=== PATIENT | female | born 1945 | race Caucasian/White ===

== ENCOUNTER → 2017-07-09 10:30 | Outpatient (CLI) | payer OTHER, SELFPAY ==
[2017-07-09 12:01] LABS: Collection Time Urine 24 Hours; Protein (Total) Urine Random 26 mg/dL (0-12); Total Protein 24 Hour Urine 429 mg/day (42-225); Total Volume Urine 1650 mL
[2017-07-09 12:47] LABS: Estimated Glomerular Filt Rate > 60.0 mL/min (>60)
== END ==
PROVIDERS: PCP Physician Assistant; Visit Provider Physician Assistant
DX: I10 Essential (primary) hypertension (principal); R73.01 Impaired fasting glucose; R80.9 Proteinuria, unspecified; E79.0 Hyperuricemia without signs of inflammatory arthritis and tophaceous disease
CPT/HCPCS: 82565; 84156

== ENCOUNTER → 2017-07-22 09:54 | Outpatient (CLI) | payer OTHER, SELFPAY ==
[2017-07-22 11:07] LABS: Hematocrit 41.4 % (36-46); Mean Corpuscular HGB Conc 33.7 % (30-36); Mean Corpuscular Volume 95.1 fL (80-100); Platelet Count 241 X10^3/uL (150-400); Red Blood Cell Count 4.36 X10^6/uL (4.0-5.2); Red Cell Distribution Width 14.1 % (11.6-14.8); White Blood Cell Count 6.4 X10^3/uL (4.5-11.0)
[2017-07-22 11:51] LABS: Blood Urea Nitrogen 16 mg/dL (7-17); Calcium 9.5 mg/dL (8.4-10.2); Carbon Dioxide 29 mmol/L (22-32); Chloride 101 mmol/L (98-107); Estimated Glomerular Filt Rate > 60.0 mL/min (>60); Glucose 118 mg/dL (80-110); HEMOLYSIS < 15 (0-50); Potassium 4.4 mmol/L (3.4-5.1); Sodium 141 mmol/L (137-145)
[2017-07-22 12:22] LABS: Protein (Total) Urine Random 85 mg/dL (0-12); Protein Creatinine Ratio Urine 0.42 GRAM/24H
== END ==
PROVIDERS: Family Provider Physician Assistant; PCP Physician Assistant; Visit Provider Student in an Organized Health Care Education/Training Program
DX: N05.9 Unspecified nephritic syndrome with unspecified morphologic changes (principal); D70.9 Neutropenia, unspecified; D36.10 Benign neoplasm of peripheral nerves and autonomic nervous system, unspecified; R80.9 Proteinuria, unspecified
CPT/HCPCS: 36415; 80048; 82570; 84156; 85027

== ENCOUNTER → 2017-07-29 13:41 | Outpatient (CLI) | payer OTHER, SELFPAY ==
[2017-07-29 13:58] LABS: Bacteria Urine None Seen
[2017-07-29 14:30] LABS: Appearance Urine UA CLEAR; Bilirubin Urine UA NEGATIVE (NEGATIVE); Color Urine UA YELLOW; Glucose Urine UA NEGATIVE (Normal); Ketones Urine UA NEGATIVE (NEGATIVE); Leukocyte Esterase Urine UA NEGATIVE (NEGATIVE); Nitrite Urine UA Negative (Negative); Occult Blood Urine UA TRACE-LYSED (Negative); Protein Urine UA 1+ (Negative); Specific Gravity Urine UA <=1.005 (1.000-1.035); Urobilinogen Urine UA 0.2 E.U./dL (0.2)
[2017-07-29 14:35] LABS: RBC Urine 0-1/HPF (0-5/HPF)
[2017-07-29 14:36] LABS: Culture Indicated Urine Cult Not Indicated; WBC Urine 0-1/HPF (0-5/HPF)
[2017-07-29 17:01] LABS: Hepatitis B Surface Antigen NEGATIVE s/c (NEGATIVE)
[2017-07-29 17:15] LABS: Hep C Virus Ab w/Reflex Quant NEGATIVE s/c (NEGATIVE)
[2017-07-31 14:12] LABS: DNA (DS) Antibody < 1 IU/mL (< 5)
[2017-07-31 14:24] LABS: Hepatitis B Core Antibody Nonreactive (Nonreactive)
[2017-07-31 14:55] LABS: Free Kappa Light Chain 21.8 mg/L (3.3-19.4); Free Kappa/ Lambda Ratio 1.34 (0.26-1.65); Free Lambda 16.3 mg/L (5.7-26.3)
[2017-07-31 15:21] LABS: Hepatitis B Surf Ab Qualitativ Nonreactive (Nonreactive)
[2017-07-31 16:37] LABS: Complement C3 136 mg/dL (83-193)
[2017-07-31 21:10] LABS: ANCA IGG <1:20 FIU (< 1:20)
[2017-08-01 14:05] LABS: Albumin 76 %; Protein/ Creatinine Ratio 1779 mg/g creat (21-161); Total Urine Protein 45 mg/dL (5-24); Urine Creatinine, Random 25 mg/dL (20-320)
[2017-08-02 20:21] LABS: Albumin 3.7 g/dL (3.8-4.8); Alpha 1 Globulin 0.3 g/dL (0.2-0.3); Alpha 2 Globulin 0.8 g/dL (0.5-0.9); Beta 1 Globulin 0.5 g/dL (0.4-0.6); Gamma Globulin 1.2 g/dL (0.8-1.7); Protein, Total 6.8 g/dL (6.1-8.1)
[2017-08-02 22:21] LABS: ANA Screen NEGATIVE (Negative); DNA Antibody Crithidia IFA POSITIVE (Negative); Rheumatoid Factor <14 IU/mL; Sjogren Antiboday SS-A <1.0 NEG AI (<1.0 NEGATIVE); Sjogren Antiboday SS-B <1.0 NEG AI (<1.0 NEGATIVE); Sm Antibody <1.0 NEG AI (<1.0 NEGATIVE); Sm/RNP Antibody <1.0 NEG AI (<1.0 NEGATIVE)
== END ==
PROVIDERS: Family Provider Physician Assistant; PCP Physician Assistant; Visit Provider Student in an Organized Health Care Education/Training Program
DX: N05.9 Unspecified nephritic syndrome with unspecified morphologic changes (principal); D70.9 Neutropenia, unspecified; D63.1 Anemia in chronic kidney disease; R80.9 Proteinuria, unspecified
CPT/HCPCS: 36415; 81001; 82784; 83520; 83883; 84155; 84156; 84165; 84166; 86038; 86160; 86225; 86255; 86334; 86335; 86430; 86704; 86706; 86803; 87340

== ENCOUNTER → 2017-08-04 14:27 | Outpatient (CLI) | payer OTHER, SELFPAY ==
--- NOTE | 2017-08-04 | DI.US.S_ITS ---
PROCEDURE: US RENAL COMPLETE INDICATIONS: Chronic kidney disease stage II TECHNIQUE: Real-time scanning was performed of the kidneys and bladder, with image documentation. COMPARISON: None. FINDINGS: Kidneys: Kidneys are normal in size. Right kidney measures 12.0 cm long; left kidney measures 19.9 cm long. Right renal cortical thickness is 1.5 cm; left renal cortical thickness is 1.9 cm. Renal cortical echotexture is normal. No hydronephrosis. No suspicious solid mass lesions. There is a 7 mm calcification in the superior pole of the right kidney. There is a 14 x 16 x 17 mm cortical cyst in the inferomedial cortex of the right kidney. Bladder: Pre-void bladder volume is 202 mL. Post-void residual is 15 mL. Pre-void images demonstrate no intraluminal masses or stones. On pre-void images, both ureteral jets are noted with color Doppler interrogation. (Of note, ureteral jets may not be detectable in up to 25% of cases due to insufficient differences in specific gravity between ureteral and bladder urine). Miscellaneous: No free pelvic fluid. IMPRESSION: 1. Nonobstructing calcification and simple cyst right kidney. Normal left kidney. 2. Small postvoid bladder residual. Dictated by: Andi Bella M.D. on 08/04/2017 at 15:07 Approved by: Andi Bella M.D. on 08/04/2017 at 15:09
== END ==
PROVIDERS: Family Provider Physician Assistant; PCP Physician Assistant; Visit Provider Student in an Organized Health Care Education/Training Program
DX: N18.2 Chronic kidney disease, stage 2 (mild) (principal); N28.1 Cyst of kidney, acquired
CPT/HCPCS: 76770

== ENCOUNTER → 2017-09-03 13:00 | Outpatient (CLI) | payer OTHER, SELFPAY ==
[2017-09-03 14:10] LABS: Creatinine Urine Random 118.3 mg/dL; Protein (Total) Urine Random 51 mg/dL (0-12); Protein Creatinine Ratio Urine 0.43 GRAM/24H
[2017-09-03 16:05] LABS: HEMOLYSIS < 15 (0-50); Iron 81 ug/dL (37-170)
[2017-09-03 16:06] LABS: Blood Urea Nitrogen 18 mg/dL (7-17); Calcium 9.6 mg/dL (8.4-10.2); Carbon Dioxide 30 mmol/L (22-32); Chloride 102 mmol/L (98-107); Estimated Glomerular Filt Rate 54.5 mL/min (>60); Glucose 99 mg/dL (80-110); HEMOLYSIS < 15 (0-50); Potassium 4.2 mmol/L (3.4-5.1); Sodium 143 mmol/L (137-145)
[2017-09-03 16:16] LABS: Percent Iron Saturation 24 % (15-50); Total Iron Binding Capacity 339 ug/dL (265-497); Transferrin 271 mg/dL (206-381)
[2017-09-03 16:40] LABS: Ferritin 24.8 ng/mL (11.1-264)
[2017-09-03 19:33] LABS: Hematocrit 40.1 % (36-46); Hemoglobin 13.5 g/dL (12.0-16.0)
[2017-09-05 14:17] LABS: Parathyroid Hormone Int 34 pg/mL (14-64)
== END ==
PROVIDERS: PCP Physician Assistant; Visit Provider Student in an Organized Health Care Education/Training Program
DX: N05.9 Unspecified nephritic syndrome with unspecified morphologic changes (principal); D50.0 Iron deficiency anemia secondary to blood loss (chronic); D64.9 Anemia, unspecified; N25.81 Secondary hyperparathyroidism of renal origin; R80.9 Proteinuria, unspecified
CPT/HCPCS: 36415; 80048; 82570; 82728; 83540; 83550; 83970; 84156; 85014; 85018

== ENCOUNTER → 2017-11-27 12:23 | Outpatient (CLI) | payer OTHER, SELFPAY ==
[2017-11-27 12:34] LABS: Bacteria Urine None Seen; RBC Urine None Seen (0-5/HPF)
[2017-11-27 13:09] LABS: Add Manual Diff / Slide Review NO; Basophils Percent Auto 0.6 % (0-2); Eosinophils Percent Auto 3.5 % (2-4); Hematocrit 39.6 % (36-46); Hemoglobin 13.2 g/dL (12.0-16.0); Lymphocytes Percent Auto 23.2 % (25-40); Mean Corpuscular HGB Conc 33.3 % (30-36); Mean Corpuscular Hemoglobin 31.7 PG (26-34); Mean Corpuscular Volume 95.3 fL (80-100); Monocytes Percent Auto 10.2 % (3-14); Neutrophils Absolute Auto 3900 /uL (3000-5900); Neutrophils Percent Auto 62.5 % (50-75); Platelet Count 253 X10^3/uL (150-400); Red Blood Cell Count 4.15 X10^6/uL (4.0-5.2); Red Cell Distribution Width 13.5 % (11.6-14.8); White Blood Cell Count 6.2 X10^3/uL (4.5-11.0)
[2017-11-27 13:17] LABS: Hemoglobin A1C% w Est Avg Glu 5.9 % (4.0-6.0)
[2017-11-27 13:19] LABS: Blood Urea Nitrogen 20 mg/dL (7-17); Calcium 9.3 mg/dL (8.4-10.2); Carbon Dioxide 29 mmol/L (22-32); Chloride 103 mmol/L (98-107); Estimated Glomerular Filt Rate > 60.0 mL/min (>60); Glucose 98 mg/dL (80-110); HEMOLYSIS < 15 (0-50); Potassium 4.1 mmol/L (3.4-5.1); Sodium 145 mmol/L (137-145)
[2017-11-27 13:28] LABS: Appearance Urine UA CLEAR; Bilirubin Urine UA NEGATIVE (NEGATIVE); Color Urine UA YELLOW; Glucose Urine UA NEGATIVE (Normal); Ketones Urine UA TRACE (NEGATIVE); Leukocyte Esterase Urine UA NEGATIVE (NEGATIVE); Nitrite Urine UA Negative (Negative); Occult Blood Urine UA NEGATIVE (Negative); Protein Urine UA NEGATIVE (Negative); Urobilinogen Urine UA 0.2 E.U./dL (0.2)
[2017-11-27 13:42] LABS: Squamous Epithelial Cell Urine 0-1 /HPF; WBC Urine 0-1/HPF (0-5/HPF)
[2017-11-27 13:42] LABS: Transferrin 293 mg/dL (206-381)
[2017-11-27 13:43] LABS: Culture Indicated Urine Cult Not Indicated
== END ==
PROVIDERS: Family Provider Physician Assistant; PCP Physician Assistant; Visit Provider Orthopaedic Surgery
DX: M25.562 Pain in left knee (principal); Z01.812 Encounter for preprocedural laboratory examination; D50.0 Iron deficiency anemia secondary to blood loss (chronic); R73.9 Hyperglycemia, unspecified; N39.0 Urinary tract infection, site not specified; I10 Essential (primary) hypertension; Z01.818 Encounter for other preprocedural examination
CPT/HCPCS: 36415; 80048; 81001; 83036; 84466; 85025; 93005

== ENCOUNTER 2017-12-26 08:09 | Inpatient (IN) | payer OTHER, SELFPAY ==
[2017-12-19 13:37] VITALS: BMI 34.3
[2017-12-26] VITALS (17 sets, daily range): BP systolic 110–163; BP diastolic 56–79; PULSE 60–77; RESP 13–18; TEMP 35.6–37.6; O2SAT 92–100; BMI 34.3
--- NOTE | 2017-12-26 | DI.RAD.S_ITS ---
PROCEDURE: XR KNEE LT 1TO2V INDICATIONS: post operative total left knee TECHNIQUE: 2 view(s) of the knee acquired. COMPARISON: [facility], , KNEE 1-2 VIEWS LEFT, 11/01/2008, 8:19. FINDINGS: Bones: Patient is status post left knee joint arthroplasty. Hardware components are in expected positions. Visualized bony structures are intact. Soft tissues: Overlying postoperative changes are noted. IMPRESSION: Normal alignment after left total knee arthroplasty, a small amount of postoperative gas overlies the adjacent soft tissues. Dictated by: Cristopher Mustafa M.D. on 12/26/2017 at 15:47 Approved by: Cristopher Mustafa M.D. on 12/26/2017 at 15:48
[2017-12-26] MEDS: LACTATED RINGERS 1,000 ML 42 ML IV (09:00)
[2017-12-26] MEDS: ACETAMINOPHEN 325 MG TABLET 975 MG PO (09:12)
[2017-12-26] MEDS: PREGABALIN 75 MG CAPSULE PO (09:12)
--- NOTE | 2017-12-26 09:48 | PM.PREOP ---
Pre-operative Note Interval Note Pre-op Check: Yes History & Physical Reviewed by Physician and Yes Exam Performed Changes: No
--- NOTE | 2017-12-26 10:01 | PM.OP.1 ---
Operative Date/Time/Diagnoses Date of procedure: 12/26/17 Time of procedure: 12:20 Pre-op diagnosis: Left knee osteoarthritis Post-op diagnosis: same Procedure & Clinicians Procedure: Left total knee replacement Same procedure as scheduled: Yes Indications: The patient has had progressively worsening left knee pain with radiographic changes consistent with arthritis. Non-operative management has failed and the patient has requested total knee replacement. The risks, benefits and alternatives to surgery were discussed with the patient prior to proceeding. Risks discussed included, but were not limited to, failure to relieve pain, stiffness, infection, nerve damage, deep venous thrombosis, pulmonary embolism, stroke, coma, heart attack, permanent paralysis and , as well as the potential need for eventual revision of the prosthetic. Surgeon: Obinna Ch Milieu Counselor: Carlie Leonard Click Yes if Unassisted: No Anesthesia Type: General, Spinal and Local Operative Notes Findings: Severe tricompartmental osteoarthritis with very large osteophytes and significant medial tibial plateau erosion. Closure Type: primary Specimen(s): none sent Implants & Drains: Implants used in this procedure were manufactured by the [employer] and [employer] and included the BCS II Journey total knee replacement with a size 3 left cobalt chromium femur, size 2 left non porous tibial base plate with a 10 mm cross-linked polyethylene insert and a size 29 oval Salma II patellar component. Applied: graft(s) Estimated Blood Loss (mL): 25 Blood products transfused: none Tourniquet time (min): 59 Procedure in detail: The patient was seen in the pre-operative area, where the left knee was identified as the operative site and this was marked with my initials. The patient received pre-operative antibiotics, and was taken to the operating room and placed on the operative table in the supine position. After satisfactory anesthesia, a real time operator out? was performed. The left leg was encircled with a tourniquet about the proximal thigh, and the leg was prepared from the toes to the tourniquet with ChloroPrep in the usual fashion and draped through sterile drapes. The leg was elevated and exsanguinated with Eschmark bandage and the tourniquet inflated to 250 mmHg pressure. The knee was approached through an approximately 18 cm incision centered over the patella and carried into the knee through a medial parapatellar arthrotomy. The anterior osteophytes and soft tissues were removed. The rotational landmarks of Verbank's line and the transepicondylar axis were marked on the femur with electrocautery, and intramedullary guide holes for the femur and tibia were created. The distal femoral cut was made in 6 degrees of valgus using the intramedullary guide at the primary cut setting. The proximal tibial cut was then made using the intramedullary guide, taking 1 mm of bone off the more involved side. The extension gap was checked and the rotation of the femoral component confirmed with the gap balancing blocks. The anterior, posterior and chamfer cuts were then made. The posterior osteophytes and soft tissues were then removed. The posterior capsule was injected with part of a mixture of 50 ml 0.25% Marcaine mixed with 20 ml Exparel and 4 mg of morphine for post-operative pain control. The remainder of this mixture was injected into the capsule and subcutaneous tissues during cement curing. The tibia was prepared with the rotation set by an extra medullary guide. Trial tibial and femoral components were then placed and the intercondylar notch cut through the femoral trial. Range of motion was 0-120 degrees, with good stability throughout the range. Further flexion was limited by the patient's body habitus. The patella was then cut to accommodate the patellar prosthetic. There was no need for a lateral release. The trials were then removed, and the femoral hole plugged with a bone plug. The bone was prepared with pulsatile lavage, and dried with a sponge. Cement was applied and the final prosthetics placed. Excess cement was removed during and after cement curing. After confirming there was no extruded cement posteriorly, the final tibial insert was placed. The knee was copiously irrigated and the tourniquet deflated. Hemostasis was obtained. The capsule was closed with interrupted # 2 polyester sutures. The subcutaneous layer was closed with 3-0 Vicryl, and the skin with a running 3-0 V-Lock suture and SteriStrips. An Aquacel Ag dressing was applied and the patient was taken to recovery having tolerated the procedure well. Complications: none Condition: stable Disposition: PACU Plan for aftercare: The patient will be maintained on a standard total knee replacement protocol with weight bearing as tolerated. The patient will receive aspirin and sequential compression devices for DVT prophylaxis. The patient will be discharged home when safe for the home environment.
[2017-12-26] MEDS: CEFAZOLIN 2 GM/100 ML FROZ.PIGGY IV ×2 (10:38→18:17)
--- NOTE | 2017-12-26 11:16 | SUR.OPER ---
Supine on padded OR bed. Pillow under head, arms secured on padded armboards <90 degree abduction. Safety belt across torso. Non-operative leg secured with tape over blanket over lower leg. Operative leg secured in DeMayo/Max positioner. Foam padded brace at thigh of operative leg.
[2017-12-26] MEDS: BUPIVACAINE LIPOSOME 266 MG/20 ML VIAL INJ (11:23)
[2017-12-26] MEDS: BUPIVACAINE 0.25% W/ EPI VIAL 50 ML INJ (11:23)
[2017-12-26] MEDS: MORPHINE 4 MG/ML INJ IM (11:24)
[2017-12-26] MEDS: TRANEXAMIC ACID 1,000 MG VIAL 2000 MG INJ (11:25)
--- NOTE | 2017-12-26 13:19 | SUR.PHASEI ---
Report called to Will Gutiérrez on acute care. Pt in stable condition, vss. Pt being transferred to acute care floor at this time.
--- NOTE | 2017-12-26 13:31 | SUR.PHASEI ---
PT TRANSFERED TO ACUTE CARE FLOOR. PT TALKING TO RN DURING TRANSPORT. BEDSIDE REPORT GIVEN TO THAO LONGO AND TRANSFERED CARE OF PT TO HER AT THAT TIME.
[2017-12-26] MEDS: LACTATED RINGERS 1,000 ML 125 ML IV ×2 (13:47→22:20)
--- NOTE | 2017-12-26 13:58 | PC.NURSE ---
post-op patient awake, conversant, denies pain. denies nausea. scd's on. given ice chips. ivf infusing per orders. vss. sat 97% on 1L/nc. spouse at bedside. jaun wrap with aquacel cdi. no drain. cms intact. full sensation, able to wiggle toes. extremities warm.
[2017-12-26] MEDS: HYDROCODONE/ACET 5/325 TABLET 2 TAB PO ×2 (14:27→15:19)
[2017-12-26] MEDS: ONDANSETRON 4 MG/2 ML INJ IV ×2 (15:19→22:31)
--- NOTE | 2017-12-26 16:16 | PT.IPTN ---
Current Diagnoses Bilateral primary osteoarthritis of knee (12/26/17) Surgery Performed Operation Date: 12/26/17 10:15 Actual Procedures p Total Knee Arthroplasty(Left) - Obinna Ch MD Physical Therapy Treatment Note M3 PT-IP Subjective Start: 12/26/17 16:15 Freq: NEEDED Status: Active Protocol: Document 12/26/17 16:16 [facility] (Rec: 12/26/17 16:18 [facility] [id number]) Subjective Physical Therapy Visit Type Type Patient Unavailable Notes pt with RT at this time, not available for physical therapy assessment. Will attempt tomorrow in a.m.
[2017-12-26] MEDS: HYDROMORPHONE 1 MG INJ 0.5 MG IV (18:17)
[2017-12-26] MEDS: RAMIPRIL 5 MG CAPSULE 10 MG PO (20:39)
[2017-12-26] MEDS: DOCUSATE 100 MG CAPSULE PO (20:39)
[2017-12-26] MEDS: SIMVASTATIN 40 MG TABLET PO (20:39)
[2017-12-26] MEDS: METOPROLOL IR 50 MG TABLET PO (20:39)
[2017-12-26] MEDS: ASPIRIN EC 81 MG TABLET PO (20:39)
[2017-12-26] MEDS: BECLOMETHASONE 80 MCG INH 10.6 GM 1 PUFF INH (21:24)
[2017-12-27] VITALS (8 sets, daily range): BP systolic 115–136; BP diastolic 57–69; PULSE 56–75; RESP 15–17; TEMP 36.4–37.2; O2SAT 94–98
[2017-12-27] MEDS: HYDROCODONE/ACET 5/325 TABLET 2 TAB PO ×4 (01:53→17:39)
[2017-12-27] MEDS: CEFAZOLIN 2 GM/100 ML FROZ.PIGGY IV (01:55)
[2017-12-27] MEDS: BECLOMETHASONE 80 MCG INH 10.6 GM 1 PUFF INH ×2 (05:17→17:37)
[2017-12-27] MEDS: DOCUSATE 100 MG CAPSULE PO ×2 (08:15→20:35)
[2017-12-27] MEDS: ALLOPURINOL 100 MG TABLET PO (08:15)
[2017-12-27 08:16] LABS: Hematocrit 34.4 % (36-46); Hemoglobin 11.7 g/dL (12.0-16.0)
[2017-12-27] MEDS: ASPIRIN EC 81 MG TABLET PO ×2 (08:16→20:35)
[2017-12-27] MEDS: METOPROLOL IR 50 MG TABLET PO ×2 (08:16→20:35)
[2017-12-27] MEDS: RAMIPRIL 5 MG CAPSULE 10 MG PO ×2 (08:16→20:35)
--- NOTE | 2017-12-27 09:04 | P.PN_ITS ---
Subjective Date Patient Seen: 12/27/17 Time Patient Seen: 09:01 Interval history: Patient had nausea and a couple episodes of vomiting yesterday afternoon. Nausea has resolved. Pain moderate. Has not yet worked with physical therapy. Has been up to use the bedside commode. Otherwise without complaints. Exam Vital Signs (past 8 hours): - 12/27/17 05:17 12/27/17 06:40 12/27/17 08:25 Temperature 98.0 F 98.4 F Pulse Rate 71 61 67 Respiratory Rate 16 16 15 Blood Pressure 136/60 119/63 Pulse Oximetry 95 96 94 Oxygen Delivery Method Room Air Oxygen Flow Rate 2 Narrative Exam Narrative: 71-year-old female resting comfortably in bed in no apparent distress. Left knee dressing is clean, dry and intact. Motor functions intact distal left lower extremity. Sensation grossly intact to light touch. Objective Labs Result Diagrams: 12/27/17 07:44 Labs: Laboratory Results - last 24 hr 12/27/17 07:44 Hgb 11.7 L Hct 34.4 L Assessment & Plan Post-op Postoperative Procedures Operation Date: 12/26/17 10:15 Actual Procedures Side Surgeon p Total Knee Arthroplasty Left Obinna Ch MD Postop day 1 status post left total knee replacement. Mobilize with physical therapy today. Likely discharged home tomorrow. Patient is taking [place] 5/325 mg and will continue this at home. She is reminded to adjust her daily Tylenol dose at home. Quality VTE Deep Vein Thrombosis/Pulmonary Embolism Present on Admission: No
--- NOTE | 2017-12-27 10:00 | PT.IIE ---
Current Diagnoses Bilateral primary osteoarthritis of knee (12/26/17) Surgery Performed Operation Date: 12/26/17 10:15 Actual Procedures p Total Knee Arthroplasty(Left) - Obinna Ch MD Surgical History (Last Updated 12/19/17 @ 13:48 by Alison Bland, RN) History of lobectomy of lung (Acute ~12/2016) Hx of tubal ligation (Resolved) Medical History (Last Updated 12/19/17 @ 13:47 by Alison Bland RN) Adenocarcinoma of left lung (Acute ~11/2016) Asthma (Chronic) DJD (degenerative joint disease) of knee (Chronic) Gout (Chronic) Hyperlipemia (Chronic) Hypertension (Chronic) Osteoarthritis (Chronic) Physical Therapy Inpatient Evaluation/Re-Eval M1 PT/OT-IP Prior Functional Status Start: 12/26/17 16:15 Freq: NEEDED Status: Active Protocol: Document 12/27/17 10:00 [facility] (Rec: 12/27/17 10:11 [facility] [id number]) Medical Review Prior Functional Status Medical History Reviewed Yes Mobility and Gait indep. community ambulator without device. Activities of Daily Living and IADL's indep. I/ADLs including driving Social History Household Members spouse Living Arrangements Apartment/Condo Number of Floors (Floors) One Floor Number of Stairs To Enter/Railing? no steps to enter/exit Home Environment High Toilet Walk in Shower Tub/Shower Home Equipment Front Wheel Walker Raised Toilet Seat Without Armrests Shower Seat with Backrest M2 PT-IP Current Condition Start: 12/26/17 16:15 Freq: NEEDED Status: Active Protocol: Document 12/27/17 10:00 [facility] (Rec: 12/27/17 10:11 [facility] [id number]) Physical Therapy Current Condition Current Condition Evaluation Date 12/27/17 Treatment Diagnosis L TKA 12/26/2017, impaired gait and mobility Onset Date 12/26/17 Weight Bearing Status Weight Bearing Status Weight Bear as Tolerated M3 PT-IP Subjective Start: 12/26/17 16:15 Freq: NEEDED Status: Active Protocol: Document 12/27/17 10:00 [facility] (Rec: 12/27/17 10:11 [facility] [id number]) Subjective Physical Therapy Visit Type Type Initial Evaluation Visit Start Time 09:30 Visit Stop Time 10:00 Total Visit Minutes 30 Number of DATA PROCESSING SPECIALIST Visits 0 Physical Therapy Visit Comments Patient Comments pt states that she is ready to get up, she has been to the [facility]. Patient Goals be able to go home tomorrow Therapy Pain Assessment Pain When Pain Assessed At Rest Pain Present Pain Present Pain Reported Location L knee Intensity 2 Scale Used Numeric (1 - 10) M4 PT-IP Mobility and Gait Start: 12/26/17 16:15 Freq: NEEDED Status: Active Protocol: Document 12/27/17 10:00 [facility] (Rec: 12/27/17 10:11 [facility] [id number]) PT-Bed Mobility Assessment Supine to Sit Supine to Sit Contact Guard Assistance Scooting Scooting to Edge of Bed Independent PT-Transfer Assessment Sit to and From Stand Sit to and from Stand Standby Assistance Equipment Transfer Assistive Device Gait Belt Front Wheeled Walker Transfers Transfer Destination Chair Transfer Technique Stand Step Pivot Transfer Ability Level of Assist Standby Assistance Gait Assessment Gait Gait Assistance Required: Standby Assistance Distance (Feet) 30 Assistive Devices Assistive Device Gait Belt Front Wheeled Walker Gait Deviations General Gait Pattern Antalgic Decreased Stride Length Decreased Feet Clearance Factors Limiting Gait Function Factors Limiting Gait Function Decreased Activity Tolerance Decreased Strength Limited Range of Motion Pain Comments Gait Comments step-to pattern PT-Balance Assessment Sitting Balance and Reactions Static Sitting Balance Ability Good Dynamic Sitting Balance Ability Good Standing Balance and Reactions Static Standing Balance Ability Good Dynamic Standing Balance Ability Fair Device Used FWW M5 PT-IP Objective Assessments Start: 12/26/17 16:15 Freq: NEEDED Status: Active Protocol: Document 12/27/17 10:00 [facility] (Rec: 12/27/17 10:11 [facility] [id number]) Orientation Orientation/Cognition Level of Alertness Alert Orientation Name Age Birthday Month Date Year Day of Week Place Situation Gross Range of Motion Lower Extremity ROM Assessment Left Impaired Impairments L knee AROM- 8-89 degrees Strength Lower Extremity Strength Hip L hip flexion 3/5 Knee L knee flexion and extension 3 +/5 Sensation Assessment Sensation Gross Sensation WNL Light Touch Intact M6 PT-IP Treatment Start: 12/26/17 16:15 Freq: NEEDED Status: Active Protocol: Document 12/27/17 10:00 [facility] (Rec: 12/27/17 10:11 [facility] [id number]) Physical Therapy Treatment Exercises Exercises Seated Knee Flexion/Extension Education Education Provided Post-Op Packet Safety M7 PT-IP Assessment and Plan Start: 12/26/17 16:15 Freq: NEEDED Status: Active Protocol: Document 12/27/17 10:00 [facility] (Rec: 12/27/17 10:11 [facility] [id number]) PT Summary Assessment and Plan Potential Rehabilitation Potential Excellent Status of Condition at Evaluation Stable Summary Impairments Pain ROM Strength Balance Transfers Gait Activity Tolerance Assessment Summary POD #1 L TKA. Pt able to lift her LLE without manual assistance. She tolerated ambulation in room well, with proper sequencing and a step- to gait pattern. Pt has support/assistance at home from , expect pt to be able to d/c home when medically stable and cleared by ortho. Goals Bed Mobility Goal Standby Assistance Transfer Goal Standby Assistance Gait Goal Standby Assistance Gait Distance 150 Days to Meet Goals 2 Frequency of Treatment Frequency Of Treatment Twice a Day Treatment Plan Physical Therapy Treatment Plan Bed Mobility Training Transfer Training Gait Training Therapeutic Exercise Balance Retraining Discharge Planning Hot or Cold Pack Neuromuscular Re-ed Recommendations To Nursing Amount of Assist Needed 1 Person Assist Discharge Recommendations PT Discharge Recommendations Home with Assistance Outpatient PT
--- NOTE | 2017-12-27 11:15 | CM.DANOTE ---
Patient is a 71 year old female who was admitted on 12/26/17 for Left Total Knee. Pt has [facility] for insurance and her PCP is Dr. Cook. EMR was reviewed. Per MD, pt tolerated procedure well but having some nausea and not stable for d/c home yet today. Per PT, pt participated and spouse bedside and present for CG training and likely home pending further PT. SW met bedside with pt and spouse and explained role and pt confirmed that she lives in [place] in a condo with her spouse and is Independent with ADL's at baseline. Pt states that her spouse can provide assist and transport at d/c and local son who lives in [place] can assist as well if needed. Pt denies any hx of HH or SNF and DPOA is her spouse. Pt and spouse do not anticipate any SW needs at d/c and preference is home with spouse and adult son support. Plan: SW to follow for further PT towards likely d/c home with spouse and adult son support when medically stable. YEN Ramirez Discharge Planning/Care Management CM Discharge Assessment Start: 12/27/17 11:11 Freq: Status: Active Protocol: Document 12/27/17 11:11 [facility] (Rec: 12/27/17 11:15 [facility] [id number]) Discharge Planning Assessment Assigned Fitter Arm[employer] YEN Mercer DPOA/Assigned Designee Name spouse Rai Contact Information [phone] Advance Directives? Yes Advance Directives on File No History Provided By Patient Family Member Medical Record Has Patient been admitted in last 30 No days? Prior Living Arrangements Apartment/Condo Household Members spouse Type of transporation used prior to Drives own vehicle admit Independent with ADL's Yes Is patient alert and oriented? Yes Caregiver for Another No DME Already Rented / Owned Bath Bench FWW / Walker Comment Likely home with spouse and local son support pending further PT Barriers to Discharge No Discharge Plan Home Community Services Physical Therapy Transportation Arrangement Spouse can provide transport home at d/c. Referrals Initiated None needed Whiteboard Updated in Patient Room with Yes name and ext. # of [employer]itter Armament Review Status In Process Please Provide Date Initial DC 12/27/17 Assessment Was Performed Next Review Type Continued Stay Review Pre-Anesthesia Assessment Start: 12/19/17 13:37 Freq: Status: Active Protocol: Document 12/19/17 13:37 [facility] (Rec: 12/19/17 14:32 [facility] [id number]) Pre-Anesthesia Assessment Patient Information Reviewed Via Phone Assessment Assessment Completed With Patient Primary Care Provider Monica Cook Medical Clearance Received Yes Seen Specialist in Last 12 Months Yes Specialist Seen Aligning Inspector Orthopedist Gun Perforator Loader Other Comment Thoracic surgeon Primary Language Romanian Civil Attorney Required No Height 149.86 cm Weight 77.111 kg Body Mass Index (BMI) 34.3 Hearing Ability Normal Visual Assist Glasses Dentition Type Teeth, Natural Present Teeth, Missing Barriers to Learning None Hx Anesthesia Reactions No Hx Family Anesthesia Reaction No Hx Malignant Hyperthermia No Hx Blood Transfusions No Anesthesia Review Requested Yes Measuring Clerk No alcohol intake current alcohol intake frequency holidays/special occasions only Smoking Status Never smoker Substance Use Type does not use Pain Present Pain Reported Musculoskeletal Symptoms Abnormal Gait Difficulty Walking Joint Pain History of Falling (Recent or History of Yes ) Patient is completely paralyzed or No completely immobile Mental Status Oriented to own ability Is patient on oxygen? No Does patient have KIRKPATRICK/SOB No: Only SOB w/asthma flare- ups Hx Sleep Apnea No Suspected Sleep Apnea No Currently Taking a Beta Samantha No Can You Climb a Flight of Stairs Without No SOB Hx Chest Pain No Hx SOB No Hx Syncope or Dizziness No Anti-Coagulant Therapy No Has a Milled Rice Broker No Cardiac Testing No Hx Pacemaker/ICD No Pacemaker Rep Required? No Cardiac Clearance Received Not Applicable Diet Type At Home Regular dysphagia Yes: Occasional choking, I don't take my time Bladder Pattern Incontinent, Stress Nocturia Urinary Catheter Present No Hx Urinary Self Catheterization No Comment CKD Stage II Diabetes No: Pre-Diabetes HgbA1C 5.9 Date 11/27/17 Patient No Lactating No Hx Drug Resistant Organism No Presence of External or Internal Medical No Devices Have you traveled outside the [facility] in the last 30 days? Marital Status Lives With spouse Prior Living Arrangements Apartment/Condo Number of Floors (Floors) One Floor Number of Stairs To Enter/Railing? none Support System Child/Children Spouse Does the Patient Have Assistance After Yes Surgery Patient Discharge Plan Description Return Home Comment Pt has not been advised on length of stay per surgeon's office Feels Safe in Current Environment Yes Been Physically Hurt or Threatened By a No Person in Current Environment Do you have thoughts of harming yourself None or others? Are you currently considering suicide? No Do you have a plan to hurt yourself or No Plan others? Do You Have Any Spiritual Beliefs That No May Affect Your HC Choices? Do You Have Any Cultural Practices That No May Affect Your HC Choices? Spiritual Referral None Comment Gnosticist - Pt will reach out to make arrangements on her own Who Can We Speak to About Patient's Care Family, friends Identifying Code for Release of Patient Declines to issue Information Health Care Proxy/Next of Kin Jamel () Health Care Proxy Emergency Contact Name Jamel () Emergency Contact Advance Directives? Yes Advance Directives on File No Requested Patient Bring Advanced Yes Directives DOS Power of Health Technical Writer No PAC Instructions Do not shave/clip surgical site Durable medical equipment Medications to take/avoid Nasal antibiotic No ETOH/petroleum product on skin DOS NPO Post-op transportation Pre-surgical wash Sturdy shoes/comfortable clothes Do not bring valuables and remove jewelry
--- NOTE | 2017-12-27 14:40 | PT.IPTN ---
Current Diagnoses Bilateral primary osteoarthritis of knee (12/26/17) Surgery Performed Operation Date: 12/26/17 10:15 Actual Procedures p Total Knee Arthroplasty(Left) - Obinna Ch MD Physical Therapy Treatment Note M2 PT-IP Current Condition Start: 12/26/17 16:15 Freq: NEEDED Status: Active Protocol: Document 12/27/17 10:00 [facility] (Rec: 12/27/17 10:11 [facility] [id number]) Physical Therapy Current Condition Current Condition Evaluation Date 12/27/17 Treatment Diagnosis L TKA 12/26/2017, impaired gait and mobility Onset Date 12/26/17 Weight Bearing Status Weight Bearing Status Weight Bear as Tolerated M3 PT-IP Subjective Start: 12/26/17 16:15 Freq: NEEDED Status: Active Protocol: Document 12/27/17 14:40 [facility] (Rec: 12/27/17 16:13 [facility] [id number]) Subjective Physical Therapy Visit Type Type Treatment Note Visit Start Time 14:00 Visit Stop Time 14:40 Total Visit Minutes 40 Number of RECRUITING SCHEDULER Visits 1 Physical Therapy Visit Comments Patient Comments Pt states that she would like to use the bathroom. Therapy Pain Assessment Pain When Pain Assessed At Rest Pain Present Pain Present Pain Reported Location L knee Intensity 2 Scale Used Numeric (1 - 10) M4 PT-IP Mobility and Gait Start: 12/26/17 16:15 Freq: NEEDED Status: Active Protocol: Document 12/27/17 14:40 [facility] (Rec: 12/27/17 16:13 [facility] [id number]) PT-Bed Mobility Assessment Supine to Sit Supine to Sit Contact Guard Assistance Scooting Scooting to Edge of Bed Independent PT-Transfer Assessment Sit to and From Stand Sit to and from Stand Standby Assistance Equipment Transfer Assistive Device Gait Belt Front Wheeled Walker Transfers Transfer Destination Chair Toilet Transfer Ability Level of Assist Standby Assistance Gait Assessment Gait Gait Assistance Required: Standby Assistance Distance (Feet) 80 Assistive Devices Assistive Device Gait Belt Front Wheeled Walker Gait Deviations General Gait Pattern Antalgic Decreased Stride Length Decreased Feet Clearance Factors Limiting Gait Function Factors Limiting Gait Function Decreased Activity Tolerance Decreased Strength Limited Range of Motion Pain M5 PT-IP Objective Assessments Start: 12/26/17 16:15 Freq: NEEDED Status: Active Protocol: Document 12/27/17 10:00 [facility] (Rec: 12/27/17 10:11 [facility] [id number]) Orientation Orientation/Cognition Level of Alertness Alert Orientation Name Age Birthday Month Date Year Day of Week Place Situation Gross Range of Motion Lower Extremity ROM Assessment Left Impaired Impairments L knee AROM- 8-89 degrees Strength Lower Extremity Strength Hip L hip flexion 3/5 Knee L knee flexion and extension 3 +/5 Sensation Assessment Sensation Gross Sensation WNL Light Touch Intact M6 PT-IP Treatment Start: 12/26/17 16:15 Freq: NEEDED Status: Active Protocol: Document 12/27/17 14:40 [facility] (Rec: 12/27/17 16:13 [facility] [id number]) Physical Therapy Treatment Exercises Exercises Ankle Pumps Quad Sets Straight Leg Raises Seated Knee Flexion/Extension M7 PT-IP Assessment and Plan Start: 12/26/17 16:15 Freq: NEEDED Status: Active Protocol: Document 12/27/17 14:40 [facility] (Rec: 12/27/17 16:13 GGD [id number]) PT Summary Assessment and Plan Summary Assessment Summary Pt improving with mobility and gait tolerance. Pt was able to progress gait with cues for gait pattern. She was able to progress to step through gait pattern. She safe to D/C home when medically stable. Frequency of Treatment Frequency Of Treatment Twice a Day Treatment Plan Physical Therapy Treatment Plan Bed Mobility Training Transfer Training Gait Training Therapeutic Exercise Balance Retraining Discharge Planning Hot or Cold Pack Neuromuscular Re-ed Recommendations To Nursing Amount of Assist Needed 1 Person Assist Discharge Recommendations PT Discharge Recommendations Home with Assistance Outpatient PT
[2017-12-27] MEDS: SIMVASTATIN 40 MG TABLET PO (20:35)
[2017-12-28] MEDS: hydrOXYzine pamoate 25 MG CAPSULE PO (03:17)
[2017-12-28 03:23] VITALS: O2SAT 100
[2017-12-28 06:46] VITALS: RESP 16
[2017-12-28 07:14] VITALS: BP 145/65; PULSE 71; RESP 16; TEMP 37.3; O2SAT 98
[2017-12-28] MEDS: HYDROMORPHONE 2 MG TABLET PO (07:37)
[2017-12-28 07:41] VITALS: PULSE 75; RESP 14; O2SAT 97
[2017-12-28] MEDS: BECLOMETHASONE 80 MCG INH 10.6 GM 1 PUFF INH (07:41)
[2017-12-28] MEDS: ALLOPURINOL 100 MG TABLET PO (08:01)
[2017-12-28] MEDS: DOCUSATE 100 MG CAPSULE PO (08:01)
[2017-12-28] MEDS: METOPROLOL IR 50 MG TABLET PO (08:01)
[2017-12-28] MEDS: ASPIRIN EC 81 MG TABLET PO (08:02)
[2017-12-28] MEDS: RAMIPRIL 5 MG CAPSULE 10 MG PO (08:02)
[2017-12-28 09:00] VITALS: BP 132/58; PULSE 71; RESP 16; TEMP 36.8; O2SAT 94
--- NOTE | 2017-12-28 10:35 | PM.PNPO.1 ---
Subjective Date Patient Seen: 12/28/17 Time Patient Seen: 10:35 Interval history: Patient is status post a left total knee arthroplasty. Patient doing very well today. Much better pain control. Patient has progressed very well with physical therapy and is ready to go home. Exam Vital Signs (past 8 hours): - 12/28/17 03:23 12/28/17 06:46 12/28/17 07:14 Temperature 99.1 F Pulse Rate 71 Respiratory Rate 16 16 Blood Pressure 145/65 H Pulse Oximetry 100 98 12/28/17 07:41 12/28/17 09:00 Temperature 98.3 F Pulse Rate 75 71 Respiratory Rate 14 16 Blood Pressure 132/58 L Pulse Oximetry 97 94 Oxygen Delivery Method Room Air Oxygen Flow Rate 0 Narrative Exam Narrative: Patient's incision is clean and dry. Positive dorsiflexion and plantar flexion. Nontender to the posterior aspect bilateral calves. Palpable pedal pulses. 5/5 dorsiflexion and plantar flexion of the toes and ankle. Objective Labs Result Diagrams: 12/27/17 07:44 Assessment & Plan Post-op Postoperative Procedures Operation Date: 12/26/17 10:15 Actual Procedures Side Surgeon p Total Knee Arthroplasty Left Obinna Ch MD Postoperative day: 2 Postoperative status: doing well Postoperative plan: routine post-op care and discharge Postoperative plan narrative: Patient will be discharged home today. Time Spent With Patient less than 15 minutes Quality VTE Deep Vein Thrombosis/Pulmonary Embolism Present on Admission: No
--- NOTE | 2017-12-28 11:13 | PT.IPTN ---
Current Diagnoses Bilateral primary osteoarthritis of knee (12/26/17) Surgery Performed Operation Date: 12/26/17 10:15 Actual Procedures p Total Knee Arthroplasty(Left) - Obinna Ch MD Physical Therapy Treatment Note M2 PT-IP Current Condition Start: 12/26/17 16:15 Freq: NEEDED Status: Active Protocol: Document 12/27/17 10:00 [facility] (Rec: 12/27/17 10:11 [facility] [id number]) Physical Therapy Current Condition Current Condition Evaluation Date 12/27/17 Treatment Diagnosis L TKA 12/26/2017, impaired gait and mobility Onset Date 12/26/17 Weight Bearing Status Weight Bearing Status Weight Bear as Tolerated M3 PT-IP Subjective Start: 12/26/17 16:15 Freq: NEEDED Status: Active Protocol: Document 12/28/17 09:26 LJ (Rec: 12/28/17 11:13 LJ [id number]) Subjective Physical Therapy Visit Type Type Treatment Note Visit Start Time 09:26 Visit Stop Time 09:48 Total Visit Minutes 24 Notes Pt requesting walk then shower . Therapy Pain Assessment Pain When Pain Assessed During Mobility Pain Present Pain Present Pain Reported M4 PT-IP Mobility and Gait Start: 12/26/17 16:15 Freq: NEEDED Status: Active Protocol: Document 12/28/17 09:26 LJ (Rec: 12/28/17 11:13 LJ [id number]) PT-Transfer Assessment Sit to and From Stand Sit to and from Stand Standby Assistance Equipment Transfer Assistive Device Gait Belt Front Wheeled Walker Transfers Transfer Destination Chair Transfer Ability Level of Assist Standby Assistance Comments Mobility Comments Pt able to sit<>stand to/from chair SBA. Appears stable on static and dynamic standing. Gait Assessment Gait Gait Assistance Required: Standby Assistance Distance (Feet) 210 Assistive Devices Assistive Device Gait Belt Front Wheeled Walker Gait Deviations General Gait Pattern Antalgic Decreased Stride Length Decreased Feet Clearance Factors Limiting Gait Function Factors Limiting Gait Function Decreased Activity Tolerance Decreased Strength Limited Range of Motion Pain Comments Gait Comments normalizing to step through pattern with cues M5 PT-IP Objective Assessments Start: 12/26/17 16:15 Freq: NEEDED Status: Active Protocol: Document 12/27/17 10:00 [facility] (Rec: 12/27/17 10:11 [facility] [id number]) Orientation Orientation/Cognition Level of Alertness Alert Orientation Name Age Birthday Month Date Year Day of Week Place Situation Gross Range of Motion Lower Extremity ROM Assessment Left Impaired Impairments L knee AROM- 8-89 degrees Strength Lower Extremity Strength Hip L hip flexion 3/5 Knee L knee flexion and extension 3 +/5 Sensation Assessment Sensation Gross Sensation WNL Light Touch Intact M6 PT-IP Treatment Start: 12/26/17 16:15 Freq: NEEDED Status: Active Protocol: Document 12/28/17 09:26 (Rec: 12/28/17 11:13 [id number]) Physical Therapy Treatment Exercises Exercises Ankle Pumps Quad Sets Straight Leg Raises Seated Knee Flexion/Extension M7 PT-IP Assessment and Plan Start: 12/26/17 16:15 Freq: NEEDED Status: Active Protocol: Document 12/28/17 09:26 (Rec: 12/28/17 11:13 [id number]) PT Summary Assessment and Plan Summary Assessment Summary Pt demonstrates better step thru pattern and upright posture. Will DC home this afternoon. Given education on leg extension exercises. Left pt in chair with ice. Frequency of Treatment Frequency Of Treatment Twice a Day Treatment Plan Physical Therapy Treatment Plan Bed Mobility Training Transfer Training Gait Training Therapeutic Exercise Balance Retraining Discharge Planning Hot or Cold Pack Neuromuscular Re-ed Recommendations To Nursing Amount of Assist Needed 1 Person Assist Discharge Recommendations PT Discharge Recommendations Home with Assistance Outpatient PT
--- NOTE | 2017-12-28 11:54 | CM.DPC ---
DCP/continued: Reviewed chart. Patient with order to d/c home today. Attempted to meet with patient to confirm plan. RN reports that patient left after orders for discharge had been written with no identified d/c planning needs. P: Home today. YEN Montgomery
== END 2017-12-28 11:31 | disposition home or self-care (01) | DRG 470 ==
PROVIDERS: Admitting Provider Orthopaedic Surgery; PCP Physician Assistant; Visit Provider Orthopaedic Surgery
PROC: 0SRD0JZ Replacement of Left Knee Joint with Synthetic Substitute, Open Approach (ICD-10-PCS; CPT 27447; principal; 2017-12-26 10:15)
DX: M17.12 Unilateral primary osteoarthritis, left knee (principal); M32.9 Systemic lupus erythematosus, unspecified; I10 Essential (primary) hypertension; N28.9 Disorder of kidney and ureter, unspecified; E78.5 Hyperlipidemia, unspecified; E11.9 Type 2 diabetes mellitus without complications; J45.909 Unspecified asthma, uncomplicated; M25.762 Osteophyte, left knee; M85.862 Other specified disorders of bone density and structure, left lower leg; R11.2 Nausea with vomiting, unspecified
CPT/HCPCS: 36415; 73560; 85014; 85018; 94640; 94760; 97110; 97116; 97161; 97530; C1776; C9290; J0690; J1100; J1170; J2250; J2270; J2405; J2704; J3010

== ENCOUNTER → 2018-03-05 12:34 | Outpatient (CLI) | payer OTHER, SELFPAY ==
[2017-12-26 13:35] VITALS: BMI 34.3
[2018-03-05 13:26] LABS: Hematocrit 40.3 % (36-46); Hemoglobin 13.5 g/dL (12.0-16.0)
[2018-03-05 13:58] LABS: HEMOLYSIS < 15 (0-50); Iron 98 ug/dL (37-170)
[2018-03-05 14:01] LABS: BUN Creatinine Ratio 24.4 (6-22); Blood Urea Nitrogen 22 mg/dL (7-17); Calcium 9.6 mg/dL (8.4-10.2); Carbon Dioxide 27 mmol/L (22-32); Chloride 103 mmol/L (98-107); Estimated Glomerular Filt Rate > 60.0 mL/min (>60); Glucose 84 mg/dL (80-110); HEMOLYSIS < 15 (0-50); Potassium 4.3 mmol/L (3.4-5.1); Sodium 140 mmol/L (137-145)
[2018-03-05 14:09] LABS: Percent Iron Saturation 27 % (15-50); Total Iron Binding Capacity 358 ug/dL (265-497); Transferrin 304 mg/dL (206-381)
[2018-03-05 14:33] LABS: Ferritin 26.9 ng/mL (11.1-264)
[2018-03-05 15:33] LABS: Creatinine Urine Random 138.5 mg/dL; Protein (Total) Urine Random 16 mg/dL (0-12); Protein Creatinine Ratio Urine 0.11 GRAM/24H
[2018-03-07 14:13] LABS: Parathyroid Hormone Int 36 pg/mL (14-64)
== END ==
PROVIDERS: Family Provider Physician Assistant; PCP Physician Assistant; Visit Provider Student in an Organized Health Care Education/Training Program
DX: R80.9 Proteinuria, unspecified (principal); N05.9 Unspecified nephritic syndrome with unspecified morphologic changes; D50.0 Iron deficiency anemia secondary to blood loss (chronic); D64.9 Anemia, unspecified; N25.81 Secondary hyperparathyroidism of renal origin
CPT/HCPCS: 36415; 80048; 82570; 82728; 83540; 83550; 83970; 84156; 85014; 85018

== ENCOUNTER 2018-03-13 13:00 | Outpatient (RCR) | payer OTHER, SELFPAY ==
--- NOTE | 2017-12-22 11:30 | PT.OPPOC ---
Current Diagnoses Unilateral primary osteoarthritis, left knee (12/22/17) Provider Visit Care Team Role Provider Type Monica Cook PA-C Family Provider Advanced Manager Call Center Primary Care Provider Specialty: Medical Address: [address] [place] [address], [id number] Email: [email or web address] Obinna Ch MD Attending Provider Physician Specialty: Orthopedic Surgery Address: [address] [place] [address], [id number] Email: [email or web address] Plan Of Care PT-OP-T Assessment and Plan Start: 12/23/17 09:12 Freq: Status: Active Protocol: Document 12/22/17 11:30 [facility] (Rec: 12/23/17 11:30 [facility] [id number]) Physical Therapy Assessment Rehab Potential Rehabilitation Potential Good Evaluation Complexity Number of Personal Factors/Comorbidities 1-2 Number of Body Systems Impaired 4 or More Clinical Presentation at Evaluation Evolving Impairments Impairments Activity Tolerance Balance Edema Functional Mobility Gait Pain ROM Soft Tissue Mobility Strength Goals HEP Impairment HEP Short Term Goal (STG) Pt will be indep with HEP & edu prior to sx STG Duration 4 weeks- educated this session Assessment Summary Assessment Pt presents before L TKA for edu on how to prepare as she will have surgery 12/26. Pt was fully educated and has post op PT scheduled for 1 week after sx. Physical Therapy Plan Frequency and Duration Frequency of Treatment 1x/Week Duration of Treatment 1 month Plan of Care Start Date 12/23/17 Plan of Care End Date 01/23/18 Therapeutic Interventions Therapeutic Interventions Aquatic Therapy Balance Training Gait Training Home Exercise Program Joint Mobilizations Manual Therapy Neuromuscular Re-education Patient/Caregiver Education Self-Care/Home Management Soft Tissue Mobilization Taping Therapeutic Activities Therapeutic Exercises Modalities Cold Pack/Ice Massage Electric Stimulation Hot Packs Ultrasound Next Visit Focus/Plan Next Note Type Re-Evaluation Next Visit Plan Re-assess after TKA; review HEP & work on bike & progression of ROM Plan of Care Dates Plan of Care Start Date 12/23/17 Plan of Care End Date 01/23/18 Please Sign and Return: I have reviewed this Plan of Care and certify that the skilled therapy services above are required to meet the patient?s needs. Physician Signature Date Printed Name and Credentials Clinical Instructor Signature Printed Name and Credentials
--- NOTE | 2017-12-22 11:30 | PT.OIE ---
Current Diagnoses Unilateral primary osteoarthritis, left knee (12/22/17) Past Medical History (Last Updated 12/19/17 @ 13:47 by Alison Bland RN) Adenocarcinoma of left lung (Acute ~11/2016) Asthma (Chronic) DJD (degenerative joint disease) of knee (Chronic) Gout (Chronic) Hyperlipemia (Chronic) Hypertension (Chronic) Osteoarthritis (Chronic) Past Surgical History (Last Updated 12/19/17 @ 13:48 by Alison Bland RN) History of lobectomy of lung (Acute ~12/2016) Hx of tubal ligation (Resolved) Provider Visit Care Team Role Provider Type Monica Cook PA-C Family Provider Advanced Airport Operations Officer Primary Care Provider Specialty: Medical Address: [address] [place] [address], [id number] Email: [email or web address] Obinna Ch MD Attending Provider Physician Specialty: Orthopedic Surgery Address: [address] [place] [address], [id number] Email: [email or web address] Physical Therapy Initial Evaluation PT-OP-A Visit Information Start: 12/23/17 09:12 Freq: Status: Active Protocol: Document 12/22/17 11:30 [facility] (Rec: 12/23/17 09:32 [facility] [id number]) Out-Patient Physical Therapy Visit Information Visit Information Visit Type Initial Evaluation Visit Note 1 total visit /15 Visit Start Time 11:25 Visit Stop Time 12:20 Total Visit Minutes 55 Visit Number 03/05 PT-OP-B Current Condition Start: 12/23/17 09:12 Freq: Status: Active Protocol: Document 12/22/17 11:30 [facility] (Rec: 12/23/17 09:32 [facility] [id number]) Current Condition History of Current Condition Current Complaints L >R knee pain with planned L TKA History of Current Condition Pt presents with L knee pain with planned L TKA on 12/26 and reports she plans on getting her R side after she recovers. Pt reports she has pain in standing and household mobility that dec her ability to do activity. 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 Pt has to do stairs with step to pattern and down hill walking>uphill is painful. Treatment Goals Patient/Caregiver Goals walk about 30 min outside, be able to go xmas shopping, ability to do activity without pain or worrying if the activity will cause a lot of pain. Personal Factors Other Personal Factors That May Effect Pt lives in a [facility] with no Therapy/Recovery steps to enter. She has a raised toilet with 1/2 wall for UE support, walk in shower with chair and rails. She has a FWW, 4WW and cane. PT-OP-C Subjective Start: 12/23/17 09:12 Freq: Status: Active Protocol: Document 12/22/17 11:30 [facility] (Rec: 12/23/17 09:32 [facility] [id number]) Patient Questionnaires Lower Extremity Functional Scale LEFS Score 33 LEFS Impairment 40 to 59% Impaired (Score 32- 47) OP-PT Pain Assessment Location L knee Pain Location Details L knee Intensity 8 Scale Used Numeric (1 - 10) Frequency Daily Other Pain Aggravating Factors walking, standing, household work PT-OP-G Mobility & Gait Start: 12/23/17 09:12 Freq: Status: Active Protocol: Document 12/22/17 11:30 [facility] (Rec: 12/23/17 09:32 [facility] [id number]) OP Gait Assessment Comments Gait Comments Pt amb with dec stance time on LLE with dec post depression & hip ext and lat lean to L with stance of LLE PT-OP-K Range of Motion Start: 12/23/17 09:12 Freq: Status: Active Protocol: Document 12/22/17 11:30 [facility] (Rec: 12/23/17 09:32 [facility] [id number]) Knee Goniometric Range of Motion Knee Measured in Degrees Left Patient Position Supine Flexion Active (degrees) 93 Extension Active (degrees) 10 PT-OP-M Strength Start: 12/23/17 09:12 Freq: Status: Active Protocol: Document 12/22/17 11:30 [facility] (Rec: 12/23/17 09:32 [facility] [id number]) Knee Strength Knee Manual Muscle Testing Left Extension (L3) 4 Good PT-OP-Q Treatments Start: 12/23/17 09:12 Freq: Status: Active Protocol: Document 12/22/17 11:30 [facility] (Rec: 12/23/17 09:41 [facility] [id number]) Therapeutic Exercises Supine Exercises passive ext Side left Reps/Minutes x30sec SAQ Side left Reps/Minutes 5 x 5 sec APs Supine Exercise Name APs Side bilateral Reps/Minutes 10 heel slides Supine Exercise Name heel slides Side left Reps/Minutes 5 x 5 sec quad set Supine Exercise Name quad set Side left Reps/Minutes 10 x 5 Sec SLR Supine Exercise Name SLR Side left Reps/Minutes 10 Sitting Exercises knee flex Sitting Exercise Name w/scoot fwd to inc flex Side left Reps/Minutes 10 sec hold Therapeutic Activity Therapeutic Activity stairs Comments edu step to pattern with stairs with 1 rail & cane walker/cane Comments edu on walker and cane use with step to pattern for walker Supine<>sit Comments edu how to complete with dec LE strength sit <>stand Comments edu of how to complete after sx packet edu Name edu on total knee arthoplasty packet info Comments Discussion of safety and prep for edu; edu on car transfers PT-OP-T Assessment and Plan Start: 12/23/17 09:12 Freq: Status: Active Protocol: Document 12/22/17 11:30 [facility] (Rec: 12/23/17 11:30 [facility] [id number]) Physical Therapy Assessment Rehab Potential Rehabilitation Potential Good Evaluation Complexity Number of Personal Factors/Comorbidities 1-2 Number of Body Systems Impaired 4 or More Clinical Presentation at Evaluation Evolving Impairments Impairments Activity Tolerance Balance Edema Functional Mobility Gait Pain ROM Soft Tissue Mobility Strength Goals HEP Impairment HEP Short Term Goal (STG) Pt will be indep with HEP & edu prior to sx STG Duration 4 weeks- educated this session Assessment Summary Assessment Pt presents before L TKA for edu on how to prepare as she will have surgery 12/26. Pt was fully educated and has post op PT scheduled for 1 week after sx. Physical Therapy Plan Frequency and Duration Frequency of Treatment 1x/Week Duration of Treatment 1 month Plan of Care Start Date 12/23/17 Plan of Care End Date 01/23/18 Therapeutic Interventions Therapeutic Interventions Aquatic Therapy Balance Training Gait Training Home Exercise Program Joint Mobilizations Manual Therapy Neuromuscular Re-education Patient/Caregiver Education Self-Care/Home Management Soft Tissue Mobilization Taping Therapeutic Activities Therapeutic Exercises Modalities Cold Pack/Ice Massage Electric Stimulation Hot Packs Ultrasound Next Visit Focus/Plan Next Note Type Re-Evaluation Next Visit Plan Re-assess after TKA; review HEP & work on bike & progression of ROM
--- NOTE | 2018-01-02 16:15 | PT.OTN ---
Current Diagnoses Unilateral primary osteoarthritis, left knee (01/02/18) Physical Therapy Treatment Note PT-OP-A Visit Information Start: 12/23/17 09:12 Freq: Status: Active Protocol: Document 01/02/18 13:00 [facility] (Rec: 01/02/18 13:22 [facility] [id number]) Out-Patient Physical Therapy Visit Information Visit Information Visit Type Treatment Note Visit Note 2 total visit /15 Visit Start Time 13:05 Visit Stop Time 13:55 Total Visit Minutes 50 Visit Number 04/05 PT-OP-B Current Condition Start: 12/23/17 09:12 Freq: Status: Active Protocol: Document 12/22/17 11:30 [facility] (Rec: 12/23/17 09:32 [facility] [id number]) Current Condition History of Current Condition Current Complaints L >R knee pain with planned L TKA History of Current Condition Pt presents with L knee pain with planned L TKA on 12/26 and reports she plans on getting her R side after she recovers. Pt reports she has pain in standing and household mobility that dec her ability to do activity. She she does the NUstep and treadmill for her maintenance program at [facility] but cannot walk out side d/t high level pain. Pt has to do stairs with step to pattern and down hill walking>uphill is painful. Treatment Goals Patient/Caregiver Goals walk about 30 min outside, be able to go xmas shopping, ability to do activity without pain or worrying if the activity will cause a lot of pain. Personal Factors Other Personal Factors That May Effect Pt lives in a [facility] with no Therapy/Recovery steps to enter. She has a raised toilet with 1/2 wall for UE support, walk in shower with chair and rails. She has a FWW, 4WW and cane. PT-OP-C Subjective Start: 12/23/17 09:12 Freq: Status: Active Protocol: Document 01/02/18 13:00 [facility] (Rec: 01/02/18 13:22 [facility] [id number]) OP-PT Subjective Patient Comments Patient Comments Pt reports surgery went well. Reports she has been doing her exercises. Notes knee has still been giving her pain, but she has been dec hydrocodone use d/t dreams. She uses tylenol in between but knows the hydrocodone has tylenol also so she is careful not to take too much. OP-PT Pain Assessment Location L knee Pain Location Details L knee Intensity 10 Scale Used Numeric (1 - 10) Description- Other 2-3/10 at rest; activity 7-10 Frequency Daily PT-OP-G Mobility & Gait Start: 12/23/17 09:12 Freq: Status: Active Protocol: Document 12/22/17 11:30 [facility] (Rec: 12/23/17 09:32 [facility] [id number]) OP Gait Assessment Comments Gait Comments Pt amb with dec stance time on LLE with dec post depression & hip ext and lat lean to L with stance of LLE PT-OP-K Range of Motion Start: 12/23/17 09:12 Freq: Status: Active Protocol: Document 01/02/18 13:00 [facility] (Rec: 01/02/18 13:15 [facility] [id number]) Knee Goniometric Range of Motion Knee Measured in Degrees Left Patient Position Supine Flexion Active (degrees) 63 Extension Active (degrees) 11 PT-OP-M Strength Start: 12/23/17 09:12 Freq: Status: Active Protocol: Document 01/02/18 13:00 [facility] (Rec: 01/02/18 13:14 [facility] [id number]) Hip Strength Hip Manual Muscle Testing Left Flexion (L2) 4 Good Extension (S1) 4 Good Abduction 4- Good- Adduction 3- Fair- External Rotation 3+ Fair+ Internal Rotation 4 Good Comments pain ER Knee Strength Knee Manual Muscle Testing Left Flexion (S2) 4+ Good+ Extension (L3) 4- Good- Comments pain ext PT-OP-Q Treatments Start: 12/23/17 09:12 Freq: Status: Active Protocol: Document 01/02/18 13:00 ML (Rec: 01/02/18 13:45 ML [id number]) Cardio Equipment Recumbent Elliptical (TUTORize) Duration (Minutes) 10 Resistance 1 Seat Position 4&5 Therapeutic Exercises Supine Exercises tennis ball Supine Exercise Name soft tissue mobility Side left Equipment Used tennis ball Comments SI region L glute/piriformis stretch Supine Exercise Name stretch Side left Comments cues for direction to pull knee to get both stretches SAQ Side left Reps/Minutes 5 x 5 sec APs Supine Exercise Name APs Side bilateral Reps/Minutes 6 heel slides Supine Exercise Name heel slides Side left Reps/Minutes 5 x 5 sec; review quad set Supine Exercise Name quad set Side left Reps/Minutes 6 x 5 Sec; review SLR Supine Exercise Name SLR Side left Reps/Minutes 6; review PT-OP-R Modalities Start: 12/23/17 09:12 Freq: Status: Active Protocol: Document 01/02/18 13:00 [facility] (Rec: 01/02/18 13:22 [facility] [id number]) Hot Pack/Cold Pack Treatment Cold Pack Location L knee Patient Position Supine Treatment Duration (minutes) 10 PT-OP-T Assessment and Plan Start: 12/23/17 09:12 Freq: Status: Active Protocol: Document 01/02/18 13:00 ML (Rec: 01/02/18 13:45 ML [id number]) Physical Therapy Assessment Goals endurance Impairment dec endurance Fpc Goal (LTG) Pt will be able to be on her feet to prepare a big meal ( multiple hours of preparation) . LTG Duration 03/04/18 activity tolerance Impairment activity tolerance Short Term Goal (STG) Pt will be able to get from the car to the entrance of the grocery store with no more than 2-3/10 pain. STG Duration 02/01/18 Tanker Serviceman Goal (LTG) Pt will be able to go for a 20 minute walk with no more than 2-3/10 pain. LTG Duration 03/04/18 HEP Impairment HEP Short Term Goal (STG) Pt will be indep with HEP & edu prior to sx STG Duration 4 weeks- educated this session Assessment Summary Assessment Pt reported to PT after surgery ambulating appropriately with her FWW that was fit for her height. Pt reports doing her exercises thoroughly and with accurate set up and mechanics. Pt expressed further goals for therapy and was given a few exercises to take home in order to address her posterior pain on L hip/SI. Physical Therapy Plan Frequency and Duration Frequency of Treatment 1x/Week Duration of Treatment 1 month Plan of Care Start Date 12/23/17 Plan of Care End Date 01/23/18 Next Visit Focus/Plan Next Note Type Treatment Note
--- NOTE | 2018-01-05 16:08 | PT.OTN ---
Current Diagnoses Unilateral primary osteoarthritis, left knee (01/05/18) Physical Therapy Treatment Note PT-OP-A Visit Information Start: 12/23/17 09:12 Freq: Status: Active Protocol: Document 01/05/18 13:54 ML (Rec: 01/05/18 14:33 ML [id number]) Out-Patient Physical Therapy Visit Information Visit Information Visit Type Treatment Note Visit Note 3 total visit /15 Visit Start Time 13:50 Visit Stop Time 14:40 Total Visit Minutes 50 Visit Number 05/03 PT-OP-B Current Condition Start: 12/23/17 09:12 Freq: Status: Active Protocol: Document 12/22/17 11:30 [facility] (Rec: 12/23/17 09:32 [facility] [id number]) Current Condition History of Current Condition Current Complaints L >R knee pain with planned L TKA History of Current Condition Pt presents with L knee pain with planned L TKA on 12/26 and reports she plans on getting her R side after she recovers. Pt reports she has pain in standing and household mobility that dec her ability to do activity. She she does the NUstep and treadmill for her maintenance program at [facility] but cannot walk out side d/t high level pain. Pt has to do stairs with step to pattern and down hill walking>uphill is painful. Treatment Goals Patient/Caregiver Goals walk about 30 min outside, be able to go xmas shopping, ability to do activity without pain or worrying if the activity will cause a lot of pain. Personal Factors Other Personal Factors That May Effect Pt lives in a [facility] with no Therapy/Recovery steps to enter. She has a raised toilet with 1/2 wall for UE support, walk in shower with chair and rails. She has a FWW, 4WW and cane. PT-OP-C Subjective Start: 12/23/17 09:12 Freq: Status: Active Protocol: Document 01/05/18 13:54 ML (Rec: 01/05/18 14:33 ML [id number]) OP-PT Subjective Patient Comments Patient Comments Pt reports that her pain continues and she does not like to take the pain medications because they give her horrible dreams. PT-OP-G Mobility & Gait Start: 12/23/17 09:12 Freq: Status: Active Protocol: Document 12/22/17 11:30 [facility] (Rec: 12/23/17 09:32 [facility] [id number]) OP Gait Assessment Comments Gait Comments Pt amb with dec stance time on LLE with dec post depression & hip ext and lat lean to L with stance of LLE PT-OP-K Range of Motion Start: 12/23/17 09:12 Freq: Status: Active Protocol: Document 01/02/18 13:00 [facility] (Rec: 01/02/18 13:15 [facility] [id number]) Knee Goniometric Range of Motion Knee Measured in Degrees Left Patient Position Supine Flexion Active (degrees) 63 Extension Active (degrees) 11 PT-OP-M Strength Start: 12/23/17 09:12 Freq: Status: Active Protocol: Document 01/02/18 13:00 [facility] (Rec: 01/02/18 13:14 [facility] [id number]) Hip Strength Hip Manual Muscle Testing Left Flexion (L2) 4 Good Extension (S1) 4 Good Abduction 4- Good- Adduction 3- Fair- External Rotation 3+ Fair+ Internal Rotation 4 Good Comments pain ER Knee Strength Knee Manual Muscle Testing Left Flexion (S2) 4+ Good+ Extension (L3) 4- Good- Comments pain ext PT-OP-Q Treatments Start: 12/23/17 09:12 Freq: Status: Active Protocol: Document 01/05/18 13:54 ML (Rec: 01/05/18 14:33 ML [id number]) Cardio Equipment Recumbent Elliptical (Quora) Duration (Minutes) 6 Resistance 3 Seat Position 6 Therapeutic Exercises Supine Exercises malathi stretch Supine Exercise Name malathi test stretch Comments HEP Sidelying Exercises abduction Sidelying Exercise Name hip abd Comments bilat, no resistance clamshells Comments bilat; no resistance Sitting Exercises active knee flex Sitting Exercise Name bilat Resistance lvl 1 Manual Therapy Treatment Soft Tissue Mobilization IT band L Body Location L Mobilization Type Myofascial Release Strumming quad L Body Location VMO and rectus femoris Mobilization Type Myofascial Release Rolling Sustained Pressure Comments w/active DF/PF hamstring L Body Location L Mobilization Type Myofascial Release Rolling Sustained Pressure PT-OP-R Modalities Start: 12/23/17 09:12 Freq: Status: Active Protocol: Document 01/05/18 13:54 ML (Rec: 01/05/18 14:33 ML [id number]) Hot Pack/Cold Pack Treatment Cold Pack Location L knee Patient Position Supine Treatment Duration (minutes) 10 Comments front and back PT-OP-T Assessment and Plan Start: 12/23/17 09:12 Freq: Status: Active Protocol: Document 01/05/18 13:54 ML (Rec: 01/05/18 14:33 ML [id number]) Physical Therapy Assessment Goals endurance Impairment dec endurance Die Maker Bench Stamping Goal (LTG) Pt will be able to be on her feet to prepare a big meal ( multiple hours of preparation) . LTG Duration 03/04/18 activity tolerance Impairment activity tolerance Short Term Goal (STG) Pt will be able to get from the car to the entrance of the grocery store with no more than 2-3/10 pain. STG Duration 02/01/18 Usp Goal (LTG) Pt will be able to go for a 20 minute walk with no more than 2-3/10 pain. LTG Duration 03/04/18 HEP Impairment HEP Short Term Goal (STG) Pt will be indep with HEP & edu prior to sx STG Duration 4 weeks- educated this session Assessment Summary Assessment Pt cont to report with pain. Pt also reports that exercises are going well at home, but the stretching ones definitely require effort. Pt was able to demonstrate good glute strength today, more on her uninvolved side than her involved. Pt was unable to do the bike today, but will progress with more ROM. Physical Therapy Plan Frequency and Duration Frequency of Treatment 1x/Week Duration of Treatment 1 month Plan of Care Start Date 12/23/17 Plan of Care End Date 01/23/18 Next Visit Focus/Plan Next Note Type Treatment Note Next Visit Plan 4WW, biodex stepper, bike, progress exercises (seated LAQ w/wt, calf raises, hamstring curls, review HEP, etc), soft tissue, ROM
--- NOTE | 2018-01-09 16:07 | PT.OTN ---
Current Diagnoses Unilateral primary osteoarthritis, left knee (01/09/18) Physical Therapy Treatment Note PT-OP-A Visit Information Start: 12/23/17 09:12 Freq: Status: Active Protocol: Document 01/09/18 13:08 ML (Rec: 01/09/18 13:46 ML [id number]) Out-Patient Physical Therapy Visit Information Visit Information Visit Type Treatment Note Visit Note 4 total visit /15 Visit Start Time 13:02 Visit Stop Time 13:52 Total Visit Minutes 50 Visit Number 06/03 PT-OP-B Current Condition Start: 12/23/17 09:12 Freq: Status: Active Protocol: Document 12/22/17 11:30 [facility] (Rec: 12/23/17 09:32 [facility] [id number]) Current Condition History of Current Condition Current Complaints L >R knee pain with planned L TKA History of Current Condition Pt presents with L knee pain with planned L TKA on 12/26 and reports she plans on getting her R side after she recovers. Pt reports she has pain in standing and household mobility that dec her ability to do activity. She she does the NUstep and treadmill for her maintenance program at [facility] but cannot walk out side d/t high level pain. Pt has to do stairs with step to pattern and down hill walking>uphill is painful. Treatment Goals Patient/Caregiver Goals walk about 30 min outside, be able to go xmas shopping, ability to do activity without pain or worrying if the activity will cause a lot of pain. Personal Factors Other Personal Factors That May Effect Pt lives in a [facility] with no Therapy/Recovery steps to enter. She has a raised toilet with 1/2 wall for UE support, walk in shower with chair and rails. She has a FWW, 4WW and cane. PT-OP-C Subjective Start: 12/23/17 09:12 Freq: Status: Active Protocol: Document 01/09/18 13:08 ML (Rec: 01/09/18 13:46 ML [id number]) OP-PT Subjective Patient Comments Patient Comments Pt reports that she doesn't use her walker much at home because she doesn't note a huge need for it with small distances. But that her pain is not really letting up. She also indicates that she ices for 15min, 4x a day. PT-OP-G Mobility & Gait Start: 12/23/17 09:12 Freq: Status: Active Protocol: Document 12/22/17 11:30 [facility] (Rec: 12/23/17 09:32 [facility] [id number]) OP Gait Assessment Comments Gait Comments Pt amb with dec stance time on LLE with dec post depression & hip ext and lat lean to L with stance of LLE PT-OP-K Range of Motion Start: 12/23/17 09:12 Freq: Status: Active Protocol: Document 01/02/18 13:00 [facility] (Rec: 01/02/18 13:15 [facility] [id number]) Knee Goniometric Range of Motion Knee Measured in Degrees Left Patient Position Supine Flexion Active (degrees) 63 Extension Active (degrees) 11 PT-OP-M Strength Start: 12/23/17 09:12 Freq: Status: Active Protocol: Document 01/02/18 13:00 [facility] (Rec: 01/02/18 13:14 [facility] [id number]) Hip Strength Hip Manual Muscle Testing Left Flexion (L2) 4 Good Extension (S1) 4 Good Abduction 4- Good- Adduction 3- Fair- External Rotation 3+ Fair+ Internal Rotation 4 Good Comments pain ER Knee Strength Knee Manual Muscle Testing Left Flexion (S2) 4+ Good+ Extension (L3) 4- Good- Comments pain ext PT-OP-Q Treatments Start: 12/23/17 09:12 Freq: Status: Active Protocol: Document 01/09/18 13:08 ML (Rec: 01/09/18 13:46 ML [id number]) Cardio Equipment Recumbent Elliptical (Imagekind) Duration (Minutes) 8 Resistance 3 Seat Position 5 Therapeutic Exercises Supine Exercises bridge Supine Exercise Name bridge Side bilateral Comments HEP malathi stretch Supine Exercise Name malathi test stretch Comments HEP heel slides Supine Exercise Name heel slides Side left Reps/Minutes 5 x 5 sec; review; added belt Sitting Exercises active knee flex Sitting Exercise Name bilat Resistance lvl 1 and 2 Comments HEP lvl 2 Gait Training Gait Activity SPC gait training Description SPC gait training Device Used SPC Comments cues for trying to have knee flexion through gait Manual Therapy Treatment Soft Tissue Mobilization quad L Body Location VMO, VLO, and rectus femoris Mobilization Type Myofascial Release Rolling Sustained Pressure PT-OP-R Modalities Start: 10/30/18 09:12 Freq: Status: Active Protocol: Document 01/09/18 13:08 ML (Rec: 01/09/18 14:35 ML [id number]) Hot Pack/Cold Pack Treatment Cold Pack Location L knee Patient Position Supine Treatment Duration (minutes) 10 Comments front and back PT-OP-T Assessment and Plan Start: 12/23/17 09:12 Freq: Status: Active Protocol: Document 01/09/18 13:08 ML (Rec: 01/09/18 13:46 ML [id number]) Physical Therapy Assessment Goals endurance Impairment dec endurance Carport Erector Goal (LTG) Pt will be able to be on her feet to prepare a big meal ( multiple hours of preparation) . LTG Duration 03/04/18 activity tolerance Impairment activity tolerance Short Term Goal (STG) Pt will be able to get from the car to the entrance of the grocery store with no more than 2-3/10 pain. STG Duration 02/01/18 Carport Erector Goal (LTG) Pt will be able to go for a 20 minute walk with no more than 2-3/10 pain. LTG Duration 03/04/18 HEP Impairment HEP Short Term Goal (STG) Pt will be indep with HEP & edu prior to sx STG Duration 4 weeks- educated this session Assessment Summary Assessment Pt is still frustrated with the inc pain, but shows improvement in her gait through WBing through the involved LE well and ability to use a SPC without much correction. Pt instructed that she can use SPC, but to have walker available for getting up at night or times feeling tired. Pt continues to have muscular tightness through her quad which was addressed manually. Pt mentioned that she has difficulty with heel slides and was instructed to use the belt to assist. Pt was given knee flexion exercise to improve those heel slides as well. Pt's other new exercises from last treatment were reviewed and corrected as needed. Physical Therapy Plan Frequency and Duration Frequency of Treatment 1x/Week Duration of Treatment 1 month Plan of Care Start Date 12/23/17 Plan of Care End Date 01/23/18 Next Visit Focus/Plan Next Note Type Treatment Note Next Visit Plan biodex stepper, bike, progress exercises (seated LAQ w/wt, calf raises, review HEP of t test, knee flex), soft tissue, ROM
--- NOTE | 2018-01-12 15:39 | PT.OTN ---
Current Diagnoses Unilateral primary osteoarthritis, left knee (01/12/18) Physical Therapy Treatment Note PT-OP-A Visit Information Start: 12/23/17 09:12 Freq: Status: Active Protocol: Document 01/12/18 14:43 ML (Rec: 01/12/18 14:53 ML [email or web address]) Out-Patient Physical Therapy Visit Information Visit Information Visit Type Treatment Note Visit Note 5 total visit /15 Visit Start Time 13:45 Visit Stop Time 14:30 Total Visit Minutes 45 Visit Number / PT-OP-B Current Condition Start: 12/23/17 09:12 Freq: Status: Active Protocol: Document 12/22/17 11:30 [facility] (Rec: 12/23/17 09:32 [facility] [id number]) Current Condition History of Current Condition Current Complaints L >R knee pain with planned L TKA History of Current Condition Pt presents with L knee pain with planned L TKA on 12/26 and reports she plans on getting her R side after she recovers. Pt reports she has pain in standing and household mobility that dec her ability to do activity. She she does the NUstep and treadmill for her maintenance program at [facility] but cannot walk out side d/t high level pain. Pt has to do stairs with step to pattern and down hill walking>uphill is painful. Treatment Goals Patient/Caregiver Goals walk about 30 min outside, be able to go xmas shopping, ability to do activity without pain or worrying if the activity will cause a lot of pain. Personal Factors Other Personal Factors That May Effect Pt lives in a [facility] with no Therapy/Recovery steps to enter. She has a raised toilet with 1/2 wall for UE support, walk in shower with chair and rails. She has a FWW, 4WW and cane. PT-OP-C Subjective Start: 12/23/17 09:12 Freq: Status: Active Protocol: Document 01/12/18 14:43 ML (Rec: 01/12/18 14:53 ML [id number]) OP-PT Subjective Patient Comments Patient Comments Pt reports that he appointments Friday went well and that they indicated things looked good and she's right on track. PT-OP-G Mobility & Gait Start: 12/23/17 09:12 Freq: Status: Active Protocol: Document 12/22/17 11:30 [facility] (Rec: 12/23/17 09:32 [facility] [id number]) OP Gait Assessment Comments Gait Comments Pt amb with dec stance time on LLE with dec post depression & hip ext and lat lean to L with stance of LLE PT-OP-K Range of Motion Start: 12/23/17 09:12 Freq: Status: Active Protocol: Document 01/02/18 13:00 [facility] (Rec: 01/02/18 13:15 [facility] [id number]) Knee Goniometric Range of Motion Knee Measured in Degrees Left Patient Position Supine Flexion Active (degrees) 63 Extension Active (degrees) 11 PT-OP-M Strength Start: 12/23/17 09:12 Freq: Status: Active Protocol: Document 01/02/18 13:00 [facility] (Rec: 01/02/18 13:14 [facility] [id number]) Hip Strength Hip Manual Muscle Testing Left Flexion (L2) 4 Good Extension (S1) 4 Good Abduction 4- Good- Adduction 3- Fair- External Rotation 3+ Fair+ Internal Rotation 4 Good Comments pain ER Knee Strength Knee Manual Muscle Testing Left Flexion (S2) 4+ Good+ Extension (L3) 4- Good- Comments pain ext PT-OP-Q Treatments Start: 12/23/17 09:12 Freq: Status: Active Protocol: Document 01/12/18 14:43 ML (Rec: 01/12/18 14:53 ML [id number]) Cardio Equipment Recumbent Elliptical (Biodex) Duration (Minutes) 8 Resistance 3 Seat Position 5 Recumbent Bicycle Duration (Minutes) 1 Resistance 1 Seat Position 1 Other for ROM Therapeutic Exercises Supine Exercises malathi stretch Supine Exercise Name malathi test stretch Reps/Minutes reviewed for 1/2 hold time bilat Comments ; discussed getting up and changing legs (always keep one knee flexed/roll) Standing Exercises calf raises Standing Exercise Name calf raises Side bilateral Resistance none Equipment Used bar Reps/Minutes 10x (HEP 10x2) mini squats Standing Exercise Name mini squats Side bilateral Resistance none Equipment Used bar w/chair behind Reps/Minutes 15 Comments HEP (10x2) side step Standing Exercise Name side step Side bilateral Resistance yellow band Equipment Used bar Reps/Minutes 20' x2 each leg Manual Therapy Treatment Soft Tissue Mobilization quad L Body Location VLO Mobilization Type Myofascial Release Rolling Sustained Pressure Comments w/active isometric knee ext from a shortened position hamstring L Body Location L Mobilization Type Myofascial Release Rolling Sustained Pressure Comments w/active isometric knee flex from a shortened position Manual Techniques passive knee ext Body Location femur Body Position Supine Reps/Duration 2x Comments press toward table; 45 sec, rest in flex, 30 sec PT-OP-R Modalities Start: 12/23/17 09:12 Freq: Status: Active Protocol: Document 01/09/18 13:08 ML (Rec: 01/09/18 14:35 ML [id number]) Hot Pack/Cold Pack Treatment Cold Pack Location L knee Patient Position Supine Treatment Duration (minutes) 10 Comments front and back PT-OP-T Assessment and Plan Start: 12/23/17 09:12 Freq: Status: Active Protocol: Document 01/12/18 14:43 ML (Rec: 01/12/18 14:53 ML [id number]) Physical Therapy Assessment Goals endurance Impairment dec endurance Pulverizer Feeder Goal (LTG) Pt will be able to be on her feet to prepare a big meal ( multiple hours of preparation) . LTG Duration 03/04/18 activity tolerance Impairment activity tolerance Short Term Goal (STG) Pt will be able to get from the car to the entrance of the grocery store with no more than 2-3/10 pain. STG Duration 02/01/18 Care Home Goal (LTG) Pt will be able to go for a 20 minute walk with no more than 2-3/10 pain. LTG Duration 03/04/18 HEP Impairment HEP Short Term Goal (STG) Pt will be indep with HEP & edu prior to sx STG Duration 4 weeks- educated this session Assessment Summary Assessment Pt mentioned that she went to the store for an hour with her 4WW and it went well, but was pretty tired after. Pt mentioned not really using an AD at home, and was instructed to use her cane or 4WW. Pt's ROM improved significantly today through manual mobs, assisted with CR. Pt was also able to achieve a full revolution on the recumbent bike, but after a minute was pretty sore, so exercise was terminated. Pt was able to achieve appropriate mechanics for all activities and her HEP was progressed. Physical Therapy Plan Frequency and Duration Frequency of Treatment 1x/Week Duration of Treatment 1 month Plan of Care Start Date 12/23/17 Plan of Care End Date 01/23/18 Next Visit Focus/Plan Next Note Type Treatment Note Next Visit Plan biodex stepper, bike, progress exercises (seated LAQ w/wt, review HEP of calf raises and mini squat), soft tissue, ROM
--- NOTE | 2018-01-14 14:21 | PT.OTN ---
Current Diagnoses Unilateral primary osteoarthritis, left knee (01/14/18) Physical Therapy Treatment Note PT-OP-A Visit Information Start: 12/23/17 09:12 Freq: Status: Active Protocol: Document 01/14/18 13:05 ML (Rec: 01/14/18 13:21 ML [id number]) Out-Patient Physical Therapy Visit Information Visit Information Visit Type Treatment Note Visit Note 6 total visit /15 Visit Start Time 13:02 Visit Stop Time 13:41 Total Visit Minutes 39 Visit Number 08/03 PT-OP-B Current Condition Start: 12/23/17 09:12 Freq: Status: Active Protocol: Document 12/22/17 11:30 [facility] (Rec: 12/23/17 09:32 [facility] [id number]) Current Condition History of Current Condition Current Complaints L >R knee pain with planned L TKA History of Current Condition Pt presents with L knee pain with planned L TKA on 12/26 and reports she plans on getting her R side after she recovers. Pt reports she has pain in standing and household mobility that dec her ability to do activity. She she does the NUstep and treadmill for her maintenance program at [facility] but cannot walk out side d/t high level pain. Pt has to do stairs with step to pattern and down hill walking>uphill is painful. Treatment Goals Patient/Caregiver Goals walk about 30 min outside, be able to go xmas shopping, ability to do activity without pain or worrying if the activity will cause a lot of pain. Personal Factors Other Personal Factors That May Effect Pt lives in a [facility] with no Therapy/Recovery steps to enter. She has a raised toilet with 1/2 wall for UE support, walk in shower with chair and rails. She has a FWW, 4WW and cane. PT-OP-C Subjective Start: 12/23/17 09:12 Freq: Status: Active Protocol: Document 01/14/18 13:05 ML (Rec: 01/14/18 13:21 ML [id number]) OP-PT Subjective Patient Comments Patient Comments Pt notes she has now been using her cane at home when she isn't using her walker as instructed. PT-OP-G Mobility & Gait Start: 12/23/17 09:12 Freq: Status: Active Protocol: Document 12/22/17 11:30 [facility] (Rec: 12/23/17 09:32 [facility] [id number]) OP Gait Assessment Comments Gait Comments Pt amb with dec stance time on LLE with dec post depression & hip ext and lat lean to L with stance of LLE PT-OP-K Range of Motion Start: 12/23/17 09:12 Freq: Status: Active Protocol: Document 01/02/18 13:00 [facility] (Rec: 01/02/18 13:15 [facility] [id number]) Knee Goniometric Range of Motion Knee Measured in Degrees Left Patient Position Supine Flexion Active (degrees) 63 Extension Active (degrees) 11 PT-OP-M Strength Start: 12/23/17 09:12 Freq: Status: Active Protocol: Document 01/02/18 13:00 [facility] (Rec: 01/02/18 13:14 [facility] [id number]) Hip Strength Hip Manual Muscle Testing Left Flexion (L2) 4 Good Extension (S1) 4 Good Abduction 4- Good- Adduction 3- Fair- External Rotation 3+ Fair+ Internal Rotation 4 Good Comments pain ER Knee Strength Knee Manual Muscle Testing Left Flexion (S2) 4+ Good+ Extension (L3) 4- Good- Comments pain ext PT-OP-Q Treatments Start: 12/23/17 09:12 Freq: Status: Active Protocol: Document 01/14/18 13:05 ML (Rec: 01/14/18 13:21 ML [id number]) Cardio Equipment Recumbent Elliptical (Biodex) Duration (Minutes) 8 Resistance 3 Seat Position 5 Recumbent Bicycle Duration (Minutes) 2 Resistance 1 Seat Position 1 Other for ROM Gym Equipment Shuttle Recovery bilat squat Resistance 75 Reps/Time 2x15 unilat squat Details L & R Resistance 50 R; 25 L Reps/Time R2x12; L1x15 Therapeutic Exercises Standing Exercises calf raises Standing Exercise Name calf raises Side bilateral Resistance none Equipment Used bar Reps/Minutes just reviewed 5-8x mini squats Standing Exercise Name mini squats Side bilateral Resistance none Equipment Used bar w/chair behind Reps/Minutes just reviewed 5-8x Manual Therapy Treatment Soft Tissue Mobilization quad L Body Location VMO Mobilization Type Myofascial Release Rolling Sustained Pressure Comments w/active isometric knee ext from a shortened position Joint Mobilizations patella Joint patella Direction inf, sup, and med Comments L PT-OP-R Modalities Start: 12/23/17 09:12 Freq: Status: Active Protocol: Document 01/09/18 13:08 ML (Rec: 01/09/18 14:35 ML [id number]) Hot Pack/Cold Pack Treatment Cold Pack Location L knee Patient Position Supine Treatment Duration (minutes) 10 Comments front and back PT-OP-T Assessment and Plan Start: 12/23/17 09:12 Freq: Status: Active Protocol: Document 01/14/18 13:05 ML (Rec: 01/14/18 13:21 ML [id number]) Physical Therapy Assessment Goals endurance Impairment dec endurance Usp Goal (LTG) Pt will be able to be on her feet to prepare a big meal ( multiple hours of preparation) . LTG Duration 03/04/18 activity tolerance Impairment activity tolerance Short Term Goal (STG) Pt will be able to get from the car to the entrance of the grocery store with no more than 2-3/10 pain. STG Duration 02/01/18 Pc Maintenance Technician Goal (LTG) Pt will be able to go for a 20 minute walk with no more than 2-3/10 pain. LTG Duration 03/04/18 HEP Impairment HEP Short Term Goal (STG) Pt will be indep with HEP & edu prior to sx STG Duration 4 weeks- educated this session Assessment Summary Assessment Pt reported that update HEP was going well, and was reviewed today demonstrating correct form. Pt was cued to use less UE support as able. Pt was able to also work on strengthening for functional activities through the shuttle recovery and improved her tolerance and ROM on the bike today. Pt's patella gliding restrictions were minimal, but her VMO still showed significant tightness which were both addressed manually. Physical Therapy Plan Frequency and Duration Frequency of Treatment 1x/Week Duration of Treatment 1 month Plan of Care Start Date 12/23/17 Plan of Care End Date 01/23/18 Next Visit Focus/Plan Next Note Type Treatment Note Next Visit Plan biodex stepper, bike, progress exercises, shuttle recovery, soft tissue, ROM
--- NOTE | 2018-01-19 15:56 | PT.OTN ---
Current Diagnoses Unilateral primary osteoarthritis, left knee (01/19/18) Physical Therapy Treatment Note PT-OP-A Visit Information Start: 12/23/17 09:12 Freq: Status: Active Protocol: Document 01/19/18 13:50 ML (Rec: 01/19/18 13:56 ML [id number]) Out-Patient Physical Therapy Visit Information Visit Information Visit Type Progress Note Visit Start Time 13:46 Visit Stop Time 14:36 Total Visit Minutes 50 Visit Number 7/10 Number of CONSERVATOR [employer]IFACTS Visits 0 PT-OP-B Current Condition Start: 12/23/17 09:12 Freq: Status: Active Protocol: Document 12/22/17 11:30 [facility] (Rec: 12/23/17 09:32 LR [id number]) Current Condition History of Current Condition Current Complaints L >R knee pain with planned L TKA History of Current Condition Pt presents with L knee pain with planned L TKA on 12/26 and reports she plans on getting her R side after she recovers. Pt reports she has pain in standing and household mobility that dec her ability to do activity. She she does the NUstep and treadmill for her maintenance program at [facility] but cannot walk out side d/t high level pain. Pt has to do stairs with step to pattern and down hill walking>uphill is painful. Treatment Goals Patient/Caregiver Goals walk about 30 min outside, be able to go xmas shopping, ability to do activity without pain or worrying if the activity will cause a lot of pain. Personal Factors Other Personal Factors That May Effect Pt lives in a [facility] with no Therapy/Recovery steps to enter. She has a raised toilet with 1/2 wall for UE support, walk in shower with chair and rails. She has a FWW, 4WW and cane. PT-OP-C Subjective Start: 12/23/17 09:12 Freq: Status: Active Protocol: Document 01/19/18 13:50 ML (Rec: 01/19/18 13:56 ML [id number]) OP-PT Subjective Patient Comments Patient Comments Pt notes that using her hurricane instead of her walker has been going well. PT-OP-G Mobility & Gait Start: 12/23/17 09:12 Freq: Status: Active Protocol: Document 12/22/17 11:30 LR (Rec: 12/23/17 09:32 [facility] [id number]) OP Gait Assessment Comments Gait Comments Pt amb with dec stance time on LLE with dec post depression & hip ext and lat lean to L with stance of LLE PT-OP-K Range of Motion Start: 12/23/17 09:12 Freq: Status: Active Protocol: Document 01/19/18 13:50 ML (Rec: 01/19/18 14:12 ML [id number]) Knee Goniometric Range of Motion Knee Measured in Degrees Left Patient Position Supine Flexion Active (degrees) 102 Extension Active (degrees) 6 PT-OP-M Strength Start: 12/23/17 09:12 Freq: Status: Active Protocol: Document 01/19/18 13:50 ML (Rec: 01/19/18 14:12 ML [id number]) Hip Strength Hip Manual Muscle Testing Left Flexion (L2) 4 Good Extension (S1) 4 Good Abduction 4+ Good+ Adduction 4 Good External Rotation 3+ Fair+ Internal Rotation 4+ Good+ Comments pain ER; adduction limited in range to test amount of give Knee Strength Knee Manual Muscle Testing Left Flexion (S2) 4+ Good+ Extension (L3) 4+ Good+ PT-OP-Q Treatments Start: 12/23/17 09:12 Freq: Status: Active Protocol: Document 01/19/18 13:50 ML (Rec: 01/19/18 13:56 ML [id number]) Cardio Equipment Recumbent Elliptical (BiodPlayJam) Duration (Minutes) 8 Resistance 3 Seat Position 5 Recumbent Bicycle Duration (Minutes) 2 Resistance 1 Seat Position 1 Other for ROM Gym Equipment Shuttle Recovery bilat squat Resistance 75 Reps/Time 1x15 unilat squat Details L & R Resistance 50 R; 25 L Reps/Time R1x15; L1x15 Manual Therapy Treatment Soft Tissue Mobilization adductors Body Location R adductors Mobilization Type Myofascial Release Sustained Pressure Intensity/Depth Moderate Body Position Hooklying Comments w/DF&PF active; modified with pillow under L PT-OP-R Modalities Start: 12/23/17 09:12 Freq: Status: Active Protocol: Document 01/19/18 13:50 ML (Rec: 01/19/18 14:12 ML [id number]) Hot Pack/Cold Pack Treatment Cold Pack Location L knee Patient Position Supine Treatment Duration (minutes) 10 Comments front and back PT-OP-T Assessment and Plan Start: 12/23/17 09:12 Freq: Status: Active Protocol: Document 01/19/18 13:50 ML (Rec: 01/19/18 13:56 ML [id number]) Physical Therapy Assessment Goals endurance Impairment dec endurance Longterm Goal (LTG) Pt will be able to be on her feet to prepare a big meal ( multiple hours of preparation) . LTG Duration 03/04/18 - progressing (1 hour) activity tolerance Impairment activity tolerance Short Term Goal (STG) Pt will be able to get from the car to the entrance of the grocery store with no more than 2-3/10 pain. STG Duration 02/01/18 - progressing (5/10 from a 09/02) Unit Manager [employer] Goal (LTG) Pt will be able to go for a 20 minute walk with no more than 2-3/10 pain. LTG Duration 03/04/18 HEP Impairment HEP Short Term Goal (STG) Pt will be indep with HEP & edu prior to sx STG Duration 4 weeks- achieved Assessment Summary Assessment Pt reported to PT still in pain and inquired about calling her doctor for pain medication refill. Regardless, the pt's pain has dec through activity and at rest as she reports dec pain through being on her feet or ambulation. Pt has also inc her ROM for both flex and ext, and overall has inc strength. Pt continues to be challenged for her ROM through the bike and the leg press. Pt's soft tissue restrictions of her adductors were addressed manually. Physical Therapy Plan Frequency and Duration Frequency of Treatment 1-2x/Week Duration of Treatment 1 month Plan of Care Start Date 01/19/18 Plan of Care End Date 02/18/18 Therapeutic Interventions Therapeutic Interventions Aquatic Therapy Balance Training Coordination Training Gait Training Home Exercise Program Joint Mobilizations Manual Therapy Neuromuscular Re-education Patient/Caregiver Education Self-Care/Home Management Soft Tissue Mobilization Taping Therapeutic Activities Therapeutic Exercises Modalities Cold Pack/Ice Massage Electric Stimulation Hot Packs Iontophoresis Ultrasound Next Visit Focus/Plan Next Note Type Treatment Note Next Visit Plan biodex stepper, bike, progress exercises, shuttle recovery, soft tissue, ROM
--- NOTE | 2018-01-19 18:05 | PT.OPPOC ---
Current Diagnoses Unilateral primary osteoarthritis, left knee (02/06/18) Provider Visit Care Team Role Provider Type Monica Cook PA-C Family Provider Advanced Plate Mill Hand Primary Care Provider Specialty: Medical Address: [address] [place] [address], [id number] Email: [email or web address] Obinna Ch MD Attending Provider Physician Specialty: Orthopedic Surgery Address: [address] [place] [address], [id number] Email: [email or web address] Plan Of Care PT-OP-T Assessment and Plan Start: 12/23/17 09:12 Freq: Status: Active Protocol: Document 02/03/18 13:03 [facility] (Rec: 02/03/18 13:45 [facility] [id number]) Physical Therapy Assessment Goals endurance Impairment dec endurance Shelter Goal (LTG) Pt will be able to be on her feet to prepare a big meal ( multiple hours of preparation) . LTG Duration 03/04/18 - progressing (1 hour) activity tolerance Impairment activity tolerance Short Term Goal (STG) Pt will be able to get from the car to the entrance of the grocery store with no more than 2-3/10 pain. STG Duration 02/01/18 - progressing (5/10 from a 7/10) Shelter Goal (LTG) Pt will be able to go for a 20 minute walk with no more than 2-3/10 pain. LTG Duration 03/04/18 HEP Impairment HEP Short Term Goal (STG) Pt will be indep with HEP & edu prior to sx STG Duration 4 weeks- achieved Assessment Summary Assessment pain and inquired about calling her doctor for pain medication refill. Regardless, the pt's pain has dec through activity and at rest as she reports dec pain through being on her feet or ambulation. Pt has also inc her ROM for both flex and ext, and overall has inc strength. Pt continues to be challenged for her ROM through the bike and the leg press. Pt's soft tissue restrictions of her adductors were addressed manually. Physical Therapy Plan Physical Therapy Plan Frequency and Duration Frequency of Treatment 1-2x/Week Duration of Treatment 1 month Plan of Care Start Date 01/19/18 Plan of Care End Date 02/18/18 Next Visit Focus/Plan Next Note Type Treatment Note Next Visit Plan Advance ROM, focus on glute strength & quad strength Plan of Care Dates Plan of Care Start Date 01/19/18 Plan of Care End Date 02/18/18 Please Sign and Return: I have reviewed this Plan of Care and certify that the skilled therapy services above are required to meet the patient?s needs. Physician Signature Date Printed Name and Credentials Clinical Instructor Signature Printed Name and Credentials
--- NOTE | 2018-01-23 16:00 | PT.OTN ---
Current Diagnoses Unilateral primary osteoarthritis, left knee (01/23/18) Physical Therapy Treatment Note PT-OP-A Visit Information Start: 12/23/17 09:12 Freq: Status: Active Protocol: Document 01/23/18 13:10 ML (Rec: 01/23/18 13:45 ML [id number]) Out-Patient Physical Therapy Visit Information Visit Information Visit Type Treatment Note Visit Start Time 13:05 Visit Stop Time 13:55 Total Visit Minutes 50 Visit Number 10/03 PT-OP-B Current Condition Start: 12/23/17 09:12 Freq: Status: Active Protocol: Document 12/22/17 11:30 LR (Rec: 12/23/17 09:32 [facility] [id number]) Current Condition History of Current Condition Current Complaints L >R knee pain with planned L TKA History of Current Condition Pt presents with L knee pain with planned L TKA on 12/26 and reports she plans on getting her R side after she recovers. Pt reports she has pain in standing and household mobility that dec her ability to do activity. She she does the NUstep and treadmill for her maintenance program at [facility] the [facility] but cannot walk out side d/t high level pain. Pt has to do stairs with step to pattern and down hill walking>uphill is painful. Treatment Goals Patient/Caregiver Goals walk about 30 min outside, be able to go xmas shopping, ability to do activity without pain or worrying if the activity will cause a lot of pain. Personal Factors Other Personal Factors That May Effect Pt lives in a [facility] with no Therapy/Recovery steps to enter. She has a raised toilet with 1/2 wall for UE support, walk in shower with chair and rails. She has a FWW, 4WW and cane. PT-OP-C Subjective Start: 12/23/17 09:12 Freq: Status: Active Protocol: Document 01/23/18 13:10 ML (Rec: 01/23/18 13:45 ML [id number]) OP-PT Subjective Patient Comments Patient Comments Pt notes she went up a lot of shortyer steps with her cane and the rail and it went just fine. She also notes she is taking less pain medication. PT-OP-G Mobility & Gait Start: 12/23/17 09:12 Freq: Status: Active Protocol: Document 12/22/17 11:30 [facility] (Rec: 12/23/17 09:32 [facility] [id number]) OP Gait Assessment Comments Gait Comments Pt amb with dec stance time on LLE with dec post depression & hip ext and lat lean to L with stance of LLE PT-OP-K Range of Motion Start: 12/23/17 09:12 Freq: Status: Active Protocol: Document 01/19/18 13:50 ML (Rec: 01/19/18 14:12 ML [id number]) Knee Goniometric Range of Motion Knee Measured in Degrees Left Patient Position Supine Flexion Active (degrees) 102 Extension Active (degrees) 6 PT-OP-M Strength Start: 12/23/17 09:12 Freq: Status: Active Protocol: Document 01/19/18 13:50 ML (Rec: 01/19/18 14:12 ML [id number]) Hip Strength Hip Manual Muscle Testing Left Flexion (L2) 4 Good Extension (S1) 4 Good Abduction 4+ Good+ Adduction 4 Good External Rotation 3+ Fair+ Internal Rotation 4+ Good+ Comments pain ER; adduction limited in range to test amount of give Knee Strength Knee Manual Muscle Testing Left Flexion (S2) 4+ Good+ Extension (L3) 4+ Good+ PT-OP-Q Treatments Start: 12/23/17 09:12 Freq: Status: Active Protocol: Document 01/23/18 13:10 ML (Rec: 01/23/18 13:45 ML [id number]) Cardio Equipment Recumbent Elliptical (Biodex) Duration (Minutes) 8 Resistance 3-4 Seat Position 5 Recumbent Bicycle Duration (Minutes) 3 Resistance 1 Seat Position 1 Other for ROM Gym Equipment Shuttle Recovery bilat squat Resistance 87 Reps/Time 1x15 unilat squat Details L & R Resistance 67 R; 25 L Reps/Time R1x15; L1x25 Shuttle Balance red clips Details wt shifting Comments side to side Manual Therapy Treatment Soft Tissue Mobilization hamstring L Body Location L Mobilization Type Myofascial Release Sustained Pressure Comments from a passive SLR position with active CR of knee flex; and in hooklying positiong with active DF/PF Manual Techniques passive knee ext Type PA assistance Body Location femur Body Position Supine Comments active DF/PF PT-OP-R Modalities Start: 12/23/17 09:12 Freq: Status: Active Protocol: Document 01/23/18 13:10 ML (Rec: 01/23/18 13:45 ML [id number]) Hot Pack/Cold Pack Treatment Cold Pack Location L knee Patient Position Supine Treatment Duration (minutes) 10 Comments front and back PT-OP-T Assessment and Plan Start: 12/23/17 09:12 Freq: Status: Active Protocol: Document 01/23/18 13:10 ML (Rec: 01/23/18 13:45 ML [id number]) Physical Therapy Assessment Goals endurance Impairment dec endurance Crop Duster Helper Goal (LTG) Pt will be able to be on her feet to prepare a big meal ( multiple hours of preparation) . LTG Duration 03/04/18 - progressing (1 hour) activity tolerance Impairment activity tolerance Short Term Goal (STG) Pt will be able to get from the car to the entrance of the grocery store with no more than 2-3/10 pain. STG Duration 02/01/18 - progressing (5/10 from a 710) Half-Way Goal (LTG) Pt will be able to go for a 20 minute walk with no more than 2-3/10 pain. LTG Duration 03/04/18 HEP Impairment HEP Short Term Goal (STG) Pt will be indep with HEP & edu prior to sx STG Duration 4 weeks- achieved Assessment Summary Assessment Pt's gait still lacks full wt shift and push off on L. Pt's wt shfiting was addressed on the shuttle balance today working on side to side wt shift. Pt's ROM limitations were also addressed today through work on the bike, and manual treatment. Pt was able to improve her mobility and muscle tightness after manual treatment. Pt was able to improve the wt on the leg press as well. Physical Therapy Plan Frequency and Duration Frequency of Treatment 1-2x/Week Duration of Treatment 1 month Plan of Care Start Date 01/19/18 Plan of Care End Date 02/18/18 Next Visit Focus/Plan Next Note Type Treatment Note Next Visit Plan biodex stepper, bike, progress exercises, shuttle balance, shuttle recovery, soft tissue , ROM
--- NOTE | 2018-01-26 13:46 | PT.OTN ---
Current Diagnoses Unilateral primary osteoarthritis, left knee (01/26/18) Physical Therapy Treatment Note PT-OP-A Visit Information Start: 12/23/17 09:12 Freq: Status: Active Protocol: Document 01/26/18 13:00 [facility] (Rec: 01/26/18 13:46 [facility] [id number]) Out-Patient Physical Therapy Visit Information Visit Information Visit Type Treatment Note Visit Start Time 13:00 Visit Stop Time 13:52 Total Visit Minutes 52 Visit Number 05/03 PT-OP-B Current Condition Start: 12/23/17 09:12 Freq: Status: Active Protocol: Document 12/22/17 11:30 [facility] (Rec: 12/23/17 09:32 [facility] [id number]) Current Condition History of Current Condition Current Complaints L >R knee pain with planned L TKA History of Current Condition Pt presents with L knee pain with planned L TKA on 12/26 and reports she plans on getting her R side after she recovers. Pt reports she has pain in standing and household mobility that dec her ability to do activity. She she does the NUstep and treadmill for her maintenance program at pending sale to [facility] but cannot walk out side d/t high level pain. Pt has to do stairs with step to pattern and down hill walking>uphill is painful. Treatment Goals Patient/Caregiver Goals walk about 30 min outside, be able to go xmas shopping, ability to do activity without pain or worrying if the activity will cause a lot of pain. Personal Factors Other Personal Factors That May Effect Pt lives in a [facility] with no Therapy/Recovery steps to enter. She has a raised toilet with 1/2 wall for UE support, walk in shower with chair and rails. She has a FWW, 4WW and cane. PT-OP-C Subjective Start: 12/23/17 09:12 Freq: Status: Active Protocol: Document 01/26/18 13:00 [facility] (Rec: 01/26/18 13:46 [facility] [id number]) OP-PT Subjective Patient Comments Patient Comments Report she tweaked her knee yesterday when getting up off the couch and was painful on lat knee that is a littler better today, but sore med today and in HS. Some soreness noted after leg press in R knee. Reports she had done some vacuuming yesterday. No longer taking narcotics. Tylenol only. PT-OP-G Mobility & Gait Start: 12/23/17 09:12 Freq: Status: Active Protocol: Document 12/22/17 11:30 [facility] (Rec: 12/23/17 09:32 [facility] [id number]) OP Gait Assessment Comments Gait Comments Pt amb with dec stance time on LLE with dec post depression & hip ext and lat lean to L with stance of LLE PT-OP-K Range of Motion Start: 12/23/17 09:12 Freq: Status: Active Protocol: Document 01/19/18 13:50 ML (Rec: 01/19/18 14:12 ML [id number]) Knee Goniometric Range of Motion Knee Measured in Degrees Left Patient Position Supine Flexion Active (degrees) 102 Extension Active (degrees) 6 PT-OP-M Strength Start: 12/23/17 09:12 Freq: Status: Active Protocol: Document 01/19/18 13:50 ML (Rec: 01/19/18 14:12 ML [id number]) Hip Strength Hip Manual Muscle Testing Left Flexion (L2) 4 Good Extension (S1) 4 Good Abduction 4+ Good+ Adduction 4 Good External Rotation 3+ Fair+ Internal Rotation 4+ Good+ Comments pain ER; adduction limited in range to test amount of give Knee Strength Knee Manual Muscle Testing Left Flexion (S2) 4+ Good+ Extension (L3) 4+ Good+ PT-OP-Q Treatments Start: 12/23/17 09:12 Freq: Status: Active Protocol: Document 01/26/18 13:00 [facility] (Rec: 01/26/18 13:46 [facility] [id number]) Cardio Equipment Recumbent Elliptical (Biodex) Duration (Minutes) 4 Resistance 4 Seat Position 4 Recumbent Bicycle Duration (Minutes) 4 Resistance 2 Seat Position 1 Other for ROM Gym Equipment Shuttle Balance red clips Details side Comments wt shift side to side; WBOS then NBOS Therapeutic Exercises Standing Exercises hip ext Standing Exercise Name ext Side bilateral Reps/Minutes 2x10 hip abd Standing Exercise Name abd Side bilateral Reps/Minutes 2x10 mini squats Standing Exercise Name mini squats Side bilateral Resistance L1 around knees Equipment Used bar w/chair behind Reps/Minutes 12 Gait Training Gait Activity No AD Description focus on no lat lean & inc push off Device Used none Comments in mirror Manual Therapy Treatment Soft Tissue Mobilization hamstring L Body Location L Mobilization Type Myofascial Release Sustained Pressure Comments from a passive SLR position with active CR of knee flex; and in hooklying positiong with active DF/PF Manual Techniques passive knee ext Type PA assistance Body Location femur Body Position Supine Comments active DF/PF PT-OP-R Modalities Start: 12/23/17 09:12 Freq: Status: Active Protocol: Document 01/26/18 13:00 [facility] (Rec: 01/26/18 13:46 [facility] [id number]) Hot Pack/Cold Pack Treatment Cold Pack Location L knee Patient Position Supine Treatment Duration (minutes) 10 Comments front and back PT-OP-T Assessment and Plan Start: 12/23/17 09:12 Freq: Status: Active Protocol: Document 01/26/18 13:00 [facility] (Rec: 01/26/18 13:46 [facility] [id number]) Physical Therapy Assessment Goals endurance Impairment dec endurance Ammunition Assembly I Laborer Goal (LTG) Pt will be able to be on her feet to prepare a big meal ( multiple hours of preparation) . LTG Duration 03/04/18 - progressing (1 hour) activity tolerance Impairment activity tolerance Short Term Goal (STG) Pt will be able to get from the car to the entrance of the grocery store with no more than 2-3/10 pain. STG Duration 02/01/18 - progressing (5/10 from a 7/10) Ammunition Assembly I Laborer Goal (LTG) Pt will be able to go for a 20 minute walk with no more than 2-3/10 pain. LTG Duration 03/04/18 HEP Impairment HEP Short Term Goal (STG) Pt will be indep with HEP & edu prior to sx STG Duration 4 weeks- achieved Assessment Summary Assessment Pt was able to improve gait with use of mirror and cueing for inc push off and dec lat lean to L. Difficulty with hip abd in standing to maintain neutral position. Cueing required. Physical Therapy Plan Frequency and Duration Frequency of Treatment 1-2x/Week Duration of Treatment 1 month Plan of Care Start Date 01/19/18 Plan of Care End Date 02/18/18 Next Visit Focus/Plan Next Note Type Treatment Note Next Visit Plan Cont to work on ROM & advance gait & balance; review HEP and progress as needed
--- NOTE | 2018-01-28 13:50 | PT.OTN ---
Current Diagnoses Unilateral primary osteoarthritis, left knee (01/28/18) Physical Therapy Treatment Note PT-OP-A Visit Information Start: 12/23/17 09:12 Freq: Status: Active Protocol: Document 01/28/18 13:03 [facility] (Rec: 01/28/18 13:50 [facility] [id number]) Out-Patient Physical Therapy Visit Information Visit Information Visit Type Treatment Note Visit Start Time 13:04 Visit Stop Time 13:55 Total Visit Minutes 51 Visit Number 06/03 PT-OP-B Current Condition Start: 12/23/17 09:12 Freq: Status: Active Protocol: Document 12/22/17 11:30 [facility] (Rec: 12/23/17 09:32 [facility] [id number]) Current Condition History of Current Condition Current Complaints L >R knee pain with planned L TKA History of Current Condition Pt presents with L knee pain with planned L TKA on 12/26 and reports she plans on getting her R side after she recovers. Pt reports she has pain in standing and household mobility that dec her ability to do activity. She she does the NUstep and treadmill for her maintenance program at [facility] but cannot walk out side d/t high level pain. Pt has to do stairs with step to pattern and down hill walking>uphill is painful. Treatment Goals Patient/Caregiver Goals walk about 30 min outside, be able to go xmas shopping, ability to do activity without pain or worrying if the activity will cause a lot of pain. Personal Factors Other Personal Factors That May Effect Pt lives in a [facility] with no Therapy/Recovery steps to enter. She has a raised toilet with 1/2 wall for UE support, walk in shower with chair and rails. She has a FWW, 4WW and cane. PT-OP-C Subjective Start: 12/23/17 09:12 Freq: Status: Active Protocol: Document 01/28/18 13:03 [facility] (Rec: 01/28/18 13:50 [facility] [id number]) OP-PT Subjective Patient Comments Patient Comments Pt reports she was a little sore after last session. Cont compliance with HEP. PT-OP-G Mobility & Gait Start: 12/23/17 09:12 Freq: Status: Active Protocol: Document 12/22/17 11:30 [facility] (Rec: 12/23/17 09:32 [facility] [id number]) OP Gait Assessment Comments Gait Comments Pt amb with dec stance time on LLE with dec post depression & hip ext and lat lean to L with stance of LLE PT-OP-K Range of Motion Start: 12/23/17 09:12 Freq: Status: Active Protocol: Document 01/19/18 13:50 ML (Rec: 01/19/18 14:12 ML [id number]) Knee Goniometric Range of Motion Knee Measured in Degrees Left Patient Position Supine Flexion Active (degrees) 102 Extension Active (degrees) 6 PT-OP-M Strength Start: 12/23/17 09:12 Freq: Status: Active Protocol: Document 01/19/18 13:50 ML (Rec: 01/19/18 14:12 ML [id number]) Hip Strength Hip Manual Muscle Testing Left Flexion (L2) 4 Good Extension (S1) 4 Good Abduction 4+ Good+ Adduction 4 Good External Rotation 3+ Fair+ Internal Rotation 4+ Good+ Comments pain ER; adduction limited in range to test amount of give Knee Strength Knee Manual Muscle Testing Left Flexion (S2) 4+ Good+ Extension (L3) 4+ Good+ PT-OP-Q Treatments Start: 12/23/17 09:12 Freq: Status: Active Protocol: Document 01/28/18 13:03 [facility] (Rec: 01/28/18 13:50 [facility] [id number]) Cardio Equipment Recumbent Elliptical (Biodex) Duration (Minutes) 3 Resistance 5 Seat Position 4 Recumbent Bicycle Duration (Minutes) 5 Resistance 2 Seat Position 1 Other for ROM Gym Equipment Shuttle Balance red clips Details red Comments wt shift side to side; WBOS then NBOS; WBOS fwd Therapeutic Exercises Supine Exercises bridge Supine Exercise Name arms in air Reps/Minutes 8 heel slides Supine Exercise Name active heel slide with gait belt pull at end Reps/Minutes 4 SLR Supine Exercise Name focus on no ext lag Reps/Minutes 8 Sitting Exercises active knee flex Sitting Exercise Name with passive scoot at end range Standing Exercises calf stretch Standing Exercise Name michael Reps/Minutes 30 sec hip ext Standing Exercise Name ext Side bilateral Reps/Minutes 2x10 hip abd Standing Exercise Name abd Side bilateral Reps/Minutes 2x10 mini squats Standing Exercise Name mini squats Side bilateral Equipment Used bar w/chair behind Reps/Minutes 12 Comments focus on deeper squat Manual Therapy Treatment Joint Mobilizations tibfem Direction AP femur & tibia patella Joint PF Direction sup/inf/med PT-OP-R Modalities Start: 12/23/17 09:12 Freq: Status: Active Protocol: Document 01/28/18 13:03 [facility] (Rec: 01/28/18 13:50 [facility] [id number]) Hot Pack/Cold Pack Treatment Cold Pack Location L knee Patient Position Supine Treatment Duration (minutes) 10 Comments front and back PT-OP-T Assessment and Plan Start: 12/23/17 09:12 Freq: Status: Active Protocol: Document 01/28/18 13:03 [facility] (Rec: 01/28/18 13:50 [facility] [id number]) Physical Therapy Assessment Goals endurance Impairment dec endurance Fdc Goal (LTG) Pt will be able to be on her feet to prepare a big meal ( multiple hours of preparation) . LTG Duration 03/04/18 - progressing (1 hour) activity tolerance Impairment activity tolerance Short Term Goal (STG) Pt will be able to get from the car to the entrance of the grocery store with no more than 2-3/10 pain. STG Duration 02/01/18 - progressing (5/10 from a 7/10) Fdc Goal (LTG) Pt will be able to go for a 20 minute walk with no more than 2-3/10 pain. LTG Duration 03/04/18 HEP Impairment HEP Short Term Goal (STG) Pt will be indep with HEP & edu prior to sx STG Duration 4 weeks- achieved Assessment Summary Assessment Pt cont to have difficulty with balance activity on balance board, but did improve with form with standing exercises. She cont to have wekaness in quad and requires cueing with SLR to avoid ext lag. Improved to full ext after manual rx. Physical Therapy Plan Frequency and Duration Frequency of Treatment 1-2x/Week Duration of Treatment 1 month Plan of Care Start Date 01/19/18 Plan of Care End Date 02/18/18 Next Visit Focus/Plan Next Note Type Treatment Note Next Visit Plan Advance ROM, focus on glute strength & quad strength
--- NOTE | 2018-02-03 13:46 | PT.OTN ---
Current Diagnoses Unilateral primary osteoarthritis, left knee (02/03/18) Physical Therapy Treatment Note PT-OP-A Visit Information Start: 12/23/17 09:12 Freq: Status: Active Protocol: Document 02/03/18 13:03 [facility] (Rec: 02/03/18 13:45 [facility] [id number]) Out-Patient Physical Therapy Visit Information Visit Information Visit Type Treatment Note Visit Start Time 13:00 Visit Stop Time 13:55 Total Visit Minutes 55 Visit Number 07/03 PT-OP-B Current Condition Start: 12/23/17 09:12 Freq: Status: Active Protocol: Document 12/22/17 11:30 [facility] (Rec: 12/23/17 09:32 [facility] [id number]) Current Condition History of Current Condition Current Complaints L >R knee pain with planned L TKA History of Current Condition Pt presents with L knee pain with planned L TKA on 12/26 and reports she plans on getting her R side after she recovers. Pt reports she has pain in standing and household mobility that dec her ability to do activity. She she does the NUstep and treadmill [facility] but cannot walk out side d/t high level pain. Pt has to do stairs with step to pattern and down hill walking>uphill is painful. Treatment Goals Patient/Caregiver Goals walk about 30 min outside, be able to go xmas shopping, ability to do activity without pain or worrying if the activity will cause a lot of pain. Personal Factors Other Personal Factors That May Effect Pt lives in a [facility] with no Therapy/Recovery steps to enter. She has a raised toilet with 1/2 wall for UE support, walk in shower with chair and rails. She has a FWW, 4WW and cane. PT-OP-C Subjective Start: 12/23/17 09:12 Freq: Status: Active Protocol: Document 02/03/18 13:03 [facility] (Rec: 02/03/18 13:45 [facility] [id number]) OP-PT Subjective Patient Comments Patient Comments Pt reports less tylenol today. Reports a couple days ago, she thinks she pushed herself too much with the flex exercise and was sore for about 1.5 days but is better today. She is doing more around the house. PT-OP-G Mobility & Gait Start: 12/23/17 09:12 Freq: Status: Active Protocol: Document 12/22/17 11:30 [facility] (Rec: 12/23/17 09:32 [facility] [id number]) OP Gait Assessment Comments Gait Comments Pt amb with dec stance time on LLE with dec post depression & hip ext and lat lean to L with stance of LLE PT-OP-K Range of Motion Start: 12/23/17 09:12 Freq: Status: Active Protocol: Document 01/19/18 13:50 ML (Rec: 01/19/18 14:12 ML [id number]) Knee Goniometric Range of Motion Knee Measured in Degrees Left Patient Position Supine Flexion Active (degrees) 102 Extension Active (degrees) 6 PT-OP-M Strength Start: 12/23/17 09:12 Freq: Status: Active Protocol: Document 01/19/18 13:50 ML (Rec: 01/19/18 14:12 ML [id number]) Hip Strength Hip Manual Muscle Testing Left Flexion (L2) 4 Good Extension (S1) 4 Good Abduction 4+ Good+ Adduction 4 Good External Rotation 3+ Fair+ Internal Rotation 4+ Good+ Comments pain ER; adduction limited in range to test amount of give Knee Strength Knee Manual Muscle Testing Left Flexion (S2) 4+ Good+ Extension (L3) 4+ Good+ PT-OP-Q Treatments Start: 12/23/17 09:12 Freq: Status: Active Protocol: Document 02/03/18 13:03 [facility] (Rec: 02/03/18 13:45 [facility] [id number]) Cardio Equipment Recumbent Bicycle Duration (Minutes) 6 Resistance 2 Seat Position 1 Other for ROM Therapeutic Exercises Standing Exercises SLS Standing Exercise Name SLS in mirror Side left Equipment Used counter as needed lunge Standing Exercise Name lunge at rail Side bilateral Reps/Minutes 10 mini squats Standing Exercise Name mini squats Side bilateral Equipment Used bar w/chair behind Reps/Minutes 15 Comments focus on deeper squat side step Standing Exercise Name sidestep Resistance yellow Equipment Used rail prn Reps/Minutes 2x20 Manual Therapy Treatment Soft Tissue Mobilization scar tissue Body Location ant knee L Mobilization Type Rolling Intensity/Depth Moderate Body Position Supine PT-OP-R Modalities Start: 12/23/17 09:12 Freq: Status: Active Protocol: Document 02/03/18 13:03 [facility] (Rec: 02/03/18 13:45 [facility] [id number]) Hot Pack/Cold Pack Treatment Cold Pack Location L knee Patient Position Supine Treatment Duration (minutes) 10 Comments front and back PT-OP-T Assessment and Plan Start: 12/23/17 09:12 Freq: Status: Active Protocol: Document 02/03/18 13:03 [facility] (Rec: 02/03/18 13:45 [facility] [id number]) Physical Therapy Assessment Goals endurance Impairment dec endurance Hand Slitter Goal (LTG) Pt will be able to be on her feet to prepare a big meal ( multiple hours of preparation) . LTG Duration 03/04/18 - progressing (1 hour) activity tolerance Impairment activity tolerance Short Term Goal (STG) Pt will be able to get from the car to the entrance of the grocery store with no more than 2-3/10 pain. STG Duration 02/01/18 - progressing (5/10 from a 7/10) [facility] Goal (LTG) Pt will be able to go for a 20 minute walk with no more than 2-3/10 pain. LTG Duration 03/04/18 HEP Impairment HEP Short Term Goal (STG) Pt will be indep with HEP & edu prior to sx STG Duration 4 weeks- achieved Assessment Summary Assessment Pt had improved ROM to 2-117 before manual treatment and full ext after manual rx. Pt educated to work on scar tissue herself during scar tissue work. Physical Therapy Plan Frequency and Duration Frequency of Treatment 1-2x/Week Duration of Treatment 1 month Plan of Care Start Date 01/19/18 Plan of Care End Date 02/18/18 Next Visit Focus/Plan Next Note Type Treatment Note Next Visit Plan Advance ROM, focus on glute strength & quad strength
--- NOTE | 2018-02-06 13:44 | PT.OTN ---
Current Diagnoses Unilateral primary osteoarthritis, left knee (02/06/18) Physical Therapy Treatment Note PT-OP-A Visit Information Start: 12/23/17 09:12 Freq: Status: Active Protocol: Document 02/06/18 13:04 [facility] (Rec: 02/06/18 13:44 [facility] [id number]) Out-Patient Physical Therapy Visit Information Visit Information Visit Type Treatment Note Visit Start Time 13:00 Visit Stop Time 13:55 Total Visit Minutes 55 Visit Number 08/03 PT-OP-B Current Condition Start: 12/23/17 09:12 Freq: Status: Active Protocol: Document 12/22/17 11:30 [facility] (Rec: 12/23/17 09:32 [facility] [id number]) Current Condition History of Current Condition Current Complaints L >R knee pain with planned L TKA History of Current Condition Pt presents with L knee pain with planned L TKA on 12/26 and reports she plans on getting her R side after she recovers. Pt reports she has pain in standing and household mobility that dec her ability to do activity. She she does the NUstep and treadmill for her maintenance program at [facility] but cannot walk out side d/t high level pain. Pt has to do stairs with step to pattern and down hill walking>uphill is painful. Treatment Goals Patient/Caregiver Goals walk about 30 min outside, be able to go xmas shopping, ability to do activity without pain or worrying if the activity will cause a lot of pain. Personal Factors Other Personal Factors That May Effect Pt lives [facility] a [facility] with no Therapy/Recovery steps to enter. She has a raised toilet with 1/2 wall for UE support, walk in shower with chair and rails. She has a FWW, 4WW and cane. PT-OP-C Subjective Start: 12/23/17 09:12 Freq: Status: Active Protocol: Document 02/06/18 13:04 [facility] (Rec: 02/06/18 13:44 [facility] [id number]) OP-PT Subjective Patient Comments Patient Comments pt reports she had her oncology follow up today and was told still no cancer returning. PT-OP-G Mobility & Gait Start: 12/23/17 09:12 Freq: Status: Active Protocol: Document 12/22/17 11:30 [facility] (Rec: 12/23/17 09:32 [facility] [id number]) OP Gait Assessment Comments Gait Comments Pt amb with dec stance time on LLE with dec post depression & hip ext and lat lean to L with stance of LLE PT-OP-K Range of Motion Start: 12/23/17 09:12 Freq: Status: Active Protocol: Document 01/19/18 13:50 ML (Rec: 01/19/18 14:12 ML [id number]) Knee Goniometric Range of Motion Knee Measured in Degrees Left Patient Position Supine Flexion Active (degrees) 102 Extension Active (degrees) 6 PT-OP-M Strength Start: 12/23/17 09:12 Freq: Status: Active Protocol: Document 01/19/18 13:50 ML (Rec: 01/19/18 14:12 ML [id number]) Hip Strength Hip Manual Muscle Testing Left Flexion (L2) 4 Good Extension (S1) 4 Good Abduction 4+ Good+ Adduction 4 Good External Rotation 3+ Fair+ Internal Rotation 4+ Good+ Comments pain ER; adduction limited in range to test amount of give Knee Strength Knee Manual Muscle Testing Left Flexion (S2) 4+ Good+ Extension (L3) 4+ Good+ PT-OP-Q Treatments Start: 12/23/17 09:12 Freq: Status: Active Protocol: Document 02/06/18 13:04 [facility] (Rec: 02/06/18 13:44 [facility] [id number]) Cardio Equipment Recumbent Bicycle Duration (Minutes) 6 Resistance 3 Seat Position 1 Other for ROM Therapeutic Exercises Standing Exercises sit to stand Standing Exercise Name from 16 in surfaces Comments stoppe dd/t pain SLS Standing Exercise Name SLS in mirror Side left Equipment Used counter as needed lunge Standing Exercise Name lunge at rail Side bilateral Reps/Minutes 20 mini squats Standing Exercise Name mini squats Side bilateral Equipment Used bar w/chair behind Reps/Minutes 15 Comments focus on deeper squat Manual Therapy Treatment Soft Tissue Mobilization scar tissue Body Location ant knee L Mobilization Type Myofascial Release Rolling Intensity/Depth Moderate Body Position Supine Comments plunger, dycem & rolling PT-OP-R Modalities Start: 12/23/17 09:12 Freq: Status: Active Protocol: Document 02/06/18 13:04 [facility] (Rec: 02/06/18 13:44 [facility] [id number]) Hot Pack/Cold Pack Treatment Cold Pack Location L knee Patient Position Supine Treatment Duration (minutes) 10 Comments front and back PT-OP-T Assessment and Plan Start: 12/23/17 09:12 Freq: Status: Active Protocol: Document 02/06/18 13:04 [facility] (Rec: 02/06/18 13:44 [facility] [id number]) Physical Therapy Assessment Goals endurance Impairment dec endurance Digital Artist Goal (LTG) Pt will be able to be on her feet to prepare a big meal ( multiple hours of preparation) . LTG Duration 03/04/18 - progressing (1 hour) activity tolerance Impairment activity tolerance Short Term Goal (STG) Pt will be able to get from the car to the entrance of the grocery store with no more than 2-3/10 pain. STG Duration 02/01/18 - progressing (5/10 from a 7/10) [facility] Goal (LTG) Pt will be able to go for a 20 minute walk with no more than 2-3/10 pain. LTG Duration 03/04/18 HEP Impairment HEP Short Term Goal (STG) Pt will be indep with HEP & edu prior to sx STG Duration 4 weeks- achieved Assessment Summary Assessment ROM before manual today 3-114 like dec ROM d/t swelling d/t inc time on feet today. Improving scar tissue mobility . Physical Therapy Plan Frequency and Duration Frequency of Treatment 1-2x/Week Duration of Treatment 1 month Plan of Care Start Date 01/19/18 Plan of Care End Date 02/18/18 Next Visit Focus/Plan Next Note Type Treatment Note Next Visit Plan Cont to work on glute & quad strength
--- NOTE | 2018-02-10 13:43 | PT.OTN ---
Current Diagnoses Unilateral primary osteoarthritis, left knee (02/10/18) Physical Therapy Treatment Note PT-OP-A Visit Information Start: 12/23/17 09:12 Freq: Status: Active Protocol: Document 02/10/18 13:00 [facility] (Rec: 02/10/18 13:43 [facility] [id number]) Out-Patient Physical Therapy Visit Information Visit Information Visit Type Treatment Note Visit Start Time 13:00 Visit Stop Time 13:55 Total Visit Minutes 55 Visit Number 09/02 PT-OP-B Current Condition Start: 12/23/17 09:12 Freq: Status: Active Protocol: Document 12/22/17 11:30 [facility] (Rec: 12/23/17 09:32 [facility] [id number]) Current Condition History of Current Condition Current Complaints L >R knee pain with planned L TKA History of Current Condition Pt presents with L knee pain with planned L TKA on 12/26 and reports she plans on getting her R side after she recovers. Pt reports she has pain in standing and household mobility that dec her ability to do activity. She she does the NUstep and treadmill for her maintenance program at [facility] but cannot walk out side d/t high level pain. Pt has to do stairs with step to pattern and down hill walking>uphill is painful. Treatment Goals Patient/Caregiver Goals walk about 30 min outside, be able to go xmas shopping, ability to do activity without pain or worrying if the activity will cause a lot of pain. Personal Factors Other Personal Factors That May Effect Pt lives in a [facility] with no Therapy/Recovery steps to enter. She has a raised toilet with 1/2 wall for UE support, walk in shower with chair and rails. She has a FWW, 4WW and cane. PT-OP-C Subjective Start: 12/23/17 09:12 Freq: Status: Active Protocol: Document 02/10/18 13:00 [facility] (Rec: 02/10/18 13:43 [facility] [id number]) OP-PT Subjective Patient Comments Patient Comments Reports she took her 4WW shopping and went for 1 hour and did not have to sit down. Pt reports knee felt okay after that. PT-OP-G Mobility & Gait Start: 12/23/17 09:12 Freq: Status: Active Protocol: Document 12/22/17 11:30 [facility] (Rec: 12/23/17 09:32 [facility] [id number]) OP Gait Assessment Comments Gait Comments Pt amb with dec stance time on LLE with dec post depression & hip ext and lat lean to L with stance of LLE PT-OP-K Range of Motion Start: 12/23/17 09:12 Freq: Status: Active Protocol: Document 01/19/18 13:50 ML (Rec: 01/19/18 14:12 ML [id number]) Knee Goniometric Range of Motion Knee Measured in Degrees Left Patient Position Supine Flexion Active (degrees) 102 Extension Active (degrees) 6 PT-OP-M Strength Start: 12/23/17 09:12 Freq: Status: Active Protocol: Document 01/19/18 13:50 ML (Rec: 01/19/18 14:12 ML [id number]) Hip Strength Hip Manual Muscle Testing Left Flexion (L2) 4 Good Extension (S1) 4 Good Abduction 4+ Good+ Adduction 4 Good External Rotation 3+ Fair+ Internal Rotation 4+ Good+ Comments pain ER; adduction limited in range to test amount of give Knee Strength Knee Manual Muscle Testing Left Flexion (S2) 4+ Good+ Extension (L3) 4+ Good+ PT-OP-Q Treatments Start: 12/23/17 09:12 Freq: Status: Active Protocol: Document 02/10/18 13:00 [facility] (Rec: 02/10/18 13:43 [facility] [id number]) Cardio Equipment Recumbent Bicycle Duration (Minutes) 6 Resistance 3 Seat Position 1 Other for ROM Therapeutic Exercises Standing Exercises lunge Standing Exercise Name lunge at rail Side bilateral Reps/Minutes 10 calf raises Standing Exercise Name double leg up and single eccentric side step Standing Exercise Name sidestep Resistance yellow Equipment Used rail prn Reps/Minutes 2x20 Gait Training Gait Activity step ups Description 6 in step Comments 2x10 with cueing for weight shift stairs Description 6 in steps reciprocally Comments 1-2 rails 3 reps No AD Description focus on no lat lean & inc push off Device Used none Comments in mirror; focus on push off Manual Therapy Treatment Soft Tissue Mobilization scar tissue Body Location ant knee L Mobilization Type Myofascial Release Rolling Intensity/Depth Moderate Body Position Supine Comments plunger, dycem & rolling Joint Mobilizations tibfem Direction PA FM PT-OP-R Modalities Start: 12/23/17 09:12 Freq: Status: Active Protocol: Document 02/10/18 13:00 [facility] (Rec: 02/10/18 13:43 [facility] [id number]) Hot Pack/Cold Pack Treatment Cold Pack Location L knee Patient Position Supine Treatment Duration (minutes) 10 Comments front and back PT-OP-T Assessment and Plan Start: 12/23/17 09:12 Freq: Status: Active Protocol: Document 02/10/18 13:00 [facility] (Rec: 02/10/18 13:43 [facility] [id number]) Physical Therapy Assessment Goals endurance Impairment dec endurance Mcfp Goal (LTG) Pt will be able to be on her feet to prepare a big meal ( multiple hours of preparation) . LTG Duration 03/04/18 - progressing (1 hour) activity tolerance Impairment activity tolerance Short Term Goal (STG) Pt will be able to get from the car to the entrance of the grocery store with no more than 2-3/10 pain. STG Duration achieved [employer] Driving Horses Goal (LTG) Pt will be able to go for a 20 minute walk with no more than 2-3/10 pain. LTG Duration 03/04/18 HEP Impairment HEP Short Term Goal (STG) Pt will be indep with HEP & edu prior to sx STG Duration 4 weeks- achieved Assessment Summary Assessment ROM before manual 0-110. After manual 0-119 after. Pt improved gait & stairs with cueing & use of mirror. Physical Therapy Plan Frequency and Duration Frequency of Treatment 1-2x/Week Duration of Treatment 1 month Plan of Care Start Date 01/19/18 Plan of Care End Date 02/18/18 Next Visit Focus/Plan Next Note Type Progress Note Next Visit Plan check ROM & strength to see pt cont issues.
--- NOTE | 2018-02-13 13:44 | PT.OTN ---
Current Diagnoses Unilateral primary osteoarthritis, left knee (02/13/18) Physical Therapy Treatment Note PT-OP-A Visit Information Start: 12/23/17 09:12 Freq: Status: Active Protocol: Document 02/13/18 13:04 [facility] (Rec: 02/13/18 13:42 [facility] [id number]) Out-Patient Physical Therapy Visit Information Visit Information Visit Type Treatment Note Visit Note 13 visits Visit Start Time 13:00 Visit Stop Time 13:55 Total Visit Minutes 55 Visit Number 03/05 PT-OP-B Current Condition Start: 12/23/17 09:12 Freq: Status: Active Protocol: Document 12/22/17 11:30 [facility] (Rec: 12/23/17 09:32 [facility] [id number]) Current Condition History of Current Condition Current Complaints L >R knee pain with planned L TKA History of Current Condition Pt presents with L knee pain with planned L TKA on 12/26 and reports she plans on getting her R side after she recovers. Pt reports she has pain in standing and household mobility that dec her ability to do activity. She she does the NUstep and treadmill for her maintenance program at [facility] but cannot walk out side d/t high level pain. Pt has to do stairs with step to pattern and down hill walking>uphill is painful. Treatment Goals Patient/Caregiver Goals walk about 30 min outside, be able to go xmas shopping, ability to do activity without pain or worrying if the activity will cause a lot of pain. Personal Factors Other Personal Factors That May Effect Pt lives in a [facility] with no Therapy/Recovery steps to enter. She has a raised toilet with 1/2 wall for UE support, walk in shower with chair and rails. She has a FWW, 4WW and cane. PT-OP-C Subjective Start: 12/23/17 09:12 Freq: Status: Active Protocol: Document 02/13/18 13:04 [facility] (Rec: 02/13/18 13:42 [facility] [id number]) OP-PT Subjective Patient Comments Patient Comments Pt reports she has been starting some meal prep and was able to stand and wrap packages for 1 hour standing PT-OP-G Mobility & Gait Start: 12/23/17 09:12 Freq: Status: Active Protocol: Document 12/22/17 11:30 [facility] (Rec: 12/23/17 09:32 [facility] [id number]) OP Gait Assessment Comments Gait Comments Pt amb with dec stance time on LLE with dec post depression & hip ext and lat lean to L with stance of LLE PT-OP-K Range of Motion Start: 12/23/17 09:12 Freq: Status: Active Protocol: Document 02/13/18 13:04 [facility] (Rec: 02/13/18 13:42 [facility] [id number]) Knee Goniometric Range of Motion Knee Measured in Degrees Left Flexion Active (degrees) 115 Flexion Passive (degrees) 0 Extension Active (degrees) 2 PT-OP-M Strength Start: 12/23/17 09:12 Freq: Status: Active Protocol: Document 02/13/18 13:04 [facility] (Rec: 02/13/18 13:42 [facility] [id number]) Hip Strength Hip Manual Muscle Testing Left Flexion (L2) 4 Good Extension (S1) 4 Good Abduction 4+ Good+ External Rotation 4 Good Internal Rotation 4+ Good+ Knee Strength Knee Manual Muscle Testing Left Flexion (S2) 4+ Good+ Extension (L3) 4+ Good+ PT-OP-Q Treatments Start: 12/23/17 09:12 Freq: Status: Active Protocol: Document 02/13/18 13:04 [facility] (Rec: 02/13/18 13:42 [facility] [id number]) Cardio Equipment Recumbent Bicycle Duration (Minutes) 7 Resistance 3 Seat Position 1 Other for ROM Therapeutic Exercises Standing Exercises lunge Standing Exercise Name lunge at rail Side bilateral Reps/Minutes 10 hip ext Standing Exercise Name ext Side bilateral Equipment Used L2 Reps/Minutes 2x10 Gait Training Gait Activity step ups Description 6 in step Comments 10 with cueing for weight shift 10 step ups onto bous iwth 1 rail each stairs Description 6 in steps reciprocally Comments 1-2 rails 3 reps No AD Description focus on no lat lean & inc push off Device Used none Comments in mirror; focus on push off Manual Therapy Treatment Soft Tissue Mobilization scar tissue Body Location ant knee L Mobilization Type Myofascial Release Rolling Intensity/Depth Moderate Body Position Supine Comments plunger, dycem & rolling PT-OP-R Modalities Start: 12/23/17 09:12 Freq: Status: Active Protocol: Document 02/13/18 13:04 [facility] (Rec: 02/13/18 13:43 [facility] [id number]) Hot Pack/Cold Pack Treatment Cold Pack Location L knee Patient Position Supine Treatment Duration (minutes) 10 Comments front and back PT-OP-T Assessment and Plan Start: 12/23/17 09:12 Freq: Status: Active Protocol: Document 02/13/18 13:04 [facility] (Rec: 02/13/18 13:42 [facility] [id number]) Physical Therapy Assessment Goals stairs Mattress Stuffer Goal (LTG) up/down stairs with 1 rail reciprocally without major pain inc LTG Duration 03/14/18 endurance Impairment dec endurance Mattress Stuffer Goal (LTG) Pt will be able to be on her feet to prepare a big meal ( multiple hours of preparation) . LTG Duration 03/04/18 - progressing (1 hour) activity tolerance Impairment activity tolerance Short Term Goal (STG) Pt will be able to get from the car to the entrance of the grocery store with no more than 2-3/10 pain. STG Duration achieved Mattress Stuffer Goal (LTG) Pt will be able to go for a 20 minute walk with no more than 2-3/10 pain. LTG Duration 03/04/18- achieved HEP Impairment HEP Short Term Goal (STG) Pt will be indep with HEP & edu prior to sx STG Duration 4 weeks- achieved Assessment Summary Assessment Pt improving w/ ROM and strength. She is having difficulty with control down 6 in steps and strength to get up 6 in step. SHe is inc with functional activity tolerance Physical Therapy Plan Frequency and Duration Frequency of Treatment 1-2x/Week Duration of Treatment 1 month Plan of Care Start Date 01/19/18 Plan of Care End Date 02/18/18 Therapeutic Interventions Therapeutic Interventions Aquatic Therapy Balance Training Gait Training Home Exercise Program Joint Mobilizations Manual Therapy Neuromuscular Re-education Self-Care/Home Management Soft Tissue Mobilization Taping Therapeutic Activities Therapeutic Exercises Modalities Cold Pack/Ice Massage Electric Stimulation Hot Packs Ultrasound Next Visit Focus/Plan Next Note Type Treatment Note Next Visit Plan Work on hip ext and knee ext
--- NOTE | 2018-02-13 13:44 | PT.OPPOC ---
Current Diagnoses Unilateral primary osteoarthritis, left knee (02/13/18) Provider Visit Care Team Role Provider Type Monica Cook PA-C Family Provider Advanced [employer] Combatant Crewman Primary Care Provider Specialty: Medical Address: [address] [place] [address], [id number] Email: [email or web address] Obinna Ch MD Attending Provider Physician Specialty: Orthopedic Surgery Address: [address] [place] [address], [id number] Email: [email or web address] Plan Of Care PT-OP-T Assessment and Plan Start: 12/23/17 09:12 Freq: Status: Active Protocol: Document 02/13/18 13:04 [facility] (Rec: 02/13/18 13:42 [facility] [id number]) Physical Therapy Assessment Goals stairs Usp Goal (LTG) up/down stairs with 1 rail reciprocally without major pain inc LTG Duration 03/14/18 endurance Impairment dec endurance Usp Goal (LTG) Pt will be able to be on her feet to prepare a big meal ( multiple hours of preparation) . LTG Duration 03/04/18 - progressing (1 hour) activity tolerance Impairment activity tolerance Short Term Goal (STG) Pt will be able to get from the car to the entrance of the grocery store with no more than 2-3/10 pain. STG Duration achieved Usp Goal (LTG) Pt will be able to go for a 20 minute walk with no more than 2-3/10 pain. LTG Duration 03/04/18- achieved HEP Impairment HEP Short Term Goal (STG) Pt will be indep with HEP & edu prior to sx STG Duration 4 weeks- achieved Assessment Summary Assessment Pt improving w/ ROM and strength. She is having difficulty with control down 6 in steps and strength to get up 6 in step. SHe is inc with functional activity tolerance Physical Therapy Plan Frequency and Duration Frequency of Treatment 1-2x/Week Duration of Treatment 1 month Plan of Care Start Date 02/13/18 Plan of Care End Date 03/16/18 Therapeutic Interventions Therapeutic Interventions Aquatic Therapy Balance Training Gait Training Home Exercise Program Joint Mobilizations Manual Therapy Neuromuscular Re-education Self-Care/Home Management Soft Tissue Mobilization Taping Therapeutic Activities Therapeutic Exercises Modalities Cold Pack/Ice Massage Electric Stimulation Hot Packs Ultrasound Next Visit Focus/Plan Next Note Type Treatment Note Next Visit Plan Work on hip ext and knee ext Plan of Care Dates Plan of Care Start Date 02/13/18 Plan of Care End Date 03/16/18 Please Sign and Return: I have reviewed this Plan of Care and certify that the skilled therapy services above are required to meet the patient?s needs. Physician Signature Date Printed Name and Credentials Clinical Instructor Signature Printed Name and Credentials
--- NOTE | 2018-02-18 13:45 | PT.OTN ---
Current Diagnoses Unilateral primary osteoarthritis, left knee (02/18/18) Physical Therapy Treatment Note PT-OP-A Visit Information Start: 12/23/17 09:12 Freq: Status: Active Protocol: Document 02/18/18 13:01 [facility] (Rec: 02/18/18 13:44 [facility] [id number]) Out-Patient Physical Therapy Visit Information Visit Information Visit Type Treatment Note Visit Note 14 visits Visit Start Time 13:00 Visit Stop Time 13:55 Total Visit Minutes 55 Visit Number 04/05 PT-OP-B Current Condition Start: 12/23/17 09:12 Freq: Status: Active Protocol: Document 12/22/17 11:30 [facility] (Rec: 12/23/17 09:32 [facility] [id number]) Current Condition History of Current Condition Current Complaints L >R knee pain with planned L TKA History of Current Condition Pt presents with L knee pain with planned L TKA on 12/26 and reports she plans on getting her R side after she recovers. Pt reports she has pain in standing and household mobility that dec her ability to do activity. She she does the NUstep and treadmill for her maintenance program at [facility] but cannot walk out side d/t high level pain. Pt has to do stairs with step to pattern and down hill walking>uphill is painful. Treatment Goals Patient/Caregiver Goals walk about 30 min outside, be able to go xmas shopping, ability to do activity without pain or worrying if the activity will cause a lot of pain. Personal Factors Other Personal Factors That May Effect Pt lives in a [facility] with no Therapy/Recovery steps to enter. She has a raised toilet with 1/2 wall for UE support, walk in shower with chair and rails. She has a FWW, 4WW and cane. PT-OP-C Subjective Start: 12/23/17 09:12 Freq: Status: Active Protocol: Document 02/18/18 13:01 [facility] (Rec: 02/18/18 13:44 [facility] [id number]) OP-PT Subjective Patient Comments Patient Comments Pt reports preparing the meal went well. PT-OP-G Mobility & Gait Start: 12/23/17 09:12 Freq: Status: Active Protocol: Document 12/22/17 11:30 [facility] (Rec: 12/23/17 09:32 [facility] [id number]) OP Gait Assessment Comments Gait Comments Pt amb with dec stance time on LLE with dec post depression & hip ext and lat lean to L with stance of LLE PT-OP-K Range of Motion Start: 12/23/17 09:12 Freq: Status: Active Protocol: Document 02/13/18 13:04 [facility] (Rec: 02/13/18 13:42 [facility] [id number]) Knee Goniometric Range of Motion Knee Measured in Degrees Left Flexion Active (degrees) 115 Flexion Passive (degrees) 0 Extension Active (degrees) 2 PT-OP-M Strength Start: 12/23/17 09:12 Freq: Status: Active Protocol: Document 02/13/18 13:04 [facility] (Rec: 02/13/18 13:42 [facility] [id number]) Hip Strength Hip Manual Muscle Testing Left Flexion (L2) 4 Good Extension (S1) 4 Good Abduction 4+ Good+ External Rotation 4 Good Internal Rotation 4+ Good+ Knee Strength Knee Manual Muscle Testing Left Flexion (S2) 4+ Good+ Extension (L3) 4+ Good+ PT-OP-Q Treatments Start: 12/23/17 09:12 Freq: Status: Active Protocol: Document 02/18/18 13:01 [facility] (Rec: 02/18/18 13:44 [facility] [id number]) Cardio Equipment Recumbent Bicycle Duration (Minutes) 6 Resistance 4 Seat Position 1 Other for ROM Gym Equipment Shuttle Recovery bilat squat Resistance 75# Shuttle Recovery Platform Unstable Reps/Time 30 unilat squat Details bilat Resistance 37# Shuttle Recovery Platform Unstable Reps/Time 30 Therapeutic Exercises Standing Exercises reciprocal steps Standing Exercise Name up/down 6 in steps with 1 rail up and 2 down Reps/Minutes 2 reps step up Standing Exercise Name up 6 in step Side left Reps/Minutes 15 Comments 1 rail sit to stand Standing Exercise Name from mat table 3 in above pt knees Reps/Minutes 10 Comments controlled decent lunge Standing Exercise Name lunge at rail Side bilateral Reps/Minutes 10 Comments inc foot position distance & full Manual Therapy Treatment Soft Tissue Mobilization scar tissue Body Location ant knee L Mobilization Type Myofascial Release Rolling Intensity/Depth Moderate Body Position Supine Comments plunger, dycem & rolling PT-OP-R Modalities Start: 10/30/18 09:12 Freq: Status: Active Protocol: Document 02/18/18 13:01 [facility] (Rec: 02/18/18 13:45 [facility] [id number]) Hot Pack/Cold Pack Treatment Cold Pack Location L knee Patient Position Supine Treatment Duration (minutes) 10 Comments front and back PT-OP-T Assessment and Plan Start: 12/23/17 09:12 Freq: Status: Active Protocol: Document 02/18/18 13:01 [facility] (Rec: 02/18/18 13:44 [facility] [id number]) Physical Therapy Assessment Goals stairs Drier Transfer Car Operator Goal (LTG) up/down stairs with 1 rail reciprocally without major pain inc LTG Duration 03/14/18 endurance Impairment dec endurance Assisted Goal (LTG) Pt will be able to be on her feet to prepare a big meal ( multiple hours of preparation) . LTG Duration achieved activity tolerance Impairment activity tolerance Short Term Goal (STG) Pt will be able to get from the car to the entrance of the grocery store with no more than 2-3/10 pain. STG Duration achieved Assisted Goal (LTG) Pt will be able to go for a 20 minute walk with no more than 2-3/10 pain. LTG Duration 03/04/18- achieved HEP Impairment HEP Short Term Goal (STG) Pt will be indep with HEP & edu prior to sx STG Duration 4 weeks- achieved Assessment Summary Assessment Pt required cueing with step ups for weight shift improvement to LLE before stepping up. Improving mechanics with other exercises with cueing for deeper motion . Physical Therapy Plan Next Visit Focus/Plan Next Note Type Treatment Note Next Visit Plan Cont to work on ability to go up/down stairs
--- NOTE | 2018-02-25 13:42 | PT.OTN ---
Current Diagnoses Unilateral primary osteoarthritis, left knee (02/25/18) Physical Therapy Treatment Note PT-OP-A Visit Information Start: 12/23/17 09:12 Freq: Status: Active Protocol: Document 02/25/18 12:57 [facility] (Rec: 02/25/18 13:41 [facility] [id number]) Out-Patient Physical Therapy Visit Information Visit Information Visit Type Treatment Note Visit Note 15 visits Visit Start Time 13:00 Visit Stop Time 13:50 Total Visit Minutes 50 Visit Number 05/03 PT-OP-B Current Condition Start: 12/23/17 09:12 Freq: Status: Active Protocol: Document 12/22/17 11:30 [facility] (Rec: 12/23/17 09:32 [facility] [id number]) Current Condition History of Current Condition Current Complaints L >R knee pain with planned L TKA History of Current Condition Pt presents with L knee pain with planned L TKA on 12/26 and reports she plans on getting her R side after she recovers. Pt reports she has pain in standing and household mobility that dec her ability to do activity. She she does the NUstep and treadmill for her maintenance program at [facility] but cannot walk out side d/t high level pain. Pt has to do stairs with step to pattern and down hill walking>uphill is painful. Treatment Goals Patient/Caregiver Goals walk about 30 min outside, be able to go xmas shopping, ability to do activity without pain or worrying if the activity will cause a lot of pain. Personal Factors Other Personal Factors That May Effect Pt lives in a [facility] with no Therapy/Recovery steps to enter. She has a raised toilet with 1/2 wall for UE support, walk in shower with chair and rails. She has a FWW, 4WW and cane. PT-OP-C Subjective Start: 12/23/17 09:12 Freq: Status: Active Protocol: Document 02/25/18 12:57 [facility] (Rec: 02/25/18 13:41 [facility] [id number]) OP-PT Subjective Patient Comments Patient Comments Pt reports she hasn't been able to go to [facility] maintenance program d/t schedule & holidays. PT-OP-G Mobility & Gait Start: 12/23/17 09:12 Freq: Status: Active Protocol: Document 12/22/17 11:30 [facility] (Rec: 12/23/17 09:32 [facility] [id number]) OP Gait Assessment Comments Gait Comments Pt amb with dec stance time on LLE with dec post depression & hip ext and lat lean to L with stance of LLE PT-OP-K Range of Motion Start: 12/23/17 09:12 Freq: Status: Active Protocol: Document 02/13/18 13:04 [facility] (Rec: 02/13/18 13:42 [facility] [id number]) Knee Goniometric Range of Motion Knee Measured in Degrees Left Flexion Active (degrees) 115 Flexion Passive (degrees) 0 Extension Active (degrees) 2 PT-OP-M Strength Start: 12/23/17 09:12 Freq: Status: Active Protocol: Document 02/13/18 13:04 [facility] (Rec: 02/13/18 13:42 [facility] [id number]) Hip Strength Hip Manual Muscle Testing Left Flexion (L2) 4 Good Extension (S1) 4 Good Abduction 4+ Good+ External Rotation 4 Good Internal Rotation 4+ Good+ Knee Strength Knee Manual Muscle Testing Left Flexion (S2) 4+ Good+ Extension (L3) 4+ Good+ PT-OP-Q Treatments Start: 12/23/17 09:12 Freq: Status: Active Protocol: Document 02/25/18 12:57 [facility] (Rec: 02/25/18 13:41 [facility] [id number]) Cardio Equipment Recumbent Bicycle Duration (Minutes) 6 Resistance 4 Seat Position 1 Other for ROM Gym Equipment Shuttle Recovery bilat squat Resistance 75# Shuttle Recovery Platform Unstable Reps/Time 30 unilat squat Details bilat Resistance 25# Shuttle Recovery Platform Stable Reps/Time 30 Therapeutic Exercises Standing Exercises sit to stand Standing Exercise Name from mat table at knee crease Reps/Minutes 12 Comments controlled decent lunge Standing Exercise Name lunge at rail Side bilateral Reps/Minutes 10 Comments inc foot position distance & full Gait Training Gait Activity step ups Description step downs from 4 in then 6 in step B Comments 3 reps each stairs Description 4 in steps with focus on down reciprocally Comments 5 reps with 1 rail Manual Therapy Treatment Soft Tissue Mobilization scar tissue Body Location ant knee L Mobilization Type Myofascial Release Rolling Intensity/Depth Moderate Body Position Supine Comments plunger, dycem & rolling PT-OP-R Modalities Start: 10/30/18 09:12 Freq: Status: Active Protocol: Document 02/25/18 12:57 [facility] (Rec: 02/25/18 13:41 [facility] [id number]) Hot Pack/Cold Pack Treatment Cold Pack Location L knee Patient Position Supine Treatment Duration (minutes) 10 Comments front and back PT-OP-T Assessment and Plan Start: 12/23/17 09:12 Freq: Status: Active Protocol: Document 02/25/18 12:57 [facility] (Rec: 02/25/18 13:41 [facility] [id number]) Physical Therapy Assessment Goals stairs Help Desk Administrator Goal (LTG) up/down stairs with 1 rail reciprocally without major pain inc LTG Duration 03/14/18 endurance Impairment dec endurance Longterm Goal (LTG) Pt will be able to be on her feet to prepare a big meal ( multiple hours of preparation) . LTG Duration achieved HEP Impairment HEP Short Term Goal (STG) Pt will be indep with HEP & edu prior to sx STG Duration 4 weeks- achieved Assessment Summary Assessment Pt able to do single step and step downs with 1 rail but had difficulty when transitioned to reciprocal down stairs with 1 rail. Pt required cueing for avoiding rotation & to allow wt shift fwd to other foot. Physical Therapy Plan Frequency and Duration Frequency of Treatment 1-2x/Week Duration of Treatment 1 month Plan of Care Start Date 02/13/18 Plan of Care End Date 03/16/18 Next Visit Focus/Plan Next Note Type Treatment Note Next Visit Plan focus on strength for down stairs.
--- NOTE | 2018-03-04 11:11 | PT.OTN ---
Current Diagnoses Unilateral primary osteoarthritis, left knee (03/04/18) Physical Therapy Treatment Note PT-OP-A Visit Information Start: 12/23/17 09:12 Freq: Status: Active Protocol: Document 03/04/18 10:34 [facility] (Rec: 03/04/18 11:11 [facility] [id number]) Out-Patient Physical Therapy Visit Information Visit Information Visit Type Treatment Note Visit Note 16 visits Visit Start Time 13:00 Visit Stop Time 13:50 Total Visit Minutes 50 Visit Number 06/03 PT-OP-B Current Condition Start: 12/23/17 09:12 Freq: Status: Active Protocol: Document 12/22/17 11:30 [facility] (Rec: 12/23/17 09:32 [facility] [id number]) Current Condition History of Current Condition Current Complaints L >R knee pain with planned L TKA History of Current Condition Pt presents with L knee pain with planned L TKA on 12/26 and reports she plans on getting her R side after she recovers. Pt reports she has pain in standing and household mobility that dec her ability to do activity. She she does the NUstep and treadmill for her maintenance program at [facility] but cannot walk out side d/t high level pain. Pt has to do stairs with step to pattern and down hill walking>uphill is painful. Treatment Goals Patient/Caregiver Goals walk about 30 min outside, be able to go xmas shopping, ability to do activity without pain or worrying if the activity will cause a lot of pain. Personal Factors Other Personal Factors That May Effect Pt lives in a [facility] with no Therapy/Recovery steps to enter. She has a raised toilet with 1/2 wall for UE support, walk in shower with chair and rails. She has a FWW, 4WW and cane. PT-OP-C Subjective Start: 12/23/17 09:12 Freq: Status: Active Protocol: Document 03/04/18 10:34 [facility] (Rec: 03/04/18 11:11 [facility] [id number]) OP-PT Subjective Patient Comments Patient Comments Reports she did her cardio maitenance program yesterday and did 10 min on Nustep and 7 min on bike and 8 min on treadmill. PT-OP-G Mobility & Gait Start: 12/23/17 09:12 Freq: Status: Active Protocol: Document 12/22/17 11:30 [facility] (Rec: 12/23/17 09:32 [facility] [id number]) OP Gait Assessment Comments Gait Comments Pt amb with dec stance time on LLE with dec post depression & hip ext and lat lean to L with stance of LLE PT-OP-K Range of Motion Start: 12/23/17 09:12 Freq: Status: Active Protocol: Document 02/13/18 13:04 [facility] (Rec: 02/13/18 13:42 [facility] [id number]) Knee Goniometric Range of Motion Knee Measured in Degrees Left Flexion Active (degrees) 115 Flexion Passive (degrees) 0 Extension Active (degrees) 2 PT-OP-M Strength Start: 12/23/17 09:12 Freq: Status: Active Protocol: Document 02/13/18 13:04 [facility] (Rec: 02/13/18 13:42 [facility] [id number]) Hip Strength Hip Manual Muscle Testing Left Flexion (L2) 4 Good Extension (S1) 4 Good Abduction 4+ Good+ External Rotation 4 Good Internal Rotation 4+ Good+ Knee Strength Knee Manual Muscle Testing Left Flexion (S2) 4+ Good+ Extension (L3) 4+ Good+ PT-OP-Q Treatments Start: 12/23/17 09:12 Freq: Status: Active Protocol: Document 03/04/18 10:34 [facility] (Rec: 03/04/18 11:11 [facility] [id number]) Cardio Equipment Recumbent Elliptical (Biodex) Duration (Minutes) 6 Resistance 6 Seat Position 1 Gym Equipment Shuttle Recovery bilat squat Resistance 75# Shuttle Recovery Platform Unstable Reps/Time 30 unilat squat Details bilat Resistance 37# Shuttle Recovery Platform Stable Reps/Time 30 Therapeutic Exercises Standing Exercises step ups Standing Exercise Name step up and down using LLE Reps/Minutes 15 reciprocal steps Standing Exercise Name up/down 6 in steps with 1 rail Reps/Minutes 4 reps mini squats Standing Exercise Name mini squats on bosu Equipment Used rails Reps/Minutes 30 Comments balance w/o rails 1st side step Standing Exercise Name sidestep w/ squat then squatting sidestep Resistance yellow Equipment Used rail prn Reps/Minutes 20ft ea Manual Therapy Treatment Soft Tissue Mobilization scar tissue Body Location ant knee L Mobilization Type Myofascial Release Rolling Intensity/Depth Moderate Body Position Supine Comments plunger, dycem & rolling Joint Mobilizations tibfem Direction PA FM PT-OP-R Modalities Start: 12/23/17 09:12 Freq: Status: Active Protocol: Document 03/04/18 10:34 [facility] (Rec: 03/04/18 11:11 [facility] [id number]) Hot Pack/Cold Pack Treatment Cold Pack Location L knee Patient Position Supine Treatment Duration (minutes) 10 Comments front and back PT-OP-T Assessment and Plan Start: 12/23/17 09:12 Freq: Status: Active Protocol: Document 03/04/18 10:34 [facility] (Rec: 03/04/18 11:11 [facility] [id number]) Physical Therapy Assessment Goals stairs Senior Care Goal (LTG) up/down stairs with 1 rail reciprocally without major pain inc LTG Duration 03/14/18 Assessment Summary Assessment Pt is improving with LLE strength and is now mostly limited with activities with RLE. She still has LLE weakness but is improving with ability to reciprocal stairs and squatting. Physical Therapy Plan Frequency and Duration Frequency of Treatment 1-2x/Week Duration of Treatment 1 month Plan of Care Start Date 02/13/18 Plan of Care End Date 03/16/18 Next Visit Focus/Plan Next Note Type Treatment Note Next Visit Plan Cont to advance glute & quad strength
--- NOTE | 2018-03-13 15:48 | PT.OTN ---
Current Diagnoses Unilateral primary osteoarthritis, left knee (03/13/18) Physical Therapy Treatment Note PT-OP-A Visit Information Start: 12/23/17 09:12 Freq: Status: Active Protocol: Document 03/13/18 13:10 [facility] (Rec: 03/13/18 15:48 [facility] [id number]) Out-Patient Physical Therapy Visit Information Visit Information Visit Type Treatment Note Visit Note 17 visits Visit Start Time 13:05 Visit Stop Time 13:50 Total Visit Minutes 45 Visit Number 07/03 PT-OP-B Current Condition Start: 12/23/17 09:12 Freq: Status: Active Protocol: Document 12/22/17 11:30 [facility] (Rec: 12/23/17 09:32 [facility] [id number]) Current Condition History of Current Condition Current Complaints L >R knee pain with planned L TKA History of Current Condition Pt presents with L knee pain with planned L TKA on 12/26 and reports she plans on getting her R side after she recovers. Pt reports she has pain in standing and household mobility that dec her ability to do activity. She she does the NUstep and treadmill for her maintenance program at [facility] but cannot walk out side d/t high level pain. Pt has to do stairs with step to pattern and down hill walking>uphill is painful. Treatment Goals Patient/Caregiver Goals walk about 30 min outside, be able to go xmas shopping, ability to do activity without pain or worrying if the activity will cause a lot of pain. Personal Factors Other Personal Factors That May Effect Pt lives in a [facility] with no Therapy/Recovery steps to enter. She has a raised toilet with 1/2 wall for UE support, walk in shower with chair and rails. She has a FWW, 4WW and cane. PT-OP-C Subjective Start: 12/23/17 09:12 Freq: Status: Active Protocol: Document 03/04/18 10:34 [facility] (Rec: 03/04/18 11:11 [facility] [id number]) OP-PT Subjective Patient Comments Patient Comments Reports she did her cardio maitenance program yesterday and did 10 min on Nustep and 7 min on bike and 8 min on treadmill. PT-OP-G Mobility & Gait Start: 12/23/17 09:12 Freq: Status: Active Protocol: Document 12/22/17 11:30 [facility] (Rec: 12/23/17 09:32 [facility] [id number]) OP Gait Assessment Comments Gait Comments Pt amb with dec stance time on LLE with dec post depression & hip ext and lat lean to L with stance of LLE PT-OP-K Range of Motion Start: 12/23/17 09:12 Freq: Status: Active Protocol: Document 03/13/18 13:10 [facility] (Rec: 03/13/18 15:48 [facility] [id number]) Knee Goniometric Range of Motion Knee Measured in Degrees Left Flexion Active (degrees) 117 Extension Active (degrees) 0 PT-OP-M Strength Start: 12/23/17 09:12 Freq: Status: Active Protocol: Document 03/13/18 13:10 [facility] (Rec: 03/13/18 15:48 [facility] [id number]) Hip Strength Hip Manual Muscle Testing Left Flexion (L2) 5 Normal Extension (S1) 4 Good Abduction 5 Normal External Rotation 4 Good Internal Rotation 5 Normal Knee Strength Knee Manual Muscle Testing Left Flexion (S2) 5 Normal Extension (L3) 4+ Good+ PT-OP-Q Treatments Start: 12/23/17 09:12 Freq: Status: Active Protocol: Document 03/13/18 13:10 [facility] (Rec: 03/13/18 15:48 [facility] [id number]) Cardio Equipment Recumbent Bicycle Duration (Minutes) 7 Resistance 4 Seat Position 1 Other for ROM Therapeutic Exercises Supine Exercises heel slides Supine Exercise Name KNee to chest to flex & wall slides Standing Exercises hip ext Standing Exercise Name ext Side bilateral Equipment Used L3 Reps/Minutes 2x10 mini squats Standing Exercise Name mini squats on bosu Equipment Used rails Reps/Minutes 30 Comments balance w/o rails 1st Therapeutic Activity Therapeutic Activity in/out of bathtub Name simulation & edu Manual Therapy Treatment Soft Tissue Mobilization scar tissue Body Location ant knee L Mobilization Type Myofascial Release Rolling Intensity/Depth Moderate Body Position Supine Comments plunger, dycem & rolling Joint Mobilizations tibfem Direction PA FM PT-OP-R Modalities Start: 12/23/17 09:12 Freq: Status: Active Protocol: Document 03/04/18 10:34 [facility] (Rec: 03/04/18 11:11 [facility] [id number]) Hot Pack/Cold Pack Treatment Cold Pack Location L knee Patient Position Supine Treatment Duration (minutes) 10 Comments front and back PT-OP-T Assessment and Plan Start: 12/23/17 09:12 Freq: Status: Active Protocol: Document 03/13/18 13:10 [facility] (Rec: 03/13/18 15:48 [facility] [id number]) Physical Therapy Assessment Goals stairs Shelter Goal (LTG) up/down stairs with 1 rail reciprocally without major pain inc LTG Duration achieved Assessment Summary Assessment Pt has made excellent progress with ROM and strength at this time. She is indep with HEP and is progressing with gait with treadmill with her cardio maintence program. She has met all goals and has no further concerns. Physical Therapy Plan Discharge Physical Therapy Discharge Reasons Goals Met
--- NOTE | 2018-03-13 15:48 | PT.OPDS ---
Current Diagnoses Unilateral primary osteoarthritis, left knee (03/13/18) Provider Visit Care Team Role Provider Type Monica Cook PA-C Family Provider Advanced [employer] Property [employer] Primary Care Provider Specialty: Medical Address: [address] [place] [address], [id number] Email: [email or web address] Obinna Ch MD Attending Provider Physician Specialty: Orthopedic Surgery Address: [address] [place] [address], [id number] Email: [email or web address] Visit Number Visit Number 07/03 Discharge Summary PT-OP-B Current Condition Start: 12/23/17 09:12 Freq: Status: Active Protocol: Document 12/22/17 11:30 [facility] (Rec: 12/23/17 09:32 [facility] [id number]) Current Condition History of Current Condition Current Complaints L >R knee pain with planned L TKA History of Current Condition Pt presents with L knee pain with planned L TKA on 12/26 and reports she plans on getting her R side after she recovers. Pt reports she has pain in standing and household mobility that dec her ability to do activity. She she does the NUstep and treadmill for her maintenance program at [facility] but cannot walk out side d/t high level pain. Pt has to do stairs with step to pattern and down hill walking>uphill is painful. Treatment Goals Patient/Caregiver Goals walk about 30 min outside, be able to go xmas shopping, ability to do activity without pain or worrying if the activity will cause a lot of pain. Personal Factors Other Personal Factors That May Effect Pt lives in a [facility] with no Therapy/Recovery steps to enter. She has a raised toilet with 1/2 wall for UE support, walk in shower with chair and rails. She has a FWW, 4WW and cane. PT-OP-C Subjective Start: 12/23/17 09:12 Freq: Status: Active Protocol: Document 03/04/18 10:34 [facility] (Rec: 03/04/18 11:11 [facility] [id number]) OP-PT Subjective Patient Comments Patient Comments Reports she did her cardio maitenance program yesterday and did 10 min on Nustep and 7 min on bike and 8 min on treadmill. PT-OP-G Mobility & Gait Start: 12/23/17 09:12 Freq: Status: Active Protocol: Document 12/22/17 11:30 [facility] (Rec: 12/23/17 09:32 [facility] [id number]) OP Gait Assessment Comments Gait Comments Pt amb with dec stance time on LLE with dec post depression & hip ext and lat lean to L with stance of LLE PT-OP-K Range of Motion Start: 12/23/17 09:12 Freq: Status: Active Protocol: Document 03/13/18 13:10 [facility] (Rec: 03/13/18 15:48 [facility] [id number]) Knee Goniometric Range of Motion Knee Measured in Degrees Left Flexion Active (degrees) 117 Extension Active (degrees) 0 PT-OP-M Strength Start: 12/23/17 09:12 Freq: Status: Active Protocol: Document 03/13/18 13:10 [facility] (Rec: 03/13/18 15:48 [facility] [id number]) Hip Strength Hip Manual Muscle Testing Left Flexion (L2) 5 Normal Extension (S1) 4 Good Abduction 5 Normal External Rotation 4 Good Internal Rotation 5 Normal Knee Strength Knee Manual Muscle Testing Left Flexion (S2) 5 Normal Extension (L3) 4+ Good+ PT-OP-T Assessment and Plan Start: 12/23/17 09:12 Freq: Status: Active Protocol: Document 03/13/18 13:10 [facility] (Rec: 03/13/18 15:48 [facility] [id number]) Physical Therapy Assessment Goals stairs Group Home Goal (LTG) up/down stairs with 1 rail reciprocally without major pain inc LTG Duration achieved Assessment Summary Assessment Pt has made excellent progress with ROM and strength at this time. She is indep with HEP and is progressing with gait with treadmill with her cardio maintence program. She has met all goals and has no further concerns. Physical Therapy Plan Discharge Physical Therapy Discharge Reasons Goals Met
== END 2018-03-20 11:04 ==
LOC: PHYS 13:00
PROVIDERS: Family Provider Physician Assistant; PCP Physician Assistant; Visit Provider Orthopaedic Surgery
DX: M17.12 Unilateral primary osteoarthritis, left knee (principal)
CPT/HCPCS: 97010; 97110; 97112; 97116; 97140; 97162; 97530

== ENCOUNTER 2018-05-09 22:10 | Emergency (ER) | payer OTHER, SELFPAY ==
[2017-12-26 13:35] VITALS: BMI 34.3
[2018-05-09 22:55] VITALS: BP 174/87; PULSE 74; RESP 18; TEMP 36.7; O2SAT 99; BMI 34.3
--- NOTE | 2018-05-09 23:05 | DI.RAD.S_ITS ---
PROCEDURE: XR CHEST 1V INDICATIONS: Chest discomfort after choking on food. TECHNIQUE: One view of the chest was acquired. COMPARISON: [facility], , CHEST 2 VIEW, 02/16/2017, 22:20. FINDINGS: Surgical changes and devices: None. Lungs and pleura: Lungs are clear. No pleural effusions or pneumothorax. Mediastinum: Moderate hiatal hernia. Mediastinal contours otherwise appear normal. Heart size is normal. Bones and chest wall: No suspicious bony lesions. Overlying soft tissues appear unremarkable. IMPRESSION: No acute process. Hiatal hernia. Concordant with preliminary interpretation. Dictated by: Garry Vickers M.D. on 05/10/2018 at 10:03 Approved by: Garry Vickers M.D. on 05/10/2018 at 10:04
[2018-05-10 01:04] VITALS: BP 173/85; PULSE 92; RESP 18; O2SAT 100
--- NOTE | 2018-05-10 01:16 | ED.CHESTPAIN ---
HPI - Chest Pain General Chief Complaint: Chest Pain Stated Complaint: choked on food at dinner, chest pains now Time Seen by Provider: 05/10/18 01:04 Source: patient Mode of arrival: ambulatory Limitations: no limitations History of Present Illness HPI narrative: The patient is a 72-year-old female who presents with chest discomfort. She said it started this evening when she was at a denominational function eating dinner. She was having corned beef. She felt it immediately get stuck in her throat. She went to the restroom she was able to vomit and get it up. After that she was able to continue to eat a little bit more and drink fluids. Once she got home she felt some spasming and chest discomfort. She thinks that maybe some of it is still there she is able to vomit a little bit more. As she is managing her own secretions she is tolerating fluids. However she gets centralized chest pressure. She does have a history of a hiatal hernia and lung cancer. MD complaint: chest pain Duration: intermittent Onset: during rest Pain location: substernal Quality: tightness Pain radiation: none Related Data Home Medications Medication Instructions Recorded Confirmed [VITAMIN D-3] 1,000 iu PO QDAY #0 09/09/12 12/26/17 beclomethasone dipropionate [Qvar] 1 puff INH BID #0 01/03/16 12/26/17 diphenhydramine HCl [Benadryl 25 mg PO HSP PRN #0 01/03/16 12/26/17 Allergy] [VITAMIN B COMPLEX] 1 cap PO QDAY #0 04/30/16 12/26/17 [FISH OIL] 1,200 mg PO QDAY #0 10/21/16 12/26/17 calcium carbonate [Tums Ultra] 1,000 mg PO QDAY #0 12/03/16 12/26/17 Alpha Lipoic Acid 600 mg PO .QDAY 09/29/17 12/26/17 Cinnamon 1,000 mg PO .QDAY 09/29/17 12/26/17 Clear Eyes See Rx Instructions .ROUTE .COMPLEX 09/29/17 12/26/17 Tylenol 500 mg PO .QDAY PRN 09/29/17 12/26/17 KAJAL/MAG/ZINC See Rx Instructions .ROUTE .COMPLEX 11/10/17 12/26/17 albuterol sulfate 3 ml INH Q4-6HP PRN 12/19/17 12/26/17 albuterol sulfate [Proventil HFA] 2 puff INH Q8HP PRN 12/19/17 12/26/17 Previous Rx's Medication Instructions Recorded aspirin 81 mg PO BID #30 tab 12/28/17 hydrocodone-acetaminophen 2 tab PO Q4HR PRN #60 tab 12/28/17 hydroxyzine pamoate 25 mg PO Q6HR PRN #60 cap 12/28/17 ramipril 10 mg capsule 10 mg PO BID #180 cap 04/13/18 allopurinol 100 mg tablet 100 mg PO QDAY #90 tab 05/06/18 simvastatin 40 mg tablet 40 mg PO PM #90 tab 05/06/18 metoprolol tartrate 100 mg tablet 50 mg PO BID #90 tab 05/08/18 Allergies Allergy/AdvReac Type Severity Reaction Status Date / Time oxycodone AdvReac Severe Hallucinati Verified 12/19/17 14:29 ng hydrochlorothiazide AdvReac Intermediate causes gout Verified 12/26/17 08:55 [HYDROCHLOROTHIAZIDE] adhesive tape [ADHESIVE TAPE] AdvReac Mild (AFTER Verified 12/26/17 08:55 NEEDLE BIOPSY 10/2016) REDNESS AND SMALL BLISTERS Review of Systems Review of Systems GENERAL: Denies chills, fatigue, malaise, fever, sweats, travel HEENT: Denies sinus pain, ear pain, sore throat, difficulty swallowing, neck pain RESPIRATORY: Denies dyspnea, cough, wheezing, hemoptysis, sputum. CARDIOVASCULAR: See HPI GASTROINTESTINAL: Denies nausea, vomiting, abdominal pain, diarrhea, constipation, melena. : Denies dysuria, frequency, incontinence, hematuria, urinary retention, flank pain. MUSCULOSKELETAL: Denies weakness, joint pain, or bony pain SKIN: No rash, no erythema, no pruritus NEUROLOGIC: Denies weakness, dizziness, headache, numbness, change in speech, confusion PSYCHIATRIC: No concerning psychosocial issues. 12 point review of systems is negative except for those stated above and HPI [facility] Medical History Adenocarcinoma of left lung (Acute ~11/2016) Asthma (Chronic) DJD (degenerative joint disease) of knee (Chronic) Gout (Chronic) Hyperlipemia (Chronic) Hypertension (Chronic) Osteoarthritis (Chronic) Surgical History History of lobectomy of lung (Acute ~12/2016) Hx of tubal ligation (Resolved) Social History Smoking Status: Never smoker second hand exposure: No alcohol intake: current substance use type: does not use Social History Smoking Status: Never smoker second hand exposure: No alcohol intake: current substance use type: does not use Exam Initial Vital Signs Initial Vital Signs: Vital Signs Temperature 98.1 F 05/09/18 22:55 Pulse Rate 74 05/09/18 22:55 Respiratory Rate 18 05/09/18 22:55 Blood Pressure 174/87 H 05/09/18 22:55 Pulse Oximetry 99 05/09/18 22:55 GENERAL: Well-appearing, well-nourished and in no acute distress. HEENT: Head atraumatic,EOMI, pupils reactive, face symmetric, moist mucous membranes CARDIOVASCULAR: Regular rate and rhythm without murmurs, rubs or gallops. RESPIRATORY: Breath sounds equal bilaterally, no wheezes rales or rhonchi. ABDOMEN: Soft, nontender. Normoactive bowel sounds all 4 quadrants. No guarding or rebound. EXTREMITIES: Normal range of motion, no clubbing or edema. Neurovascularly intact NEUROLOGICAL: Alert and oriented x4.Normal gait and speech. SKIN: Warm, dry, no laceration, no petechiae, no rashes or lesions. Scores HEART Score Heart Score history: Slightly Suspicious Heart Score EKG: Normal Heart Score Age: > or = 65 years old Heart Score risk factors: 1-2 risk factors Heart Score troponin: < or = to normal limit Heart Score Total: 3 Course Orders Ordered: ED Orders 05/09/18 23:05 XR chest 1V Stat 05/10/18 01:15 EKG-12 Lead Stat 05/10/18 01:24 Complete Blood Count AUTO DIFF Stat Comprehensive Metabolic Panel Stat Lipase Stat Troponin & CK Cardiac Panel Stat Discontinued Medications Glucagon (Glucagen) 1 mg IV NOW ONE Stop: 05/10/18 01:16 Last Admin: 05/10/18 01:51 Dose: 1 mg Sodium Chloride (Normal Saline 0.9%) 1,000 mls @ 1,000 mls/hr IV CONT LOREN Last Infusion: 05/10/18 02:58 Dose: 0 mls/hr Admin: 05/10/18 01:51 Dose: 1,000 mls/hr Pantoprazole Sodium (Protonix) 40 mg IV NOW ONE Stop: 05/10/18 01:16 Last Admin: 05/10/18 01:51 Dose: 40 mg Vital Signs - 8 hr 05/09/18 22:55 05/10/18 01:04 05/10/18 02:30 Temperature 98.1 F Pulse Rate 74 92 H 80 Respiratory Rate 18 18 17 Blood Pressure 174/87 H Blood Pressure [Left Arm] 173/85 H 120/48 L Pulse Oximetry 99 100 97 MDM - Chest Pain Lab Data Attestation: I reviewed the patient's lab results. Result diagrams: 05/10/18 01:24 05/10/18 01:24 Lab Results 05/10/18 05/10/18 Range/Units 01:24 01:24 WBC 13.5 H (4.5-11.0) X10^3/uL RBC 4.28 (4.0-5.2) X10^6/uL Hgb 13.2 (12.0-16.0) g/dL Hct 40.3 (36-46) % MCV 94.1 (80-100) fL MCH 30.9 (26-34) PG MCHC 32.9 (30-36) % RDW 14.8 (11.6-14.8) % Plt Count 246 (150-400) X10^3/uL Neut % (Auto) 79.6 H (50-75) % Lymph % (Auto) 10.6 L (25-40) % Deuel % (Auto) 7.7 (3-14) % Eos % (Auto) 1.7 L (2-4) % Baso % (Auto) 0.4 (0-2) % Neut # (Auto) 52220 H (6283-5457) /uL Lymph # (Auto) 1400 (9247-2276) /uL Deuel # (Auto) 1000 H (0-900) /uL Eos # (Auto) 200 (0-450) /uL Baso # (Auto) 100 (0-100) /uL Sodium 139 (137-145) mmol/L Potassium 4.2 (3.4-5.1) mmol/L Chloride 104 (98-107) mmol/L Carbon Dioxide 25 (22-32) mmol/L BUN 25 H (7-17) mg/dL Creatinine 0.90 (0.52-1.04) mg/dL Estimated GFR > 60.0 (>60) mL/min BUN/Creatinine Ratio 27.8 H (6-22) Glucose 128 H (80-110) mg/dL Calcium 9.7 (8.4-10.2) mg/dL Total Bilirubin 0.5 (0.2-1.3) mg/dL AST 25 (14-36) IU/L ALT 27 (9-52) IU/L Alkaline Phosphatase 84 (38-126) U/L Total Creatine Kinase 53 (30-135) U/L CK-MB (CK-2) TNP CK-MB (CK-2) Rel Index TNP Troponin I < 0.012 (0.01-0.034) ng/mL Total Protein 7.6 (6.3-8.2) g/dL Albumin 4.3 (3.5-5.0) g/dL Globulin 3.3 (1.7-4.1) g/dL Albumin/Globulin Ratio 1.3 (1.0-2.8) Lipase 68 (23-300) U/L Imaging Data Chest x-ray: Attestation: I personally reviewed and interpreted this imaging study as follows: My impression: No acute cardiopulmonary process ECG Data Attestation: I personally reviewed and interpreted this ECG as follows: Prior ECG tracings: available for review Interpretation: Normal sinus rhythm rate 72 MN interval [address] changes no T-wave inversions similar to prior EKG. MDM Narrative Medical decision making narrative: At this time patient is overall feeling better. She is able to tolerate fluids and solids. This is likely related to esophageal spasm however is still recommended outpatient cardiac workup. Troponin EKG negative. Discharge Plan Departure Patient Disposition: Home Clinical Impression: Spasm of esophagus, Atypical chest pain Discharge Date/Time: 05/10/18 03:01 Interventions: ED Discharge Assessment Last Done: 05/10/18 02:59 Instructions: DI for Atypical Chest Pain, Steakhouse Syndrome Activity Restrictions/Additional Instructions: *You have been diagnosed with esophageal spasm, atypical chest pain *What to do: May require further cardiac testing for EGD to assess esophagus *Continue to take medications as directed *Follow up with your primary care provider in 2-3 days *Return to ER if you should have new or worsening chest pain, difficulty swelling liquids or any new, worsening or concerning symptoms Prescriptions: No Action Clear Eyes See Patient Comments .ROUTE .COMPLEX RF: 0 Cinnamon 1,000 mg PO .QDAY RF: 0 Alpha Lipoic Acid 600 mg PO .QDAY RF: 0 Tylenol 500 mg PO .QDAY PRN (Reason: pain) RF: 0 KAJAL/MAG/ZINC See Patient Comments .ROUTE .COMPLEX RF: 0 [VITAMIN D-3] 1,000 iu PO QDAY Qty: 0 RF: 0 diphenhydramine HCl [Benadryl Allergy] 25 MG tablet 25 mg PO HSP PRN (Reason: Sleep) Qty: 0 RF: 0 beclomethasone dipropionate [Qvar] 80 MCG/PUFF aerosol 1 puff INH BID Qty: 0 RF: 0 [VITAMIN B COMPLEX] 1 cap PO QDAY Qty: 0 RF: 0 [FISH OIL] 1,200 mg PO QDAY Qty: 0 RF: 0 calcium carbonate [Tums Ultra] 1,000 MG tablet,chewable 1,000 mg PO QDAY Qty: 0 RF: 0 ramipril 10 mg capsule 10 mg PO BID Qty: 180 RF: 0 allopurinol 100 mg tablet 100 mg PO QDAY Qty: 90 RF: 3 simvastatin [Zocor] 40 mg tablet 40 mg PO PM Qty: 90 RF: 3 metoprolol tartrate 100 mg tablet 50 mg PO BID Qty: 90 RF: 3 albuterol sulfate 2.5 MG/3 ML solution for nebulization 3 ml INH Q4-6HP PRN (Reason: Asthma) RF: 0 albuterol sulfate [Proventil HFA] 90 mcg/actuation HFA aerosol inhaler 2 puff INH Q8HP PRN (Reason: asthma) RF: 0 hydrocodone-acetaminophen 5-325 mg Tablet 2 tab PO Q4HR PRN (Reason: Pain, Severe (7-10)) Qty: 60 RF: 0 aspirin 81 mg Tablet,Delayed Release (Dr/Ec) 81 mg PO BID Qty: 30 RF: 0 hydroxyzine pamoate 25 mg Capsule 25 mg PO Q6HR PRN (Reason: spasms) Qty: 60 RF: 0 Referrals: Monica Cook PA-C [Primary Care Provider] -
[2018-05-10 01:34] LABS: Add Manual Diff / Slide Review NO; Basophils Absolute Auto 100 /uL (0-100); Basophils Percent Auto 0.4 % (0-2); Eosinophils Absolute Auto 200 /uL (0-450); Eosinophils Percent Auto 1.7 % (2-4); Hematocrit 40.3 % (36-46); Hemoglobin 13.2 g/dL (12.0-16.0); Lymphocytes Absolute Auto 1400 /uL (1100-4500); Lymphocytes Percent Auto 10.6 % (25-40); Mean Corpuscular HGB Conc 32.9 % (30-36); Mean Corpuscular Hemoglobin 30.9 PG (26-34); Mean Corpuscular Volume 94.1 fL (80-100); Monocytes Absolute Auto 1000 /uL (0-900); Monocytes Percent Auto 7.7 % (3-14); Neutrophils Absolute Auto 10700 /uL (1500-7000); Neutrophils Percent Auto 79.6 % (50-75); Platelet Count 246 X10^3/uL (150-400); Red Blood Cell Count 4.28 X10^6/uL (4.0-5.2); Red Cell Distribution Width 14.8 % (11.6-14.8); White Blood Cell Count 13.5 X10^3/uL (4.5-11.0)
[2018-05-10 01:42] LABS: Alanine Aminotransferase 27 IU/L (9-52); Albumin 4.3 g/dL (3.5-5.0); Albumin Globulin Ratio 1.3 (1.0-2.8); Alkaline Phosphatase 84 U/L (38-126); Aspartate Aminotransferase 25 IU/L (14-36); BUN Creatinine Ratio 27.8 (6-22); Bilirubin Total 0.5 mg/dL (0.2-1.3); Blood Urea Nitrogen 25 mg/dL (7-17); Calcium 9.7 mg/dL (8.4-10.2); Carbon Dioxide 25 mmol/L (22-32); Chloride 104 mmol/L (98-107); Creatine Kinase 53 U/L (30-135); Estimated Glomerular Filt Rate > 60.0 mL/min (>60); Globulin 3.3 g/dL (1.7-4.1); Glucose 128 mg/dL (80-110); HEMOLYSIS < 15 (0-50); Lipase 68 U/L (23-300); Potassium 4.2 mmol/L (3.4-5.1); Sodium 139 mmol/L (137-145); Total Protein 7.6 g/dL (6.3-8.2)
[2018-05-10] MEDS: GLUCAGON,HUMAN RECOMBINANT 1 MG/ML VIAL IV (01:51)
[2018-05-10] MEDS: SODIUM CHLORIDE 0.9% 1,000 ML 1000 ML IV (01:51)
[2018-05-10] MEDS: PANTOPRAZOLE 40 MG VIAL IV (01:51)
[2018-05-10 01:54] LABS: Troponin I < 0.012 ng/mL (0.01-0.034)
[2018-05-10 02:30] VITALS: BP 120/48; PULSE 80; RESP 17; O2SAT 97
== END 2018-05-10 03:01 | disposition home or self-care (01) ==
PROVIDERS: Emergency Provider Emergency Medicine; Family Provider Physician Assistant; PCP Physician Assistant
DX: K22.4 Dyskinesia of esophagus (principal); R07.89 Other chest pain
CPT/HCPCS: 36591; 71045; 80053; 82550; 83690; 84484; 85025; 93005; 96361; 96374; 96375; 99283; 99285; C9113; J1610

== ENCOUNTER → 2018-05-15 10:19 | Outpatient (CLI) | payer OTHER, SELFPAY ==
[2017-12-26 13:35] VITALS: BMI 34.3
[2018-05-15 11:06] LABS: Hemoglobin A1C% w Est Avg Glu 5.9 % (4.0-6.0)
[2018-05-15 11:14] LABS: Creatinine Urine Random 144.3 mg/dL
[2018-05-15 11:19] LABS: Microalbumi Creatinin Ratio Ur 36.7 ug/mg CR (<30); Microalbumin Urine Random 5.3 mg/dL (0-1.6)
[2018-05-15 12:35] LABS: Cholesterol 124 mg/dL (140-199); HDL Cholesterol 50 mg/dL (40-60); LDL Cholesterol Calculated 54 mg/dL (<100); Triglycerides 100 mg/dL (35-150)
== END ==
PROVIDERS: PCP Physician Assistant; Visit Provider Physician Assistant
DX: E78.5 Hyperlipidemia, unspecified (principal); I10 Essential (primary) hypertension; R73.01 Impaired fasting glucose; M10.9 Gout, unspecified
CPT/HCPCS: 36415; 80061; 82043; 82570; 83036; 84550

== ENCOUNTER → 2018-08-20 13:10 | Outpatient (CLI) | payer OTHER, SELFPAY ==
[2017-12-26 13:35] VITALS: BMI 34.3
[2018-08-20 13:46] LABS: Hematocrit 41.5 % (36-46); Hemoglobin 13.9 g/dL (12.0-16.0)
[2018-08-20 13:58] LABS: HEMOLYSIS < 15 (0-50); Iron 91 ug/dL (37-170)
[2018-08-20 14:09] LABS: Percent Iron Saturation 24 % (15-50); Total Iron Binding Capacity 381 ug/dL (265-497); Transferrin 315 mg/dL (206-381)
[2018-08-20 15:38] LABS: BUN Creatinine Ratio 24.4 (6-22); Blood Urea Nitrogen 22 mg/dL (7-17); Calcium 9.4 mg/dL (8.4-10.2); Carbon Dioxide 31 mmol/L (22-32); Chloride 102 mmol/L (98-107); Creatinine Urine Random 89.3 mg/dL; Estimated Glomerular Filt Rate > 60.0 mL/min (>60); Glucose 82 mg/dL (80-110); HEMOLYSIS < 15 (0-50); Potassium 4.8 mmol/L (3.4-5.1); Protein (Total) Urine Random 11 mg/dL (0-12); Protein Creatinine Ratio Urine 0.12 GRAM/24H; Sodium 142 mmol/L (137-145)
[2018-08-20 16:12] LABS: Ferritin 17.3 ng/mL (11.1-264)
[2018-08-22 15:31] LABS: Parathyroid Hormone Int 23 pg/mL (14-64)
== END ==
PROVIDERS: PCP Physician Assistant; Visit Provider Student in an Organized Health Care Education/Training Program
DX: N05.9 Unspecified nephritic syndrome with unspecified morphologic changes (principal); D50.0 Iron deficiency anemia secondary to blood loss (chronic); D64.9 Anemia, unspecified; N25.81 Secondary hyperparathyroidism of renal origin; R80.9 Proteinuria, unspecified
CPT/HCPCS: 36415; 80048; 82570; 82728; 83540; 83550; 83970; 84156; 85014; 85018

== ENCOUNTER → 2018-10-15 11:29 | Outpatient (CLI) | payer OTHER, SELFPAY ==
[2017-12-26 13:35] VITALS: BMI 34.3
--- NOTE | 2018-10-15 | DI.MG.S_ITS ---
BILATERAL DIGITAL SCREENING MAMMOGRAM 3D/2D WITH CAD: 10/15/2018 CLINICAL: Routine screening. Family history of breast cancer. Comparison is made to exams dated: 10/30/2016 mammogram, 10/27/2014 mammogram, and 09/25/2012 mammogram - [facility]. There are scattered fibroglandular elements in both breasts. Current study was also evaluated with a Computer Aided Detection (CAD) system. There are benign post operative findings in the left breast. There also are benign calcifications in both breasts. No significant masses, calcifications, or other findings are seen in either breast. There has been no significant interval change. IMPRESSION: There is no mammographic evidence of malignancy. A 1 year screening mammogram is recommended. This exam was interpreted at Station ID: [id number]. NOTE: For mammograms, a report in lay terms will be sent to the patient. Approximately 15% of breast malignancies will not be visualized mammographically. In the management of a palpable breast mass, a negative mammogram must not discourage biopsy of a clinically suspicious lesion. Electronically Signed By: Aries bell/elijah:10/15/2018 12:26:10 letter sent: Normal Exam ACR BI-RADS Category 2: Benign Finding(s) 3342F
== END ==
PROVIDERS: PCP Physician Assistant; Visit Provider Physician Assistant
DX: Z12.31 Encounter for screening mammogram for malignant neoplasm of breast (principal); Z80.3 Family history of malignant neoplasm of breast
CPT/HCPCS: 77063; 77067

== ENCOUNTER → 2018-12-07 09:28 | Outpatient (CLI) | payer OTHER, SELFPAY ==
[2017-12-26 13:35] VITALS: BMI 34.3
[2018-12-07 10:51] LABS: Hemoglobin A1C% w Est Avg Glu 5.7 % (4.0-6.0)
[2018-12-07 11:08] LABS: Creatinine Urine Random 184.6 mg/dL
[2018-12-07 11:12] LABS: Alanine Aminotransferase 25 IU/L (9-52); Albumin 4.3 g/dL (3.5-5.0); Albumin Globulin Ratio 1.4 (1.0-2.8); Alkaline Phosphatase 79 U/L (38-126); Aspartate Aminotransferase 30 IU/L (14-36); Bilirubin Total 0.6 mg/dL (0.2-1.3); Blood Urea Nitrogen 20 mg/dL (7-17); Calcium 9.4 mg/dL (8.4-10.2); Carbon Dioxide 28 mmol/L (22-32); Chloride 103 mmol/L (98-107); Cholesterol 125 mg/dL (140-199); Estimated Glomerular Filt Rate > 60.0 mL/min (>60); Glucose 119 mg/dL (80-110); HDL Cholesterol 52 mg/dL (40-60); HEMOLYSIS < 15 (0-50); LDL Cholesterol Calculated 50 mg/dL (<100); Potassium 4.6 mmol/L (3.4-5.1); Sodium 139 mmol/L (137-145); Total Protein 7.3 g/dL (6.3-8.2); Triglycerides 117 mg/dL (35-150); Uric Acid 5.2 mg/dL (2.5-6.2)
[2018-12-07 11:13] LABS: Microalbumi Creatinin Ratio Ur 45.5 ug/mg CR (<30); Microalbumin Urine Random 8.4 mg/dL (0-1.6)
== END ==
PROVIDERS: PCP Physician Assistant; Visit Provider Physician Assistant
DX: E78.5 Hyperlipidemia, unspecified (principal); I10 Essential (primary) hypertension; M10.9 Gout, unspecified; N18.2 Chronic kidney disease, stage 2 (mild); R73.01 Impaired fasting glucose
CPT/HCPCS: 36415; 80053; 80061; 82043; 82570; 83036; 84550

== ENCOUNTER → 2019-04-16 11:48 | Outpatient (CLI) | payer OTHER, SELFPAY ==
[2017-12-26 13:35] VITALS: BMI 34.3
[2019-04-16 12:37] LABS: Hematocrit 41.4 % (36-46); Hemoglobin 13.8 g/dL (12.0-16.0)
[2019-04-16 13:23] LABS: Blood Urea Nitrogen 16 mg/dL (7-17); Carbon Dioxide 28 mmol/L (22-32); Chloride 103 mmol/L (98-107); Estimated Glomerular Filt Rate > 60.0 mL/min (>60); Glucose 100 mg/dL (80-110); HEMOLYSIS < 15 (0-50); Potassium 4.9 mmol/L (3.4-5.1); Sodium 141 mmol/L (137-145)
[2019-04-16 15:23] LABS: Creatinine Urine Random 153.2 mg/dL; Protein (Total) Urine Random 21 mg/dL (0-12); Protein Creatinine Ratio Urine 0.13 GRAM/24H
[2019-04-20 13:51] LABS: Parathyroid Hormone Int 66 pg/mL (14-64)
== END ==
PROVIDERS: PCP Physician Assistant; Referring Provider Student in an Organized Health Care Education/Training Program; Visit Provider Student in an Organized Health Care Education/Training Program
DX: N05.9 Unspecified nephritic syndrome with unspecified morphologic changes (principal); D64.9 Anemia, unspecified; N25.81 Secondary hyperparathyroidism of renal origin; R80.9 Proteinuria, unspecified
CPT/HCPCS: 36415; 80048; 82570; 83970; 84156; 85014; 85018

== ENCOUNTER → 2019-11-26 10:13 | Outpatient (CLI) | payer OTHER, SELFPAY ==
[2017-12-26 13:35] VITALS: BMI 34.3
[2019-11-26 11:08] LABS: Appearance Urine UA CLEAR; Bilirubin Urine UA NEGATIVE (NEGATIVE); Color Urine UA YELLOW; Glucose Urine UA NEGATIVE (Negative); Ketones Urine UA NEGATIVE (NEGATIVE); Leukocyte Esterase Urine UA TRACE (NEGATIVE); Nitrite Urine UA NEGATIVE (Negative); Occult Blood Urine UA NEGATIVE (Negative); Protein Urine UA NEGATIVE (Negative); Urobilinogen Urine UA 0.2 E.U./dL (0.2); pH Urine UA 6.5 (4.5-8.0)
[2019-11-26 11:09] LABS: Bacteria Urine None Seen; RBC Urine None Seen (0-5/HPF)
[2019-11-26 11:11] LABS: Add Manual Diff / Slide Review NO; Basophils Absolute Auto 0 /uL (0-100); Basophils Percent Auto 0.7 % (0-2); Eosinophils Absolute Auto 300 /uL (0-450); Eosinophils Percent Auto 4.9 % (2-4); Hematocrit 39.8 % (36-46); Hemoglobin 13.3 g/dL (12.0-16.0); Lymphocytes Absolute Auto 1400 /uL (1100-4500); Lymphocytes Percent Auto 23.3 % (25-40); Mean Corpuscular HGB Conc 33.6 % (30-36); Mean Corpuscular Hemoglobin 32.1 PG (26-34); Mean Corpuscular Volume 95.6 fL (80-100); Monocytes Absolute Auto 700 /uL (0-900); Monocytes Percent Auto 11.2 % (3-14); Neutrophils Absolute Auto 3500 /uL (1500-7000); Neutrophils Percent Auto 59.9 % (50-75); Platelet Count 222 X10^3/uL (150-400); Red Blood Cell Count 4.16 X10^6/uL (4.0-5.2); Red Cell Distribution Width 13.8 % (11.6-14.8); White Blood Cell Count 5.9 X10^3/uL (4.5-11.0)
[2019-11-26 11:23] LABS: Alanine Aminotransferase 19 IU/L (<35); Albumin 4.1 g/dL (3.5-5.0); Albumin Globulin Ratio 1.3 (1.0-2.8); Alkaline Phosphatase 72 U/L (38-126); Aspartate Aminotransferase 30 IU/L (14-36); BUN Creatinine Ratio 20.7 (6-22); Bilirubin Total 0.5 mg/dL (0.2-1.3); Blood Urea Nitrogen 17 mg/dL (7-17); Carbon Dioxide 33 mmol/L (22-32); Chloride 102 mmol/L (98-107); Cholesterol 118 mg/dL (140-199); Estimated Glomerular Filt Rate > 60.0 mL/min (>60); Globulin 3.2 g/dL (1.7-4.1); Glucose 115 mg/dL (80-110); HDL Cholesterol 44 mg/dL (40-60); HEMOLYSIS < 15 (0-50); LDL Cholesterol Calculated 52 mg/dL (<100); Potassium 4.4 mmol/L (3.4-5.1); Sodium 139 mmol/L (137-145); Total Protein 7.3 g/dL (6.3-8.2); Triglycerides 109 mg/dL (35-150)
[2019-11-26 11:32] LABS: Amorphous Sediment Urine 2+; Culture Indicated Urine Specimen Cultured; Squamous Epithelial Cell Urine 1-5 /HPF (0-5/HPF); WBC Urine 0-1/HPF (0-5/HPF)
== END ==
PROVIDERS: PCP Registered Nurse; Referring Provider Registered Nurse; Visit Provider Registered Nurse
DX: Z00.00 Encounter for general adult medical examination without abnormal findings (principal); I10 Essential (primary) hypertension; E78.5 Hyperlipidemia, unspecified
CPT/HCPCS: 36415; 80053; 80061; 81003; 81015; 85025; 87086

== ENCOUNTER → 2019-12-07 15:13 | Outpatient (CLI) | payer OTHER, SELFPAY ==
[2017-12-26 13:35] VITALS: BMI 34.3
== END ==
PROVIDERS: PCP Registered Nurse; Referring Provider Registered Nurse; Visit Provider Registered Nurse
DX: M85.851 Other specified disorders of bone density and structure, right thigh (principal); Z78.0 Asymptomatic menopausal state; Z85.3 Personal history of malignant neoplasm of breast; Z82.62 Family history of osteoporosis
CPT/HCPCS: 77080

== ENCOUNTER → 2019-12-18 13:42 | Outpatient (CLI) | payer OTHER, SELFPAY ==
[2017-12-26 13:35] VITALS: BMI 34.3
[2019-12-20 02:00] LABS: COVID19 Sendout Not Detected (Not Detect)
== END ==
PROVIDERS: PCP Registered Nurse; Visit Provider Student in an Organized Health Care Education/Training Program
DX: Z11.59 Encounter for screening for other viral diseases (principal)
CPT/HCPCS: 87635

== ENCOUNTER 2019-12-21 11:58 | Day surgery (SDC) | payer OTHER, SELFPAY ==
[2017-12-26 13:35] VITALS: BMI 34.3
--- NOTE | 2019-12-21 | PATH_ITS ---
[facility] Accession Number: [id number] . 01 Material submitted: . PART A: colon - POLYP AT 100CM PART B: colon - POLYP AT 60CM . 02 Diagnosis: A. Colon Polyp at 100 cm, Biopsy: Tubular adenoma. . B. Colon Polyp at 60 cm, Biopsy: Tubular adenoma. MRV 12/24/2019 1232 Local . 02 Electronically signed: . Claudio Gonzales MD, PhD, Pathologist NPI- [id number] . 01 Gross description: . A. Specimen A is received in formalin, labeled polyp at 100 cm and consists of two dias fragments of soft tissue, measuring 0.5 x 0.4 x 0.2 cm in aggregate. The specimen is entirely submitted in cassette A1. B. Specimen B is received in formalin, labeled polyp at 60 cm and consists of a 0.5 x 0.4 x 0.3 cm dias fragment of soft tissue, which is entirely submitted in cassette B1. ([id number]) /[facility] 12/22/2019 1634 Local . 02 Pathologist provided ICD-10: D12.6 . 02 CPT . 104570, 174011 Performed at: 01 [facility] [address], [place], [place] [id number] MD Shaq Horton MD Phone: [phone] Performed at: 02 [facility] [address] [place], [place] [id number] MD Annabelle Heredia MD Phone: [phone]
[2019-12-21 12:35] VITALS: BP 132/73; PULSE 66; RESP 17; TEMP 37.1; O2SAT 98; BMI 36.1
[2019-12-21] MEDS: SODIUM CHLORIDE 0.9% 1,000 ML 200 ML IV (12:45)
--- NOTE | 2019-12-21 12:56 | PM.HP.1 ---
History of Present Illness History of Present Illness Date Patient Seen: 12/21/19 Time Patient Seen: 12:57 Chief complaint: SCREENING COLONOSCOPY Narrative: This is a 73-year-old woman with history of colonoscopy about 20 years ago. She says she thinks it was fine, but knows she is overdue for follow-up colonoscopy. Preop her sister recently had a colonoscopy in which she was found to have about 10 polyps which were all benign. She denies any other known family history of colon cancers or colon polyps. She denies any personal history of melena or hematochezia. She denies any unexplained weight loss or unexplained abdominal pain. She has some hypertension, but denies having had any other cardiac abnormalities. Denies any heart attack or stroke. ROS: Patient reports some urinary incontinence and lower extremity edema. Thirteen system review is otherwise negative other than as mentioned below and in HPI. PE: GENERAL: Well groomed and cooperative. Appears stated age. Answers questions promptly and appropriately. Vital signs noted. HENT: Normocephalic, atraumatic. Hearing intact. EYES: Conjunctiva pink, sclera white, no periorbital swelling. CARDIOVASCULAR: Regular rate. Trace pedal edema. RESPIRATORY: Non-tachypneic, breathing comfortably on room air. GASTROINTESTINAL: Abdomen soft and non-distended GENITALURINARY: No flank tenderness. MUSCULOSKELETAL: Equal tone and mass bilaterally. SKIN: Warm, dry, soft, appropriate color for ethnicity. No other lesions, rashes, or wounds. NEURO: Alert and Oriented X 3. No gross sensory deficits, or cognitive issues. PSYCH: Appropriate affect and mood. Patient History Medical History Adenocarcinoma of left lung (Acute ~11/2016) Asthma (Chronic) DJD (degenerative joint disease) of knee (Chronic) Gout (Chronic) Hyperlipemia (Chronic) Hypertension (Chronic) Osteoarthritis (Chronic) Surgical History History of lobectomy of lung (Acute ~12/2016) Hx of tubal ligation (Resolved) Family & Social History Social History: household members spouse Tobacco & Substance use: Smoking Status Never smoker alcohol intake current alcohol intake frequency holiday/special occasion Substance Use Type does not use Meds Home Medications and Allergies Home Medications Medication Instructions Recorded Confirmed Type [VITAMIN D-3] 1,000 iu PO QDAY #0 09/09/12 12/02/19 History [FISH OIL] 1,200 mg PO QDAY #0 10/21/16 12/02/19 History calcium carbonate [Tums Ultra] 1,000 mg PO QDAY #0 12/03/16 12/02/19 History Alpha Lipoic Acid 600 mg PO .QDAY 09/29/17 12/02/19 History Cinnamon 1,000 mg PO .QDAY 09/29/17 12/02/19 History Clear Eyes See Rx Instructions .ROUTE .COMPLEX 09/29/17 12/02/19 History Tylenol 500 mg PO .QDAY PRN 09/29/17 12/21/19 History ramipril 10 mg capsule 10 mg PO BID #180 cap 01/04/19 12/21/19 Rx allopurinol 100 mg tablet 100 mg PO DAILY #90 tab 05/07/19 12/21/19 Rx simvastatin 40 mg tablet 40 mg PO BEDTIME #90 tab 05/07/19 12/21/19 Rx albuterol sulfate 90 mcg/actuation 2 puff INHALATION Q4-6H PRN #18 11/15/19 12/21/19 Rx aerosol inhaler gram ciclesonide 80 mcg/actuation 1 puff INHALATION BID #6.1 gram 11/15/19 12/02/19 Rx aerosol inhaler metoprolol tartrate 100 mg tablet See Rx Instructions .ROUTE 11/15/19 12/02/19 Rx .COMPLEX #90 tab ciclesonide [Alvesco] 1 puff INHALATION 12/21/19 History Allergies Allergy/AdvReac Type Severity Reaction Status Date / Time oxycodone AdvReac Severe Hallucinati Verified 12/21/19 12:13 ng hydrochlorothiazide AdvReac Intermediate causes gout Verified 12/21/19 12:13 [HYDROCHLOROTHIAZIDE] adhesive tape [ADHESIVE TAPE] AdvReac Mild (AFTER Verified 12/21/19 12:13 NEEDLE BIOPSY 10/2016) REDNESS AND SMALL BLISTERS Exam Vital Signs (past 8 hours): - 12/21/19 12:35 Temperature 98.8 F Pulse Rate 66 Respiratory Rate 17 Blood Pressure 132/73 Pulse Oximetry 98 Oxygen Delivery Method Room Air Assessment & Plan Assessment and plan (1) Family history of colonic polyps: Status: Acute Assessment & Plan narrative: Risks and benefits of screening colonoscopy and possible polypectomy were discussed with the patient including risk of bleeding, perforation, need for additional procedures, risks of anesthesia. The patient desires to proceed with the colonoscopy procedure. COVID-19 COVID-19 status: Negative Result date/Date tested (Pos, Neg/Pending): 12/18/19 Time Spent With Patient Time with patient: 15-24 minutes Quality VTE Deep Vein Thrombosis/Pulmonary Embolism Present on Admission: No
--- NOTE | 2019-12-21 13:01 | P.OP.ENDO_ITS ---
Operative Date/Time/Diagnoses Date of procedure: 12/21/19 Time of procedure: 13:01 Pre-op diagnosis: Family history of colon polyps, over 10 years since last screening colonoscopy Post-op diagnosis: other (Two small polyps, moderate diverticulosis in the sigmoid colon) Procedure & Clinicians Study performed: Colonoscopy, procedural sedation performed by the endoscopist Polypectomy x2 using Jumbo forceps Same procedure as scheduled: Yes Indications: Family history of colon polyps, greater than 10 years since the last screening colonoscopy Surgeon: Mary Anne Arriola Procedure Notes SCOAP/Timeout: Performed Procedure in detail: The patient was brought to the room and placed in left lateral decubitus position with all bony prominences padded. A time-out was performed and then the patient was given procedural sedation starting with 2 mg of Versed and 100 mcg of fentanyl. Vitals were monitored throughout the procedure and remained stable. Once adequately sedated, the procedure was begun. A rectal exam was performed revealing no abnormalities. The colonoscope was then introduced to the rectum and advanced to the cecum in the usual fashion. The cecum was identified by the appendiceal orifice, the mucosal tri-fold, and the ileocecal valve. The scope was then retracted while rotating side to side and examining each mucosal fold. Two 5 mm polyps were found, 1 at 100 cm, and 1 at 60 cm. Both were removed with Jumbo forceps. Moderate diverticulosis was seen in the descending colon. No signs of diverticulitis. At the conclusion of the procedure retroflexion was performed and moderate grade 2 internal hemorrhoids without stigmata of bleeding were seen. The scope was then withdrawn from the rectum the procedure was concluded. The patient tolerated the procedure well and was transferred to the PACU in stable condition. Scope withdrawal time: 9 Sedation minutes: 21 Findings: diverticulosis and polyp Specimen(s): other (Two polyps) Complications: none Impression: Two small polyps, likely benign. Moderate diverticulosis in the s igmoid and descending colon. Post-procedure Recommendations: Colonscopy in 10 years (Depending on pathology results) Follow up: as needed Disposition: PACU
[2019-12-21] MEDS: MIDAZOLAM 5 MG/5 ML VIAL IV (13:07)
[2019-12-21] MEDS: fentaNYL 250 MCG/5 ML INJ IV (13:07)
[2019-12-21 13:33] VITALS: BP 129/60; PULSE 53; RESP 9; TEMP 36.6; O2SAT 98
[2019-12-21 13:38] VITALS: BP 128/58; PULSE 56; RESP 16; O2SAT 99
[2019-12-21 13:44] VITALS: BP 134/56; PULSE 60; RESP 16; TEMP 36.7; O2SAT 99
[2019-12-21 13:55] VITALS: BP 109/62; PULSE 57; RESP 15; TEMP 36.1; O2SAT 100
[2019-12-21 14:10] VITALS: BP 122/64; PULSE 56; RESP 15; TEMP 36.2; O2SAT 100
== END 2019-12-21 14:19 | disposition home or self-care (01) ==
PROVIDERS: PCP Registered Nurse; Referring Provider Surgery; Visit Provider Surgery
PROC: 0DJD8ZZ Inspection of Lower Intestinal Tract, Via Natural or Artificial Opening Endoscopic (ICD-10-PCS; CPT 45378; principal; 2019-12-21 13:00)
DX: Z12.11 Encounter for screening for malignant neoplasm of colon (principal); Z83.71 Family history of colonic polyps; K57.30 Diverticulosis of large intestine without perforation or abscess without bleeding; J45.909 Unspecified asthma, uncomplicated; E78.5 Hyperlipidemia, unspecified; I10 Essential (primary) hypertension; D12.6 Benign neoplasm of colon, unspecified
CPT/HCPCS: 45380; 99152; J2250; J3010

== ENCOUNTER → 2020-05-15 09:53 | Outpatient (CLI) | payer OTHER, SELFPAY ==
[2017-12-26 13:35] VITALS: BMI 34.3
[2020-05-15 11:10] LABS: BUN Creatinine Ratio 25.3 (6-22); Blood Urea Nitrogen 20 mg/dL (7-17); Calcium 9.2 mg/dL (8.4-10.2); Carbon Dioxide 26 mmol/L (22-32); Chloride 103 mmol/L (98-107); Estimated Glomerular Filt Rate > 60.0 mL/min (>60); Glucose 106 mg/dL (80-110); HEMOLYSIS < 15 (0-50); Potassium 4.5 mmol/L (3.4-5.1); Sodium 137 mmol/L (137-145)
[2020-05-15 11:13] LABS: Hematocrit 39.8 % (36-46); Hemoglobin 13.4 g/dL (12.0-16.0)
[2020-05-15 15:16] LABS: Creatinine Urine Random 93.9 mg/dL; Protein (Total) Urine Random 10 mg/dL (0-12)
[2020-05-16 07:09] LABS: Parathyroid Hormone Int 59 pg/mL (15-65)
== END ==
PROVIDERS: PCP Registered Nurse; Referring Provider Student in an Organized Health Care Education/Training Program; Visit Provider Student in an Organized Health Care Education/Training Program
DX: N05.9 Unspecified nephritic syndrome with unspecified morphologic changes (principal); D64.9 Anemia, unspecified; R80.9 Proteinuria, unspecified; N25.81 Secondary hyperparathyroidism of renal origin
CPT/HCPCS: 36415; 80048; 82570; 83970; 84156; 85014; 85018

== ENCOUNTER → 2020-10-14 11:56 | Outpatient (CLI) | payer OTHER, SELFPAY ==
[2020-05-16 15:33] VITALS: BMI 34.3
[2020-10-14 13:20] LABS: COVID19 -Nasal RAPID Negative (Negative)
== END ==
PROVIDERS: PCP Registered Nurse; Referring Provider Physician Assistant; Visit Provider Physician Assistant
DX: Z20.822 Contact with and (suspected) exposure to COVID-19 (principal); Z01.812 Encounter for preprocedural laboratory examination
CPT/HCPCS: 87635

== ENCOUNTER 2020-10-17 06:24 | Day surgery (SDC) | payer OTHER, SELFPAY ==
[2020-05-16 15:33] VITALS: BMI 34.3
[2020-10-17] MEDS: PROPARACAINE 0.5% OPHTH SOL 2 DROPS EYE-OP (06:54)
[2020-10-17 06:59] VITALS: BP 169/86; PULSE 69; RESP 20; TEMP 36.3; O2SAT 99; BMI 34.3
[2020-10-17] MEDS: CATARACT EYE COMPOUND (10 DROPS/SYRINGE) 3 DROPS EYE-OP (07:06)
--- NOTE | 2020-10-17 07:37 | PM.PREOP ---
Pre-operative Note Interval Note History & Physical reviewed/Exam performed by Physician: Yes Changes to H&P: No
--- NOTE | 2020-10-17 07:37 | PM.OP.1 ---
Operative Date/Time/Diagnoses Pre-op diagnosis: Nuclear cataract right eye Procedure & Clinicians Procedure: Cataract Surgery Same procedure as scheduled: Yes Surgeon: Obinna Hirsch Anesthesia Type: MAC +/- and Sedation Operative Notes Procedure in detail: Patient brought to the operating suite. Tetracaine drops placed in the right eye. Patient was prepped and draped in sterile manner. Wire lid speculum was placed in the eye. Betadine drops were placed on the eye. This was irrigated. Lidocaine jelly was placed on the eye. A paracentesis port was created with a side-port blade. 0.1 mL 1% preservative free lidocaine was injected into the anterior chamber. The anterior chamber was deepened with viscoelastic. 2.6 mm keratome was used to create a temporal clear corneal incision. Cystotome and Utrata forceps were used to create continuous tear capsulorrhexis. Balanced salt solution was used to hydro dissect the nucleus. The phacoemulsification handpiece was inserted and the nucleus was removed using the stop and chop technique. The irrigation aspiration handpiece was inserted and the remaining cortex was removed. Anterior chamber was deepened with viscoelastic. An Concepcion DIB00 intraocular lens with a power of 18.5 was injected into the capsular bag. Irrigation aspiration handpiece was inserted and the remaining viscoelastic was removed. Incision was hydrated with balanced salt solution and found to be leak free with pressure with Weck-Bethany sponges. 0.1 mL Vigamox injected anterior chamber. 0.3 mL Kenalog 10 mg was injected subconjunctivally. Lid speculum was removed. The patient left the operating room in excellent condition. Complications: none Post-operative Condition: stable Disposition: same day surgery
[2020-10-17] MEDS: LIDOCAINE 2% (GLYDO) 6 ML GEL TOP (07:47)
[2020-10-17] MEDS: HYALURONATE SODIUM 30 MG-10 MG/ML SYRINGES 1 BOX INTRAOCULA (07:47)
[2020-10-17] MEDS: PHENYLEPHRINE/LIDOCAINE VIAL (OR) 0.2 ML EYE-OP (07:48)
[2020-10-17] MEDS: MOXIFLOXACIN INJ 4 MG/0.8 ML VIAL 0.5 MG EYE-OP (07:48)
[2020-10-17] MEDS: BALANCED SALT IRRIG SOLN NO.2 500 ML, EPINEPHrine 1 MG IRR (07:49)
[2020-10-17] MEDS: TRIAMCINOLONE 50 MG/5 ML VIAL INJ (07:49)
[2020-10-17] MEDS: TETRACAINE 0.5% OPHTH DROPS 4 ML 2 DROPS EYE-OP (07:49)
[2020-10-17 08:10] VITALS: BP 176/82; PULSE 59; RESP 16; TEMP 36.1; O2SAT 98
== END 2020-10-17 08:21 | disposition home or self-care (01) ==
PROVIDERS: PCP Registered Nurse; Referring Provider Registered Nurse; Visit Provider Ophthalmology
PROC: (CPT 66984; principal; 2020-10-17 07:45)
DX: H25.11 Age-related nuclear cataract, right eye (principal); E78.5 Hyperlipidemia, unspecified; I10 Essential (primary) hypertension; J45.909 Unspecified asthma, uncomplicated
CPT/HCPCS: 66984; J0171; J2250; J3301

== ENCOUNTER → 2020-10-30 11:34 | Outpatient (CLI) | payer OTHER, SELFPAY ==
[2020-05-16 15:33] VITALS: BMI 34.3
[2020-10-30 13:44] LABS: COVID19 -Nasal RAPID Negative (Negative)
== END ==
PROVIDERS: PCP Registered Nurse; Visit Provider Nurse Practitioner Family
DX: Z01.812 Encounter for preprocedural laboratory examination (principal); Z20.822 Contact with and (suspected) exposure to COVID-19
CPT/HCPCS: 87635; C9803

== ENCOUNTER 2020-10-31 06:59 | Day surgery (SDC) | payer OTHER, SELFPAY ==
[2020-05-16 15:33] VITALS: BMI 34.3
[2020-10-31] MEDS: PROPARACAINE 0.5% OPHTH SOL 2 DROPS EYE-OP (07:23)
[2020-10-31] MEDS: CATARACT EYE COMPOUND (10 DROPS/SYRINGE) 3 DROPS EYE-OP (07:24)
[2020-10-31 07:47] VITALS: BMI 34.3
--- NOTE | 2020-10-31 07:58 | PM.PREOP ---
Pre-operative Note Interval Note History & Physical reviewed/Exam performed by Physician: Yes Changes to H&P: No
--- NOTE | 2020-10-31 07:58 | PM.OP.1 ---
Operative Date/Time/Diagnoses Pre-op diagnosis: Nuclear Cataract Left eye Post-op diagnosis: same Procedure & Clinicians Same procedure as scheduled: Yes Surgeon: Obinna Hirsch Anesthesia Type: MAC +/- and Sedation Operative Notes Procedure in detail: Patient brought to the operating suite. Tetracaine drops placed in the left eye. Patient was prepped and draped in sterile manner. Wire lid speculum was placed in the eye. Betadine drops were placed on the eye. This was irrigated. Lidocaine jelly was placed on the eye. A paracentesis port was created with a side-port blade. 0.1 mL 1% preservative free lidocaine was injected into the anterior chamber. The anterior chamber was deepened with viscoelastic. 2.6 mm keratome was used to create a temporal clear corneal incision. Cystotome and Utrata forceps were used to create continuous tear capsulorrhexis. Balanced salt solution was used to hydro dissect the nucleus. The phacoemulsification handpiece was inserted and the nucleus was removed using the stop and chop technique. The irrigation aspiration handpiece was inserted and the remaining cortex was removed. Anterior chamber was deepened with viscoelastic. An Concepcion DIB00 intraocular lens with a power of 19.0 was injected into the capsular bag. Irrigation aspiration handpiece was inserted and the remaining viscoelastic was removed. Incision was hydrated with balanced salt solution and found to be leak free with pressure with Weck-Bethany sponges. 0.1 mL Vigamox injected anterior chamber. 0.3 mL Kenalog 10 mg was injected subconjunctivally. Lid speculum was removed. The patient left the operating room in excellent condition. Complications: none Post-operative Condition: stable Disposition: same day surgery
[2020-10-31] MEDS: BALANCED SALT IRRIG SOLN NO.2 500 ML, EPINEPHrine 1 MG IRR (08:10)
[2020-10-31] MEDS: PHENYLEPHRINE/LIDOCAINE VIAL (OR) 0.2 ML EYE-OP (08:11)
[2020-10-31] MEDS: TRIAMCINOLONE 50 MG/5 ML VIAL INJ (08:11)
[2020-10-31] MEDS: LIDOCAINE 2% (GLYDO) 6 ML GEL TOP (08:12)
[2020-10-31] MEDS: HYALURONATE SODIUM 30 MG-10 MG/ML SYRINGES 1 BOX INTRAOCULA (08:12)
[2020-10-31] MEDS: MOXIFLOXACIN INJ 4 MG/0.8 ML VIAL 0.5 MG EYE-OP (08:12)
[2020-10-31] MEDS: TETRACAINE 0.5% OPHTH DROPS 4 ML 2 DROPS EYE-OP (08:12)
[2020-10-31 08:25] VITALS: BP 135/73; PULSE 51; RESP 16; TEMP 37; O2SAT 97
== END 2020-10-31 08:41 | disposition home or self-care (01) ==
PROVIDERS: PCP Registered Nurse; Referring Provider Ophthalmology; Visit Provider Ophthalmology
PROC: (CPT 66984; principal; 2020-10-31 08:15)
DX: H25.12 Age-related nuclear cataract, left eye (principal); E78.5 Hyperlipidemia, unspecified; I10 Essential (primary) hypertension; J45.909 Unspecified asthma, uncomplicated; E66.9 Obesity, unspecified
CPT/HCPCS: 66984; J0171; J2250; J3010; J3301

== ENCOUNTER → 2021-03-01 10:54 | Outpatient (CLI) | payer OTHER, SELFPAY ==
[2020-05-16 15:33] VITALS: BMI 34.3
[2021-03-01 12:22] LABS: Alanine Aminotransferase 27 IU/L (<35); Albumin 4.4 g/dL (3.5-5.0); Albumin Globulin Ratio 1.3 (1.0-2.8); Alkaline Phosphatase 72 U/L (38-126); BUN Creatinine Ratio 18.7 (6-22); Bilirubin Total 0.6 mg/dL (0.2-1.3); Blood Urea Nitrogen 17 mg/dL (7-17); Calcium 9.5 mg/dL (8.4-10.2); Carbon Dioxide 31 mmol/L (22-32); Chloride 103 mmol/L (98-107); Cholesterol 132 mg/dL (140-199); Estimated Glomerular Filt Rate > 60.0 mL/min (>60); Globulin 3.5 g/dL (1.7-4.1); Glucose 127 mg/dL (80-110); HDL Cholesterol 49 mg/dL (40-60); HEMOLYSIS < 15 (0-50); LDL Cholesterol Calculated 61 mg/dL (<100); Potassium 4.6 mmol/L (3.4-5.1); Sodium 139 mmol/L (137-145); Total Protein 7.9 g/dL (6.3-8.2); Triglycerides 111 mg/dL (35-150)
[2021-03-01 13:05] LABS: Aspartate Aminotransferase 35 IU/L (14-36)
== END ==
PROVIDERS: PCP Registered Nurse; Referring Provider Registered Nurse; Visit Provider Registered Nurse
DX: I10 Essential (primary) hypertension (principal); E78.5 Hyperlipidemia, unspecified
CPT/HCPCS: 36415; 80053; 80061

== ENCOUNTER → 2021-03-20 10:04 | Outpatient (CLI) | payer OTHER, SELFPAY ==
[2020-05-16 15:33] VITALS: BMI 34.3
[2021-03-20 11:44] LABS: Hemoglobin A1C% w Est Avg Glu 6.1 % (4.0-6.0)
== END ==
PROVIDERS: PCP Registered Nurse; Referring Provider Registered Nurse; Visit Provider Registered Nurse
DX: R73.01 Impaired fasting glucose (principal)
CPT/HCPCS: 36415; 83036

== ENCOUNTER → 2021-07-06 10:37 | Outpatient (CLI) | payer OTHER, SELFPAY ==
[2020-05-16 15:33] VITALS: BMI 34.3
[2021-07-06 11:27] LABS: Hematocrit 40.2 % (36-46); Hemoglobin 13.5 g/dL (12.0-16.0)
[2021-07-06 12:29] LABS: Creatinine Urine Random 54.4 mg/dL; Protein (Total) Urine Random 12 mg/dL (0-12); Protein Creatinine Ratio Urine 0.22 GRAM/24H
[2021-07-06 13:08] LABS: BUN Creatinine Ratio 19.5 (6-22); Blood Urea Nitrogen 17 mg/dL (7-17); Calcium 9.2 mg/dL (8.4-10.2); Carbon Dioxide 29 mmol/L (22-32); Chloride 103 mmol/L (98-107); Estimated Glomerular Filt Rate > 60 mL/min (>60); Glucose 133 mg/dL (80-110); HEMOLYSIS < 15 (0-50); Potassium 4.7 mmol/L (3.4-5.1); Sodium 139 mmol/L (137-145)
[2021-07-07 07:36] LABS: Parathyroid Hormone Int 41 pg/mL (15-65)
== END ==
PROVIDERS: PCP Family Medicine; Referring Provider Student in an Organized Health Care Education/Training Program; Visit Provider Student in an Organized Health Care Education/Training Program
DX: N05.9 Unspecified nephritic syndrome with unspecified morphologic changes (principal); D64.9 Anemia, unspecified; N25.81 Secondary hyperparathyroidism of renal origin; R80.9 Proteinuria, unspecified
CPT/HCPCS: 36415; 80048; 82570; 83970; 84156; 85014; 85018

== ENCOUNTER → 2021-12-20 15:28 | Outpatient (CLI) | payer OTHER, SELFPAY ==
[2020-05-16 15:33] VITALS: BMI 34.3
--- NOTE | 2021-12-20 15:31 | DI.MG.S_ITS ---
BILATERAL DIGITAL SCREENING MAMMOGRAM 3D/2D WITH CAD: 12/20/2021 CLINICAL: Routine screening. Family history of breast cancer. Comparison is made to exams dated: 10/15/2018 mammogram, 10/30/2016 mammogram, and 10/27/2014 mammogram - [facility]. Both breasts are almost entirely fatty (category a/<25% glandular tissue). Current study was also evaluated with a Computer Aided Detection (CAD) system. There are benign calcifications in the right breast. There also are benign post operative findings in the left breast. No significant masses, calcifications, or other findings are seen in either breast. There has been no significant interval change. IMPRESSION: BENIGN There is no mammographic evidence of malignancy. A 1 year screening mammogram is recommended. This exam was interpreted at Station ID: [id number]. NOTE: For mammograms, a report in lay terms will be sent to the patient. Approximately 15% of breast malignancies will not be visualized mammographically. In the management of a palpable breast mass, a negative mammogram must not discourage biopsy of a clinically suspicious lesion. Electronically Signed By: Daniela mack/elijah:12/21/2021 08:17:37 letter sent: Normal Exam ACR BI-RADS Category 2: Benign Finding(s) 3342F
== END ==
PROVIDERS: PCP Family Medicine; Referring Provider Family Medicine; Visit Provider Family Medicine
DX: Z12.31 Encounter for screening mammogram for malignant neoplasm of breast (principal); Z80.3 Family history of malignant neoplasm of breast
CPT/HCPCS: 77063; 77067

== ENCOUNTER → 2022-02-26 10:03 | Outpatient (CLI) | payer OTHER, SELFPAY ==
[2020-05-16 15:33] VITALS: BMI 34.3
--- NOTE | 2022-02-26 10:03 | DI.RAD.S_ITS ---
PROCEDURE: XR HAND RT MIN 3V INDICATIONS: Right hand pain TECHNIQUE: 3 views of the hand(s) acquired. COMPARISON: None. FINDINGS: Bones: Osseous demineralization. Scattered arthrosis, moderate to severe at the 1st CMC and 3rd DIP joints. No acute fracture or dislocation identified. Scattered bone fragment adjacent to multiple joints, possibly degenerative in etiology, age indeterminate. Soft tissues: No suspicious soft tissue calcifications. IMPRESSION: Scattered arthrosis, particularly at the 1st CMC and 3rd DIP joints. If there is high concern for occult injury, consider repeat radiography or cross-sectional imaging. Dictated by: Romulo Ayers M.D. on 02/26/2022 at 11:09 Approved by: Romulo Ayers M.D. on 02/26/2022 at 11:11
== END ==
PROVIDERS: PCP Family Medicine; Referring Provider Physician Assistant Medical; Visit Provider Physician Assistant Medical
DX: M18.11 Unilateral primary osteoarthritis of first carpometacarpal joint, right hand (principal); M19.041 Primary osteoarthritis, right hand; M79.641 Pain in right hand
CPT/HCPCS: 73130

== ENCOUNTER → 2022-06-10 09:50 | Outpatient (CLI) | payer OTHER, SELFPAY ==
[2020-05-16 15:33] VITALS: BMI 34.3
[2022-06-10 10:44] LABS: Add Manual Diff / Slide Review NO; Basophils Absolute Auto 100 /uL (0-100); Basophils Percent Auto 1.1 % (0-2); Eosinophils Absolute Auto 200 /uL (0-450); Eosinophils Percent Auto 4.3 % (2-4); Hematocrit 39.6 % (36-46); Hemoglobin 13.3 g/dL (12.0-16.0); Lymphocytes Absolute Auto 1100 /uL (1100-4500); Lymphocytes Percent Auto 19.5 % (25-40); Mean Corpuscular HGB Conc 33.6 % (30-36); Mean Corpuscular Volume 95.2 fL (80-100); Monocytes Absolute Auto 700 /uL (0-900); Monocytes Percent Auto 11.8 % (3-14); Neutrophils Absolute Auto 3600 /uL (1500-7000); Neutrophils Percent Auto 63.3 % (50-75); Platelet Count 209 X10^3/uL (150-400); Red Blood Cell Count 4.16 X10^6/uL (4.0-5.2); Red Cell Distribution Width 14.6 % (11.6-14.8); White Blood Cell Count 5.6 X10^3/uL (4.5-11.0)
[2022-06-10 11:00] LABS: Alanine Aminotransferase 24 IU/L (<35); Albumin 3.9 g/dL (3.5-5.0); Albumin Globulin Ratio 1.3 (1.0-2.8); Alkaline Phosphatase 63 U/L (38-126); Aspartate Aminotransferase 33 IU/L (14-36); BUN Creatinine Ratio 30.1 (6-22); Bilirubin Total 0.9 mg/dL (0.2-1.3); Blood Urea Nitrogen 22 mg/dL (7-17); Calcium 8.9 mg/dL (8.4-10.2); Carbon Dioxide 30 mmol/L (22-32); Chloride 103 mmol/L (98-107); Cholesterol 117 mg/dL (140-199); Estimated Glomerular Filt Rate > 60 mL/min (>60); Glucose 110 mg/dL (80-110); HDL Cholesterol 48 mg/dL (40-60); LDL Cholesterol Calculated 48 mg/dL (<100); Sodium 137 mmol/L (137-145); Total Protein 6.9 g/dL (6.3-8.2); Triglycerides 105 mg/dL (35-150); Uric Acid 5.2 mg/dL (2.5-6.2)
[2022-06-10 11:03] LABS: HEMOLYSIS 75 (0-50)
[2022-06-10 11:04] LABS: Potassium 5.3 mmol/L (3.4-5.1)
[2022-06-10 12:11] LABS: Creatinine Urine Random 153.7 mg/dL
[2022-06-11 02:36] LABS: Labcorp Hemoglobin (Hb) A1c 6.1 % (4.8-5.6)
== END ==
PROVIDERS: PCP Family Medicine; Referring Provider Family Medicine; Visit Provider Family Medicine
DX: E11.9 Type 2 diabetes mellitus without complications (principal)
CPT/HCPCS: 36415; 80053; 80061; 82043; 82570; 83036; 84550; 85025

== ENCOUNTER → 2022-08-01 12:57 | Outpatient (CLI) | payer OTHER, SELFPAY ==
[2020-05-16 15:33] VITALS: BMI 34.3
[2022-08-01 14:28] LABS: Hematocrit 40.7 % (36-46); Hemoglobin 13.8 g/dL (12.0-16.0)
[2022-08-01 15:17] LABS: BUN Creatinine Ratio 19.2 (6-22); Blood Urea Nitrogen 15 mg/dL (7-17); Calcium 9.3 mg/dL (8.4-10.2); Carbon Dioxide 27 mmol/L (22-32); Chloride 102 mmol/L (98-107); Estimated Glomerular Filt Rate > 60 mL/min (>60); Glucose 96 mg/dL (80-110); HEMOLYSIS < 15 (0-50); Potassium 4.3 mmol/L (3.4-5.1); Sodium 140 mmol/L (137-145)
[2022-08-01 17:51] LABS: Creatinine Urine Random 132.5 mg/dL; Protein (Total) Urine Random 39 mg/dL (0-12); Protein Creatinine Ratio Urine 0.29 GRAM/24H
[2022-08-03 07:15] LABS: Parathyroid Hormone Int 54 pg/mL (15-65)
== END ==
PROVIDERS: PCP Family Medicine; Referring Provider Student in an Organized Health Care Education/Training Program; Visit Provider Student in an Organized Health Care Education/Training Program
DX: N05.9 Unspecified nephritic syndrome with unspecified morphologic changes (principal); D64.9 Anemia, unspecified; R80.9 Proteinuria, unspecified; N25.81 Secondary hyperparathyroidism of renal origin
CPT/HCPCS: 36415; 80048; 82570; 83970; 84156; 85014; 85018

== ENCOUNTER → 2022-09-09 09:40 | Outpatient (CLI) | payer OTHER, SELFPAY ==
[2020-05-16 15:33] VITALS: BMI 34.3
--- NOTE | 2022-09-09 09:42 | DI.RAD.S_ITS ---
PROCEDURE: XR CHEST 2V INDICATIONS: coughx7 day Hx partial Left lobectomy/asthma TECHNIQUE: 2 views of the chest were acquired. COMPARISON: [facility], CR, XR CHEST 1V, 05/09/2018, 23:22. FINDINGS: Surgical changes and devices: None. Lungs and pleura: Lungs are clear. No pleural effusions or pneumothorax. Mediastinum: Mediastinal contours are normal. Cardiomegaly, increased compared to the previous study. Question paraesophageal hernia. Bones and chest wall: No suspicious bony abnormalities. Soft tissues appear unremarkable. IMPRESSION: 1. Interval increase in cardiomegaly. 2. Question paraesophageal hernia. Dictated by: Garland Gee M.D. on 09/09/2022 at 10:27 Approved by: Garland Gee M.D. on 09/09/2022 at 10:29
== END ==
PROVIDERS: PCP Family Medicine; Referring Provider Student in an Organized Health Care Education/Training Program; Visit Provider Student in an Organized Health Care Education/Training Program
DX: R05.8 Other specified cough (principal); I51.7 Cardiomegaly
CPT/HCPCS: 71046

== ENCOUNTER → 2023-02-16 10:20 | Outpatient (CLI) | payer OTHER, SELFPAY ==
[2020-05-16 15:33] VITALS: BMI 34.3
[2023-02-16 11:06] LABS: Influenza A - CEPHEID Flu A NEGATIVE (NEGATIVE); Influenza B - CEPHEID Flu B NEGATIVE (NEGATIVE); Respiratory Syncytial Virus Negative (Negative)
[2023-02-16 11:07] LABS: COVID-19 CEPHEID 4-PLEX PCR Negative (Negative)
== END ==
PROVIDERS: PCP Family Medicine; Visit Provider Nurse Practitioner Family
DX: R05.1 Acute cough (principal)
CPT/HCPCS: 0241U

== ENCOUNTER → 2023-06-12 09:03 | Outpatient (CLI) | payer OTHER, SELFPAY ==
[2020-05-16 15:33] VITALS: BMI 34.3
[2023-06-12 09:38] LABS: Hematocrit 39.3 % (36-46); Hemoglobin 13.3 g/dL (12.0-16.0); Mean Corpuscular HGB Conc 33.8 % (30-36); Mean Corpuscular Hemoglobin 31.8 PG (26-34); Platelet Count 207 X10^3/uL (150-400); Red Blood Cell Count 4.18 X10^6/uL (4.0-5.2); Red Cell Distribution Width 13.3 % (11.6-14.8); White Blood Cell Count 5.7 X10^3/uL (4.5-11.0)
[2023-06-12 10:09] LABS: Alanine Aminotransferase 22 IU/L (<35); Albumin 4.1 g/dL (3.5-5.0); Albumin Globulin Ratio 1.5 (1.0-2.8); Alkaline Phosphatase 67 U/L (38-126); Aspartate Aminotransferase 30 IU/L (14-36); Bilirubin Total 0.7 mg/dL (0.2-1.3); Blood Urea Nitrogen 17 mg/dL (7-17); Carbon Dioxide 27 mmol/L (22-32); Chloride 107 mmol/L (98-107); Cholesterol 126 mg/dL (140-199); Estimated Glomerular Filt Rate > 60 mL/min (>60); Globulin 2.7 g/dL (1.7-4.1); Glucose 124 mg/dL (80-110); HDL Cholesterol 52 mg/dL (40-60); HEMOLYSIS < 15 (0-50); LDL Cholesterol Calculated 52 mg/dL (<100); Potassium 4.3 mmol/L (3.4-5.1); Sodium 139 mmol/L (137-145); Total Protein 6.8 g/dL (6.3-8.2); Triglycerides 112 mg/dL (35-150)
[2023-06-12 10:14] LABS: High Sensitivity CRP - Cardiac 3.5 mg/L (1.0-3.0)
[2023-06-12 11:14] LABS: Creatinine Urine Random 82.6 mg/dL
[2023-06-12 11:18] LABS: Microalbumi Creatinin Ratio Ur 73.8 ug/mg CR (<30); Microalbumin Urine Random 6.1 mg/dL (0-1.6)
[2023-06-12 13:22] LABS: Hemoglobin A1C% w Est Avg Glu 6.4 % (4.0-6.0)
[2023-06-14 10:15] LABS: Calcium 9.1 mg/dL (8.7-10.3); Parathyroid Hormone, Intact 72 pg/mL (15-65)
== END ==
PROVIDERS: PCP Family Medicine; Referring Provider Family Medicine; Visit Provider Family Medicine
DX: R73.03 Prediabetes (principal); I12.9 Hypertensive chronic kidney disease with stage 1 through stage 4 chronic kidney disease, or unspecified chronic kidney disease; N18.2 Chronic kidney disease, stage 2 (mild); E78.5 Hyperlipidemia, unspecified; R53.83 Other fatigue
CPT/HCPCS: 36415; 80053; 80061; 82043; 82310; 82570; 83036; 83970; 85027; 86140

== ENCOUNTER → 2023-06-24 10:14 | Outpatient (CLI) | payer OTHER, SELFPAY ==
[2020-05-16 15:33] VITALS: BMI 34.3
--- NOTE | 2023-06-24 10:14 | DI.RAD.S_ITS ---
PROCEDURE: XR DEXA AXIAL SKELETON INDICATIONS: bone density screening COMPARISON: [facility], CR, XR DEXA AXIAL SKELETON, 12/07/2019, 15:42. FINDINGS: Lumbar Spine: Bone mineral density 1.419 g/cm2, T score 3.4. There is interval 0.3% increase in total lumbar bone density. Left Hip: Bone mineral density 0.842 g/cm2, T score -0.8. There is interval 3.5% increase in left total hip bone density. Left Femoral Neck: Bone mineral density 0.623 g/cm2, T score -2.0. There is interval 8.6% decrease in left femoral neck bone density. Right Hip: Bone mineral density 0.833 g/cm2, T score -0.9. There is interval 4.3% increase in total right hip bone density. Right Femoral Neck: Bone mineral density 0.644 g/cm2, T score -1.8. There is interval zeroth 0.3% decrease in right femoral neck bone density. Fracture Risk Calculation (when applicable): 10-year fracture risk of a major osteoporotic fracture 37 % and of a hip fracture 25 %. (T score greater or equal to -1.0 to: NORMAL) (T score from -1.1 to -2.4: OSTEOPENIA) (T score less than or equal to -2.5: OSTEOPOROSIS) IMPRESSION: Osteopenia with increased 10 year fracture risk as above. Follow-up guidelines as follows: Osteoporosis: Consider a repeat DEXA and Vertebral Fracture Assessment (VFA) exam in 2 years or sooner if medically necessary, to reassess this patient's status. Osteopenia: Consider a repeat DEXA in 2-3 years to reassess this patient's status, or if there is a new clinical indication. Normal: Consider a repeat DEXA in 5 years or sooner, or if there is a new clinical indication. Dictated by: Jonny Newman M.D. on 06/24/2023 at 11:54 Approved by: Jonny Newman M.D. on 06/24/2023 at 11:58
== END ==
PROVIDERS: PCP Family Medicine; Referring Provider Family Medicine; Visit Provider Family Medicine
DX: M81.0 Age-related osteoporosis without current pathological fracture (principal)
CPT/HCPCS: 77080

== ENCOUNTER → 2023-07-31 11:17 | Outpatient (CLI) | payer OTHER, SELFPAY ==
[2023-06-25 09:45] VITALS: BMI 34.3
--- NOTE | 2023-07-31 11:17 | DI.CT.S_ITS ---
PROCEDURE: CT CHEST WO CON INDICATIONS: H/o lung cancer, eval for nodule or lesion TECHNIQUE: Noncontrast 5 mm thick sections acquired from the pulmonary apices to the posterior costophrenic angles. 1 mm lung window, 5 mm thick coronal and sagittal and 7 mm axial MIP reformats were then acquired. For radiation dose reduction, the following was used: automated exposure control, adjustment of mA and/or kV according to patient size. COMPARISON: Outside Facility, RG, CT THORAX W/O CONTRAST, 03/06/2020, 13:58. Outside Facility, RG, CT THORAX W/O CONTRAST, 04/12/2022, 7:45. FINDINGS: Image quality: Diagnostic. Lower Neck: No enlarged lymph nodes. Thyroid: No thyroid nodules which require sonographic follow up, per consensus guidelines. Axillae: No enlarged lymph nodes. Chest Wall: Unremarkable. Bones: Unremarkable. Lungs and Pleura: No pneumothorax or pleural effusions. No consolidation or growing/ suspicious nodules. Left upper lobectomy. Heart: Heart size is enlarged. No pericardial effusion. Thoracic Vessels: The aorta and pulmonary arteries demonstrate normal size. Mediastinum and Tyra: Stable paraesophageal lymph node measuring 1 cm. Esophagus: No wall thickening. Large hiatal hernia. Upper Abdomen: Visualized upper abdomen solid organs and bowel loops appear normal. IMPRESSION: Left upper lobectomy, without measurable disease. Stable large hiatal hernia. Dictated by: Brant Gonsales M.D. on 08/01/2023 at 16:56 Approved by: Brant Gonsales M.D. on 08/01/2023 at 16:59
== END ==
LOC: CT 11:17
PROVIDERS: PCP Family Medicine; Referring Provider Internal Medicine Critical Care Medicine; Visit Provider Internal Medicine Critical Care Medicine
DX: Z85.118 Personal history of other malignant neoplasm of bronchus and lung (principal); Z08 Encounter for follow-up examination after completed treatment for malignant neoplasm; K44.9 Diaphragmatic hernia without obstruction or gangrene; I51.7 Cardiomegaly
CPT/HCPCS: 71250

== ENCOUNTER → 2023-11-10 09:15 | Outpatient (CLI) | payer OTHER, SELFPAY ==
[2023-06-25 09:45] VITALS: BMI 34.3
[2023-11-10 10:30] LABS: Hematocrit 37.4 % (36-46); Hemoglobin 12.7 g/dL (12.0-16.0)
[2023-11-10 10:38] LABS: Hemoglobin A1C% w Est Avg Glu 5.8 % (4.0-6.0)
[2023-11-10 10:39] LABS: Creatinine Urine Random 78.03 mg/dL; Protein (Total) Urine Random 25 mg/dL (0-12); Protein Creatinine Ratio Urine 0.32 GRAM/24H
[2023-11-10 11:20] LABS: BUN Creatinine Ratio 18.5 (6-22); Blood Urea Nitrogen 17 mg/dL (7-17); Calcium 9.3 mg/dL (8.4-10.2); Carbon Dioxide 29 mmol/L (22-32); Chloride 103 mmol/L (98-107); Estimated Glomerular Filt Rate > 60 mL/min (>60); Glucose 126 mg/dL (80-110); HEMOLYSIS < 15 (0-50); Potassium 4.8 mmol/L (3.4-5.1); Sodium 138 mmol/L (137-145)
[2023-11-10 11:35] LABS: Vitamin D 25 Hydroxy (D3) 37.2 ng/mL (30.0-100.0)
[2023-11-12 09:10] LABS: Parathyroid Hormone Int 34 pg/mL (15-65)
== END ==
LOC: LAB 09:18
PROVIDERS: PCP Family Medicine; Referring Provider Student in an Organized Health Care Education/Training Program; Visit Provider Student in an Organized Health Care Education/Training Program
DX: R73.09 Other abnormal glucose (principal); E21.3 Hyperparathyroidism, unspecified; N05.9 Unspecified nephritic syndrome with unspecified morphologic changes; D70.9 Neutropenia, unspecified; D63.1 Anemia in chronic kidney disease; N25.81 Secondary hyperparathyroidism of renal origin; R80.9 Proteinuria, unspecified
CPT/HCPCS: 36415; 80048; 82306; 82570; 83036; 83970; 84156; 85014; 85018

== ENCOUNTER → 2023-11-23 11:34 | Outpatient (CLI) | payer OTHER, SELFPAY ==
[2023-06-25 09:45] VITALS: BMI 34.3
[2023-11-23 12:25] LABS: Influenza A - CEPHEID Flu A NEGATIVE (NEGATIVE); Influenza B - CEPHEID Flu B NEGATIVE (NEGATIVE); Respiratory Syncytial Virus Negative (Negative)
[2023-11-23 12:28] LABS: COVID-19 CEPHEID 4-PLEX PCR Negative (Negative)
== END ==
PROVIDERS: PCP Family Medicine; Visit Provider Nurse Practitioner Family
DX: R05.9 Cough, unspecified (principal)
CPT/HCPCS: 0241U

== ENCOUNTER 2024-02-19 09:51 | Observation (INO) | payer OTHER, SELFPAY ==
[2023-06-25 09:45] VITALS: BMI 34.3
[2024-02-19] VITALS (12 sets, daily range): BP systolic 142–197; BP diastolic 61–85; PULSE 57–67; RESP 14–23; TEMP 36.3–36.6; O2SAT 97–99; BMI 38.6; BMI 38.2
--- NOTE | 2024-02-19 10:06 | EKG_ITS ---
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
--- NOTE | 2024-02-19 10:06 | DI.RAD.S_ITS ---
PROCEDURE: XR CHEST 1V INDICATIONS: Possible stroke TECHNIQUE: One view of the chest was acquired. COMPARISON: [facility], CR, XR CHEST 2V, 09/09/2022, 9:38. [facility], CR, XR CHEST 1V, 05/09/2018, 23:22. FINDINGS: Surgical changes and devices: None. Lungs and pleura: Lungs are free of consolidative pneumonia and there is a mild generalized interstitial prominence pattern previously present. This may reflect a prior smoking history. No pleural effusions or pneumothorax. Mediastinum: Mediastinal contours appear normal. Heart size is normal. Bones and chest wall: No suspicious bony lesions. Overlying soft tissues appear unremarkable. IMPRESSION: No acute cardiopulmonary abnormality is seen. Chronic mild interstitial prominence. Dictated by: Cristopher Mustafa M.D. on 02/19/2024 at 10:40 Approved by: Cristopher Mustafa M.D. on 02/19/2024 at 10:41
--- NOTE | 2024-02-19 10:06 | DI.CT.S_ITS ---
PROCEDURE: CT HEAD/BRAIN WO CON INDICATIONS: left arm weakness since 02/17/24 TECHNIQUE: Noncontrast 4.5 mm thick angled axial sections acquired from the foramen magnum to the vertex, with coronal and sagittal reformats. For radiation dose reduction, the following was used: automated exposure control, adjustment of mA and/or kV according to patient size. COMPARISON: None. FINDINGS: Image quality: Diagnostic. CSF spaces: Basal cisterns are patent. No extra-axial fluid collections. The ventricles are symmetric in size and shape. Brain: No intracranial bleeds or masses. There is cerebral volume loss for age, with resultant ventricular and sulcal prominence. There are prominent periventricular and deep white matter chronic small vessel ischemic changes but no visualized evidence of acute or subacute ischemic injury. There is intracranial internal carotid artery atherosclerosis. Skull and face: Calvarium and visualized facial bones appear intact, without suspicious lesions. Sinuses: Visualized sinuses and mastoids are clear. IMPRESSION: Prominent microvascular atherosclerotic change in the deep white matter of each hemisphere, but no definite acute or subacute ischemic injury. Brain MR imaging may detect ischemic injury without mass effect that is not visible by this study. Dictated by: Cristopher Mustafa M.D. on 02/19/2024 at 10:38 Approved by: Cristopher Mustafa M.D. on 02/19/2024 at 10:40
[2024-02-19 10:21] LABS: Add Manual Diff / Slide Review NO; Basophils Absolute Auto 0 /uL (0-100); Basophils Percent Auto 0.7 % (0-2); Eosinophils Absolute Auto 300 /uL (0-450); Eosinophils Percent Auto 4.7 % (2-4); Hematocrit 37.9 % (36-46); Hemoglobin 12.7 g/dL (12.0-16.0); Lymphocytes Absolute Auto 900 /uL (1100-4500); Lymphocytes Percent Auto 13.6 % (25-40); Mean Corpuscular HGB Conc 33.5 % (30-36); Mean Corpuscular Hemoglobin 31.2 PG (26-34); Mean Corpuscular Volume 93.1 fL (80-100); Monocytes Absolute Auto 600 /uL (0-900); Monocytes Percent Auto 8.4 % (3-14); Neutrophils Absolute Auto 4800 /uL (1500-7000); Neutrophils Percent Auto 72.6 % (50-75); Platelet Count 250 X10^3/uL (150-400); Red Blood Cell Count 4.07 X10^6/uL (4.0-5.2); Red Cell Distribution Width 13.8 % (11.6-14.8); White Blood Cell Count 6.6 X10^3/uL (4.5-11.0)
[2024-02-19 10:31] LABS: PTT Partial Thromboplastin Tim 30 SECONDS (25.1-36.5)
[2024-02-19 10:32] LABS: Alanine Aminotransferase 30 IU/L (<35); Albumin 4.4 g/dL (3.5-5.0); Albumin Globulin Ratio 1.4 (1.0-2.8); Alkaline Phosphatase 62 U/L (38-126); Aspartate Aminotransferase 42 IU/L (14-36); BUN Creatinine Ratio 20.8 (6-22); Bilirubin Total 0.6 mg/dL (0.2-1.3); Blood Urea Nitrogen 15 mg/dL (7-17); Calcium 8.7 mg/dL (8.4-10.2); Carbon Dioxide 24 mmol/L (22-32); Chloride 108 mmol/L (98-107); Creatine Kinase 99 U/L (30-135); Estimated Glomerular Filt Rate > 60 mL/min (>60); Globulin 3.2 g/dL (1.7-4.1); Glucose 168 mg/dL (80-110); HEMOLYSIS 42 (0-50); Magnesium 1.7 mg/dL (1.6-2.3); Potassium 3.9 mmol/L (3.4-5.1); Sodium 139 mmol/L (137-145); Total Protein 7.6 g/dL (6.3-8.2)
[2024-02-19 10:45] LABS: Troponin I < 0.012 ng/mL (0.01-0.034)
--- NOTE | 2024-02-19 11:39 | ED.NEUROSD ---
HPI - Neuro Symptoms/Deficit General Chief Complaint: Neuro Symptoms/Deficit Stated Complaint: weakness, tingling L hand/arm Time Seen by Provider: 02/19/24 10:05 Source: patient Mode of arrival: Ambulatory History of Present Illness HPI Narrative: 78-year-old with a history of diabetes, hypertension, hyperlipidemia, asthma, prior lung cancer, chronic kidney disease who presents to the emergency department complaining of weakness and tingling in the left upper extremity for the last 48 hours. There has been no pain and no other neurologic symptoms, she had been on aspirin previously had stopped it at her doctor's direction restarted it 2 days ago with current symptoms. She does not describe fevers, cough, chills, feels like she is otherwise at her baseline. On Anticoagulants: No Related Data Home Medications Medication Instructions Recorded Confirmed calcium carbonate (Tums Ultra) 1,000 mg PO QDAY ##0 12/03/16 11/23/23 magnesium oxide 250 mg PO DAILY 03/22/21 11/23/23 diphenhydramine 25 1 tab PO BEDTIME PRN 12/09/22 11/23/23 mg-acetaminophen 500 mg tablet (Tylenol PM Extra Strength) alpha lipoic acid 600 mg tablet 600 mg PO DAILY 06/10/23 11/23/23 cholecalciferol (vitamin D3) 25 25 mcg PO DAILY 06/10/23 11/23/23 mcg (1,000 unit) capsule cinnamon bark extract 500 mg tablet mg PO 06/10/23 11/23/23 inulin 2 gram chewable tablet g PO 06/10/23 11/23/23 (Fiber Gummies) melatonin 5 mg capsule 5 mg PO 06/10/23 11/23/23 naphazo HCl-hpm-ps 80-Zn sulf 1 drp EYE-BOTH 06/10/23 11/23/23 [Clear Eyes Complete] omega-3 fatty acids [Fish Oil] 1 cap PO 06/10/23 11/23/23 psyllium husk 0.4 gram capsule 0.4 g PO DAILY 06/10/23 11/23/23 (Daily Fiber) Previous Rx's Medication Instructions Recorded ciclesonide 80 mcg/actuation 1 puff inhalation DAILY #6.1 grams 06/16/23 aerosol inhaler (Alvesco) metoprolol tartrate 100 mg tablet 50 mg (1/2 x 100 mg) PO BID #90 06/16/23 tabs ramipril 10 mg capsule 10 mg PO BID #180 caps 06/16/23 simvastatin 40 mg tablet 40 mg PO ONCE PM #90 tabs 06/16/23 metformin 500 mg tablet 500 mg PO BIDWMEAL #180 tabs 11/11/23 Allergies Allergy/AdvReac Type Severity Reaction Status Date / Time oxycodone AdvReac Severe Hallucinati Verified 02/19/24 09:59 ng hydrochlorothiazide AdvReac Intermediate causes gout Verified 02/19/24 09:59 [HYDROCHLOROTHIAZIDE] adhesive tape [ADHESIVE TAPE] AdvReac Mild (AFTER Verified 02/19/24 09:59 NEEDLE BIOPSY 10/2016) REDNESS AND SMALL BLISTERS Review of Systems Review of Systems Narrative: Pertinent positive and negative findings as per HPI Hematologic/Lymphatic On Anticoagulants: No Patient History Medical History Adenocarcinoma of left lung (~11/2016) Asthma DJD (degenerative joint disease) of knee Gout Hyperlipemia Hypertension Impaired fasting glucose (07/09/10) Osteoarthritis Right shoulder pain Surgical History Cataract extraction status of right eye History of lobectomy of lung (~12/2016) Hx of tubal ligation Social History household members: spouse and significant other Smoking Status: Never smoker second hand exposure: No alcohol intake: current substance use type: does not use Smoking Status: Never smoker alcohol intake frequency: holidays/special occasions only Exam Initial Vital Signs Initial Vital Signs: Vital Signs Temperature 97.3 F L 02/19/24 09:59 Pulse Rate 63 02/19/24 09:59 Respiratory Rate 14 02/19/24 09:59 Blood Pressure 177/77 H 02/19/24 09:59 Pulse Oximetry 99 02/19/24 09:59 Oxygen Delivery Method Room Air 02/19/24 09:59 General: Healthy appearing, in no acute distress. Able to give a complete and coherent history. Well-nourished well-developed HEENT: Moist mucous membranes, normal sclera with reactive pupils, Neck: No JVD, supple Respiratory: Lungs are clear to auscultation, no wheezing no rales no rhonchi. Full and symmetrical air movement Cardiac: Regular rate and rhythm no murmurs no bruits Abdomen: Soft, nontender, good bowel tones, no flank pain Skin: Warm and dry, no rashes Neurologic: Grossly neurologically intact with no obvious asymmetries or abnormalities Extremities: No trauma, left upper extremity is slightly weak, she is unable to fully extend all of her fingers. NIH score is 1. She is 1+ symmetrical lower extremity edema Psych: Cooperative, appropriate insight and affect NIH Stroke Scale/Score (NIHSS) on 02/19/2024 RESULT SUMMARY: 1 points NIH Stroke Scale INPUTS: 1A: Level of consciousness ?> 0 = Alert; keenly responsive 1B: Ask month and age ?> 0 = Both questions right 1C: 'Blink eyes' & 'squeeze hands' ?> 0 = Performs both tasks 2: Horizontal extraocular movements ?> 0 = Normal 3: Visual mireles ?> 0 = No visual loss 4: Facial palsy ?> 0 = Normal symmetry 5A: Left arm motor drift ?> 1 = Drift, but doesn't hit bed 5B: Right arm motor drift ?> 0 = No drift for 10 seconds 6A: Left leg motor drift ?> 0 = No drift for 5 seconds 6B: Right leg motor drift ?> 0 = No drift for 5 seconds 7: Limb Ataxia ?> 0 = No ataxia 8: Sensation ?> 0 = Normal; no sensory loss 9: Language/aphasia ?> 0 = Normal; no aphasia 10: Dysarthria ?> 0 = Normal 11: Extinction/inattention ?> 0 = No abnormality Course Orders Ordered: ED Orders 02/19/24 10:06 CT head/brain wo con Stat XR chest 1V Stat EKG-12 Lead Stat 02/19/24 10:15 Complete Blood Count AUTO DIFF Stat Comprehensive Metabolic Panel Stat Magnesium Stat PTT Partial Thromboplastin [place] Stat Prothrombin Time INR Stat Troponin & CK Cardiac Panel Stat 02/19/24 12:00 Urine Drug Screen, Rapid Stat Urine Microscopic Stat Ondansetron HCl (Ondansetron 4 Mg/2 Ml Inj) 4 mg IV NOW PRN PRN Reason: Nausea And Vomiting Ondansetron HCl (Ondansetron 4 Mg Odt) 4 mg SL NOW PRN PRN Reason: Nausea And Vomiting Vital Signs Vital signs: Vital Signs - 8 hr 02/19/24 09:59 02/19/24 12:00 02/19/24 12:29 Temperature 97.3 F L Pulse Rate 63 58 L Respiratory Rate 14 Blood Pressure 177/77 H 179/85 H Pulse Oximetry 99 99 Oxygen Delivery Method Room Air 02/19/24 12:29 02/19/24 12:30 02/19/24 12:30 Temperature Pulse Rate 61 60 Respiratory Rate 20 18 Blood Pressure 197/84 H 179/84 H Pulse Oximetry 99 98 Oxygen Delivery Method MDM - Neuro Symptoms/Deficit Lab Data 02/19/24 10:15 02/19/24 10:15 Labs: Lab Results 02/19/24 02/19/24 Range/Units 10:15 12:00 WBC 6.6 (4.5-11.0) X10^3/uL RBC 4.07 (4.0-5.2) X10^6/uL Hgb 12.7 (12.0-16.0) g/dL Hct 37.9 (36-46) % MCV 93.1 (80-100) fL MCH 31.2 (26-34) PG MCHC 33.5 (30-36) % RDW 13.8 (11.6-14.8) % Plt Count 250 (150-400) X10^3/uL Neut % (Auto) 72.6 (50-75) % Lymph % (Auto) 13.6 L (25-40) % [place] % (Auto) 8.4 (3-14) % Eos % (Auto) 4.7 H (2-4) % Baso % (Auto) 0.7 (0-2) % Neut # (Auto) 4800 (3835-9719) /uL Lymph # (Auto) 900 L (0038-0658) /uL [place] # (Auto) 600 (0-900) /uL Eos # (Auto) 300 (0-450) /uL Baso # (Auto) 0 (0-100) /uL PT 11.0 (9.4-12.5) SECONDS INR 1.0 (0.9-1.3) APTT 30 (25.1-36.5) SECONDS Sodium 139 (137-145) mmol/L Potassium 3.9 (3.4-5.1) mmol/L Chloride 108 H (98-107) mmol/L Carbon Dioxide 24 (22-32) mmol/L BUN 15 (7-17) mg/dL Creatinine 0.72 (0.52-1.04) mg/dL Estimated GFR > 60 (>60) mL/min BUN/Creatinine Ratio 20.8 (6-22) Glucose 168 H (80-110) mg/dL Calcium 8.7 (8.4-10.2) mg/dL Magnesium 1.7 (1.6-2.3) mg/dL Total Bilirubin 0.6 (0.2-1.3) mg/dL AST 42 H (14-36) IU/L ALT 30 (<35) IU/L Alkaline Phosphatase 62 (38-126) U/L Total Creatine Kinase 99 (30-135) U/L Troponin I < 0.012 (0.01-0.034) ng/mL Total Protein 7.6 (6.3-8.2) g/dL Albumin 4.4 (3.5-5.0) g/dL Globulin 3.2 (1.7-4.1) g/dL Albumin/Globulin Ratio 1.4 (1.0-2.8) Urine RBC 1-5/hpf (0-5/HPF) Urine WBC None seen (0-5/HPF) Ur Squamous Epith Cells None seen (0-5/HPF) Urine Bacteria None seen (None) Ur Culture Indicated? Cult not indicated Vol Urine Centrifuged 10ml (spun) U Opiates 300ng/mL cut Negative (Negative) Ur Oxycodone Screen Negative (Negative) Urine Methadone Screen Negative (Negative) Ur Barbiturates Screen Negative (Negative) U Tricyclic Antidepress Negative (Negative) Ur Phencyclidine Scrn Negative (Negative) Ur Amphetamines Screen Negative (Negative) U Methamphetamines Scrn Negative (Negative) Ur MDMA Scrn (Ecstasy) Negative (Negative) U Benzodiazepines Scrn Negative (Negative) Urine Cocaine Screen Negative (Negative) U Marijuana (THC) Screen Negative (Negative) Urine pH Normal (Normal) Urine Specific [place] Normal (Normal) Ur Creatinine Normal (Normal) Point of Care Testing Glucose POC 95 Urine Dip Bedside Urine Glucose Negative Bedside Urine Bilirubin - Negative Bedside Urine Ketone - Negative Urine Specific [place] 1.005 Bedside Urine Occult Blood ++ Bedside Urine pH 6.5 Bedside Urine Protein - Negative Bedside Urine Urobilinogen - Negative Bedside Urine Nitrite - Negative Bedside Urine Leukocytes - Negative Esterase MDM Narrative Medical decision making narrative: CC: 48 hours of left upper extremity paresthesia without weakness Complicating co-morbidities: Diabetes, hypertension, hyperlipidemia, chronic kidney disease Data collected from: patient Social determinants of health that may influence the patients condition: Medical records reviewed: Primary care notes reviewed Differential considered: Stroke, TIA, metastatic lesion, brachial plexopathy Exam documented above, pertinent findings include: Mild left upper extremity weakness as the main abnormality on her exam Lab Test results independently reviewed as above. Pertinent findings: CBC is unremarkable Chemistries are reassuring Troponin is undetectable Independently reviewed EKG: Sinus rhythm at a rate of 57, no acute ischemic changes Imaging studies independently reviewed: CT scan of the head does not show acute injury. Noted prominent microvascular atherosclerotic changes in the deep white matter of each hemisphere. Discussion: 78-year-old woman with more than 48 hours of left upper extremity weakness without significant paresthesia. NIH score of 1. Initial CT scan is unremarkable. CT angiogram of the head and neck pending. Given the most likely explanation of stroke now at 48 hours with persistent left upper extremity weakness we will talk to the hospitalist service about having her admitted for further workup and evaluation. She is well outside the time window for tPA or LVO intervention if identified. Discharge Plan Departure Patient Disposition: Admitted as Observation Clinical Impression: Stroke Qualifiers: CVA mechanism: unspecified Qualified Code(s): I63.9 - Cerebral infarction, unspecified
--- NOTE | 2024-02-19 12:00 | PC.NURSE ---
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
[2024-02-19 12:35] LABS: Ur Creatinine Normal (Normal); Ur Specific Gravity Normal (Normal); Urine Amphetamines Negative (Negative); Urine Barbiturates Negative (Negative); Urine Benzodiazepines Negative (Negative); Urine Cocaine Negative (Negative); Urine MDMA Negative (Negative); Urine Methadone Negative (Negative); Urine Methamphetamines Negative (Negative); Urine Opiates Negative (Negative); Urine Oxycodone Negative (Negative); Urine Phencyclidine Negative (Negative); Urine THC Negative (Negative); Urine Tricyclic Antidepressant Negative (Negative); Urine pH Normal (Normal)
[2024-02-19 12:39] LABS: Bacteria Urine None Seen; RBC Urine 1-5/HPF (0-5/HPF); Urine Volume 10mL (spun); WBC Urine None Seen (0-5/HPF)
[2024-02-19 12:40] LABS: Culture Indicated Urine Cult Not Indicated; Squamous Epithelial Cell Urine None Seen (0-5/HPF)
--- NOTE | 2024-02-19 13:02 | DI.CT.S_ITS ---
PROCEDURE: CT ANGIO HEAD AND NECK INDICATIONS: stroke TECHNIQUE: After the administration of intravenous contrast, 1 mm thick sections acquired from the aortic arch through the [place] of [place]. 3-dimensional [id number] (MIP) and/or volume rendering reformats were acquired of the central intracranial vasculature and neck separately. For radiation dose reduction, the following was used: automated exposure control, adjustment of mA and/or kV according to patient size. COMPARISON: [facility], CT, CT HEAD/BRAIN WO CON, 02/19/2024, 10:10. FINDINGS: Image quality: Diagnostic. BRAIN: CSF spaces: Ventricles are normal in size and shape. Basal cisterns are patent. No extra-axial fluid collections. Brain: No significant abnormality of the brain can be seen. Skull and face: Calvarium and facial bones appear intact, without suspicious lesions. Orbits appear normal. Sinuses: Sinuses and mastoids are clear. HEAD CT ANGIOGRAPHY: Anterior circulation: Intracranial internal carotid arteries are normal in size and flow. The flow within the paired anterior cerebral arteries is normal and symmetric. The flow within the middle cerebral arteries is normal and symmetric. The anterior communicating artery is seen. No aneurysms are seen. Posterior circulation: Distal intracranial portion of left vertebral artery is normal in size and flow. Distal intracranial portion of right vertebral artery is not visualized. There is a normal appearing basilar artery. Flow within the posterior cerebral arteries is normal and symmetric. No aneurysms are seen. NECK CT ANGIOGRAPHY: Carotid system: The great vessels demonstrate a conventional anatomy as they arise from the aortic arch. The origins of the common carotid arteries appear patent. The common carotid arteries demonstrate normal caliber and courses. The bifurcation regions are both widely patent. The internal carotid arteries demonstrate normal calibers and courses. Posterior circulation: The origins of the vertebral arteries both appear widely patent. Dominant left vertebral artery. The more superior extracranial portions of both vertebral arteries also demonstrate normal courses and calibers. They join to form a normal appearing basilar artery. Soft tissues: Visualized neck soft tissues demonstrate no suspicious abnormalities. Bones: No suspicious bony lesions. Visualized cervical spine appears normally aligned. IMPRESSION: 1. Nonvisualization of most distal intracranial portion of right vertebral artery which may represent congenital absence versus occlusion. 2. No hemodynamically significant stenosis or aneurysm is seen in rest of the intracranial circulation. 3. 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 No hemodynamically significant stenosis is seen in bilateral neck arteries. Any quantitative measurements of stenosis were performed using NASCET criteria. Dictated by: Jonny Newman M.D. on 02/19/2024 at 13:53 Approved by: Jonny Newman M.D. on 02/19/2024 at 13:58
--- NOTE | 2024-02-19 15:38 | PM.HP.1 ---
History of Present Illness History of Present Illness Date Patient Seen: 02/19/24 Chief complaint: weakness, tingling L hand/arm Narrative: The patient was a 78-year-old female with history of diabetes 2, hypertension, hyperlipidemia, asthma, lung cancer, and chronic kidney disease. She presents today to the ED with a complaint of weakness in the left arm which has been ongoing for about 2 days. She was no weakness in her leg and denies any headache, or recent head trauma. She was no history of TIA or stroke. In the emergency department, she was found to have arm weakness. She does not take chronic antiplatelet therapy or anticoagulation. She scored a 1 on NIH for a left arm drift. She notes these symptoms have been ongoing for 2 days and really only affected her hand. She had no face or mouth symptoms. And really even her elbow forearm and upper arm were not affected. 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 She can extend and flex at the wrist. She was a chronically unstable gait owing to knee issues and knee replacements but feels that her strength is normal. She was in [place], does not smoke and never has. Her father did have a stroke at age 50. She has a multitude of other risk factors as noted above. Her symptoms have been static and not getting worse really or better. No headache. [facility] Medical History Right shoulder pain Osteoarthritis Asthma Adenocarcinoma of left lung (~11/2016) DJD (degenerative joint disease) of knee Gout Hyperlipemia Hypertension Impaired fasting glucose (07/09/10) Surgical History Cataract extraction status of right eye History of lobectomy of lung (~12/2016) Hx of tubal ligation Social History household members: spouse and significant other Smoking Status: Never smoker second hand exposure: No alcohol intake: current substance use type: does not use Meds Home Medications and Allergies Home Medications Medication Instructions Recorded Confirmed Type calcium carbonate (Tums Ultra) 1,000 mg PO QDAY ##0 12/03/16 02/19/24 History magnesium oxide 250 mg PO DAILY 03/22/21 02/19/24 History diphenhydramine 25 1 tab PO BEDTIME PRN Insomnia 12/09/22 02/19/24 History mg-acetaminophen 500 mg tablet (Tylenol PM Extra Strength) alpha lipoic acid 600 mg tablet 600 mg PO DAILY 06/10/23 02/19/24 History cholecalciferol (vitamin D3) 25 25 mcg PO DAILY 06/10/23 02/19/24 History mcg (1,000 unit) capsule cinnamon bark extract 500 mg tablet 500 mg PO DAILY 06/10/23 02/19/24 History inulin 2 gram chewable tablet 2 g PO DAILY 06/10/23 02/19/24 History (Fiber Gummies) melatonin 5 mg capsule 5 mg PO BEDTIME PRN Insomnia 06/10/23 02/19/24 History naphazo HCl-hpm-ps 80-Zn sulf 1 drp EYE-BOTH DAILY 06/10/23 02/19/24 History [Clear Eyes Complete] omega-3 fatty acids [Fish Oil] 1 cap PO DAILY 06/10/23 02/19/24 History psyllium husk 0.4 gram capsule 0.4 g PO DAILY 06/10/23 02/19/24 History (Daily Fiber) ciclesonide 80 mcg/actuation 1 puff inhalation DAILY #6.1 grams 06/16/23 02/19/24 Rx aerosol inhaler (Alvesco) metoprolol tartrate 100 mg tablet 50 mg (1/2 x 100 mg) PO BID #90 06/16/23 02/19/24 Rx tabs ramipril 10 mg capsule 10 mg PO BID #180 caps 06/16/23 02/19/24 Rx simvastatin 40 mg tablet 40 mg PO ONCE PM #90 tabs 06/16/23 02/19/24 Rx metformin 500 mg tablet 500 mg PO BIDWMEAL #180 tabs 11/11/23 02/19/24 Rx albuterol sulfate 90 mcg/actuation 2 puff inhalation Q6H PRN wheezing 02/19/24 02/19/24 History aerosol inhaler amlodipine 2.5 mg tablet 2.5 mg PO DAILY 02/19/24 02/19/24 History Allergies Allergy/AdvReac Type Severity Reaction Status Date / Time oxycodone AdvReac Severe Hallucinati Verified 02/19/24 09:59 ng hydrochlorothiazide AdvReac Intermediate causes gout Verified 02/19/24 09:59 [HYDROCHLOROTHIAZIDE] adhesive tape [ADHESIVE TAPE] AdvReac Mild (AFTER Verified 02/19/24 09:59 NEEDLE BIOPSY 10/2016) REDNESS AND SMALL BLISTERS Review of Systems Review of Systems Narrative: All else reviewed and otherwise unremarkable except as noted in the history and physical. Exam Vital Signs (past 8 hours): - 02/19/24 09:59 02/19/24 12:00 02/19/24 12:29 Temperature 97.3 F L Pulse Rate 63 58 L Respiratory Rate 14 Blood Pressure 177/77 H 179/85 H Pulse Oximetry 99 99 Oxygen Delivery Method Room Air 02/19/24 12:29 02/19/24 12:30 02/19/24 12:30 Temperature Pulse Rate 61 60 Respiratory Rate 20 18 Blood Pressure 197/84 H 179/84 H Pulse Oximetry 99 98 Oxygen Delivery Method 02/19/24 13:00 02/19/24 13:01 02/19/24 13:01 Temperature Pulse Rate 57 L 57 L Respiratory Rate 20 21 Blood Pressure 173/76 H Pulse Oximetry 98 99 Oxygen Delivery Method 02/19/24 13:30 02/19/24 13:43 02/19/24 13:43 Temperature Pulse Rate 63 64 Respiratory Rate 21 23 Blood Pressure 192/83 H Pulse Oximetry 99 98 Oxygen Delivery Method 02/19/24 14:00 02/19/24 14:00 02/19/24 14:40 Temperature Pulse Rate 62 63 Respiratory Rate 20 18 Blood Pressure 177/81 H 157/70 H Pulse Oximetry 99 99 Oxygen Delivery Method Oxygen Delivery Method Room Air Narrative Exam Narrative: NAD, alert and oriented, fluent speech, calm. Normocephalic skull, EOMI, anicteric sclera, symmetric pupils. Oropharynx unremarkable, no droop. Neck supple, midline trachea, no adenopathy. Lungs clear, normal rate and effort. Heart regular, no murmur gallop or rub. Abdomen is soft, non distended and non tender. Extremities are free of edema. Skin is free of rash or lesions. Joints are not swollen or deformed. Judgment appears to be normal. Neuro: CN 2 through 12 are normal. Speech is normal. Judgment is normal. Motor strength in both legs is unremarkable including dorsiflexion, plantar flexion, great toe extension, as well as straight leg raising. Arm strength in both arms is normal with the exception of her left hand which has curled 3rd 4th and 5th fingers which she can not extend. Wrist extension and flexion, elbow extension and flexion are normal. She was able to abduct without difficulty the shoulder. Objective ECG Impression: Sinus bradycardia Imaging Multiple studies:: Radiologist's impression: Chest x-ray: No acute cardiopulmonary abnormality is seen. Chronic mild interstitial prominence. Head CT: Prominent microvascular atherosclerotic change in the deep white matter of each hemisphere, but no definite acute or subacute ischemic injury. Brain MR imaging may detect ischemic injury without mass effect that is not visible by this ebonie Head and neck CTA: 1. Nonvisualization of most distal intracranial portion of right vertebral artery which may represent congenital absence versus occlusion. 2. No hemodynamically significant stenosis or aneurysm is seen in rest of the intracranial circulation. 3. 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 No hemodynamically significant stenosis is seen in bilateral neck arteries. Labs 02/19/24 10:15 02/19/24 10:15 Labs: Laboratory Results - last 24 hr 02/19/24 02/19/24 10:15 12:00 WBC 6.6 RBC 4.07 Hgb 12.7 Hct 37.9 MCV 93.1 MCH 31.2 MCHC 33.5 RDW 13.8 Plt Count 250 Neut % (Auto) 72.6 Lymph % (Auto) 13.6 L [place] % (Auto) 8.4 Eos % (Auto) 4.7 H Baso % (Auto) 0.7 Neut # (Auto) 4800 Lymph # (Auto) 900 L [place] # (Auto) 600 Eos # (Auto) 300 Baso # (Auto) 0 PT 11.0 INR 1.0 APTT 30 Sodium 139 Potassium 3.9 Chloride 108 H Carbon Dioxide 24 BUN 15 Creatinine 0.72 Estimated GFR > 60 BUN/Creatinine Ratio 20.8 Glucose 168 H Calcium 8.7 Magnesium 1.7 Total Bilirubin 0.6 AST 42 H ALT 30 Alkaline Phosphatase 62 Total Creatine Kinase 99 Troponin I < 0.012 Total Protein 7.6 Albumin 4.4 Globulin 3.2 Albumin/Globulin Ratio 1.4 Urine RBC 1-5/hpf Urine WBC None seen Ur Squamous Epith Cells None seen Urine Bacteria None seen Ur Culture Indicated? Cult not indicated Vol Urine Centrifuged 10ml (spun) U Opiates 300ng/mL cut Negative Ur Oxycodone Screen Negative Urine Methadone Screen Negative Ur Barbiturates Screen Negative U Tricyclic Antidepress Negative Ur Phencyclidine Scrn Negative Ur Amphetamines Screen Negative U Methamphetamines Scrn Negative Ur MDMA Scrn (Ecstasy) Negative U Benzodiazepines Scrn Negative Urine Cocaine Screen Negative U Marijuana (THC) Screen Negative Urine pH Normal Urine Specific [place] Normal Ur Creatinine Normal Assessment & Plan Assessment & Plan narrative: Ischemic stroke, present on admission and active. Dm 2, present on admission and stable. Hypertension, present on admission and active. HLD, present on admission and active. Previous history of lung cancer, not active. Asthma, stable. Plan: -MRI brain rule out stroke. -2D echo -dual antiplatelet therapy, as well as high-dose statin. -PT and OT assessments -permissive hypertension Time-Based Coding :: 35 min spent with patient and on the chart (including review of chart, obtaining history, exam, reviewing outside data, placing orders, documenting exam and treatment plan, and counseling patient) on 02/18. Quality MIPS - Admit I confirm the patient?s Advance Care Plan is present, Code status is documented, Surrogate decision maker is in patient?s record [If Yes, STOP here]: Yes MIPS - Meds 'Current medications' to include all prescriptions, [id number] products, herbals, cannabis/cannabidiol products, and vitamin/mineral/dietary (nutritional) supplements. I have utilized all available resources to obtain, update, or review the patient?s current medications. [If Yes, STOP here]: Yes
--- NOTE | 2024-02-19 16:12 | DI.MRI.S_ITS ---
PROCEDURE: MR HEAD/BRAIN WO CON INDICATIONS: Stroke TECHNIQUE: Non-contrast axial T1 spin echo, axial T2 fast spin echo, sagittal and axial FLAIR, coronal T2 fast spin echo, axial gradient echo, axial diffusion and ADC through the brain. COMPARISON: [facility], CT, CT HEAD/BRAIN WO CON, 02/19/2024, 10:10. [facility], CT, CT ANGIO HEAD AND NECK, 02/19/2024, 13:08. FINDINGS: Image quality: Excellent. CSF spaces: Ventricles appear symmetric in size and shape. Basal cisterns are patent. No extra-axial fluid collections. Brain: There is a 1 cm focus of abnormal diffusion-weighted signal within the deep white matter of the right frontal lobe, as4 on series 11, image 73. There is associated dark signal seen on the ADC map at this site. Likely developing T2 weighted signal can be seen at this site. No intracranial bleeds or mass effects. There is cerebral volume loss for age. There are periventricular and deep white matter chronic small vessel ischemic changes. Brainstem appears normal. No chronic ischemic insults. Normal intravascular flow voids are present. Skull and face: Calvarial bone marrow is normal in signal. Orbits are normal. Note is made of bilateral lens replacements. Sinuses: There is moderate mucosal thickening within the ethmoid air cells, with milder mucosal thickening seen elsewhere within the paranasal sinuses. No abnormal fluid is seen within the mastoid air cells. IMPRESSION: 1 cm focus of subacute infarction within the deep white matter of the right frontal lobe. Dictated by: Marcello Mann M.D. on 02/19/2024 at 17:52 Approved by: Marcello Mann M.D. on 02/19/2024 at 17:56
--- NOTE | 2024-02-19 16:12 | DI.ECHO.S_ITS ---
[facility] : : [address] : : [place] : : [id number] : : Phone: [phone] Echocardiogram Report + + :Name: MARCIA MAYS Study Date: 02/19/2024 Height: 58 in : :[facility] ReadingLocation: Weight: 185 lb : : Gender: Female BSA: 1.8 m2 : :: 1945 Age: 78 yrs BP: 155/70 mmHg: :Reason For Study: STROKE : :Ordering Physician: TAMICA, : :DEBRA Johansen Performed By: Vitaly Mittal : :Referring: DEBRA DAVEY : + + Interpretation Summary Darvin sinus rhythm. EF is 60-65%. Severe LA enlargement and moderate RA enlargement. No significant valvular abnormalities. No source of embolism found. Compared to prior echo 10/13/2015 no changes have occurred. Procedure: A two-dimensional transthoracic echocardiogram with color flow and Doppler was performed. The study quality was technically good. Comparison is made with the echocardiogram of 10/13/2015. The patient was in normal sinus rhythm during the exam. Left Ventricle: The left ventricle is normal in size. There is normal left ventricular wall thickness. There is no ventricular septal defect visualized. The ejection fraction is estimated to be 60-65%. There are no focal wall motion abnormalities. Diastolic parameters suggest probable normal left ventricular diastolic function and normal filling pressures. Right Ventricle: The right ventricle is normal in size and function. Atria: The left atrium is severely dilated. The right atrium is moderately dilated. There is no Doppler evidence for an atrial septal defect. Mitral Valve: The mitral valve leaflets appear mildly thickened, but open well. The mitral valve leaflets are mildly calcified. There is trace mitral regurgitation. Aortic Valve: The aortic valve is trileaflet. The aortic valve is mildly calcified. The aortic valve opens well. No aortic regurgitation is present. Tricuspid Valve: The tricuspid valve leaflets are thin and pliable. There is mild tricuspid regurgitation. The right ventricular systolic pressure is estimated to be at least 40 mmHg based on an estimated right atrial pressure of 3 mm Hg. Pulmonic Valve: The pulmonic valve leaflets are thin and pliable; valve motion is normal. There is no pulmonic valvular regurgitation. Great Vessels: The aortic root is normal size. The dimensions of the ascending aorta are normal. The pulmonary artery is normal size. The IVC is of normal diameter and collapses greater than 50% with a sniff. This suggests a low right atrial pressure of 3 mm Hg. Pericardium/ Pleura There is no pericardial effusion. There is no pleural effusion. MMode/2D Measurements & Calculations LVIDd: 4.5 cm LVOT diam: 2.1 cm LVIDs: 3.0 cm Ao root diam: 3.5 cm FS: 33.1 % asc Aorta Diam: 3.3 cm EPSS: 0.49 cm IVSd: 1.0 cm LVPWd: 0.95 cm LV cochran. diameter/BSA (cm/m^2): 2.6 LV sys. diameter/BSA (cm/m^2): 1.7 LA A2 area: 29.7 cm2 RA long axis: 6.2 cm LA A4 area: 23.8 cm2 RA area: 24.9 cm2 LA length (vol): 6.2 cm RA vol: 84.7 ml LA vol: 96.3 ml RA : 48.1 ml/m2 LA vol index: 54.6 ml/m2 IVC diam: 1.8 cm RVD1 (basal): 3.4 cm RVD2 (mid): 2.8 cm TAPSE: 3.4 cm Doppler Measurements & Calculations Ao V2 max: 139.2 cm/sec LVOT Max Maximiliano: 98.4 cm/sec Ao V2 mean: 93.5 cm/sec LV V1 max P.9 mmHg Ao max P.7 mmHg LV V1 VTI: 24.7 cm Ao mean P.1 mmHg JANIS(I,D): 2.6 cm2 Ao V2 VTI: 32.7 cm JANIS(V,D): 2.4 cm2 sev ratio: 0.75 JANIS indexed to BSA (cm^2/m^2): 1.5 MV E max maximiliano: 101.1 cm/sec TR max maximiliano: 303.2 cm/sec MV A max maximiliano: 56.9 cm/sec TR max P.8 mmHg MV E/A: 1.8 PA V2 max: 65.6 cm/sec Med Peak E' Maximiliano: 7.0 cm/sec PA V2 mean: 40.3 cm/sec E/E' med: 14.4 PA mean P.76 mmHg Lat Peak E' Maximiliano: 8.0 cm/sec PA pr(Accel): 44.7 mmHg E/E' lat: 12.6 E/e' average: 13.5 MV dec time: 0.21 sec SV(LVOT): 84.1 ml Electronically signed by: Audra Calhoun M.D. on Reading Physician:02/19/2024 05:25 PM
[2024-02-19] MEDS: HEPARIN 5,000 UNIT/ML VIAL 5000 UNIT SUBCUT (20:11)
[2024-02-19] MEDS: ATORVASTATIN 20 MG TABLET 80 MG PO (20:11)
[2024-02-19] MEDS: ACETAMINOPHEN 325 MG TABLET 650 MG PO (20:20)
[2024-02-20] VITALS: BP 131/44; PULSE 62; RESP 18; TEMP 37; O2SAT 97
[2024-02-20 04:00] VITALS: BP 149/70; PULSE 72; RESP 18; TEMP 37; O2SAT 97
[2024-02-20 04:50] LABS: Add Manual Diff / Slide Review NO; Basophils Absolute Auto 200 /uL (0-100); Basophils Percent Auto 2.8 % (0-2); Eosinophils Absolute Auto 300 /uL (0-450); Eosinophils Percent Auto 5.3 % (2-4); Hematocrit 34.2 % (36-46); Hemoglobin 11.6 g/dL (12.0-16.0); Lymphocytes Absolute Auto 1300 /uL (1100-4500); Lymphocytes Percent Auto 25.2 % (25-40); Mean Corpuscular HGB Conc 33.8 % (30-36); Mean Corpuscular Hemoglobin 31.3 PG (26-34); Mean Corpuscular Volume 92.6 fL (80-100); Monocytes Absolute Auto 400 /uL (0-900); Monocytes Percent Auto 8.2 % (3-14); Neutrophils Absolute Auto 3100 /uL (1500-7000); Neutrophils Percent Auto 58.5 % (50-75); Platelet Count 206 X10^3/uL (150-400); Red Blood Cell Count 3.69 X10^6/uL (4.0-5.2); Red Cell Distribution Width 14.3 % (11.6-14.8); White Blood Cell Count 5.3 X10^3/uL (4.5-11.0)
[2024-02-20 05:04] LABS: BUN Creatinine Ratio 16.5 (6-22); Blood Urea Nitrogen 14 mg/dL (7-17); Calcium 8.7 mg/dL (8.4-10.2); Carbon Dioxide 28 mmol/L (22-32); Chloride 107 mmol/L (98-107); Estimated Glomerular Filt Rate > 60 mL/min (>60); Glucose 112 mg/dL (80-110); HEMOLYSIS < 15 (0-50); Hemoglobin A1C% w Est Avg Glu 5.8 % (4.0-6.0); Potassium 3.6 mmol/L (3.4-5.1); Sodium 138 mmol/L (137-145)
[2024-02-20 05:33] LABS: Thyroid Stimulating Hormone 2.76 uIU/mL (0.47-4.68)
[2024-02-20 08:00] VITALS: BP 153/68; PULSE 71; RESP 18; TEMP 36.1; O2SAT 98
--- NOTE | 2024-02-20 08:28 | P.DS_ITS ---
History of Present Illness History of Present Illness Date Patient Seen: 02/20/24 Time Patient Seen: 08:20 Date of Onset of Symptoms: 02/19/24 Chief complaint: weakness, tingling L hand/arm Narrative: The patient was a 78-year-old female with history of diabetes 2, hypertension, hyperlipidemia, asthma, lung cancer, and chronic kidney disease. She presents today to the ED with a complaint of weakness in the left arm which has been ongoing for about 2 days. She was no weakness in her leg and denies any headache, or recent head trauma. She was no history of TIA or stroke. In the emergency department, she was found to have arm weakness. She does not take chronic antiplatelet therapy or anticoagulation. She scored a 1 on NIH for a left arm drift. She notes these symptoms have been ongoing for 2 days and really only affected her hand. She had no face or mouth symptoms. And really even her elbow forearm and upper arm were not affected. 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 She can extend and flex at the wrist. She was a chronically unstable gait owing to knee issues and knee replacements but feels that her strength is normal. She was in [place], does not smoke and never has. Her father did have a stroke at age 50. She has a multitude of other risk factors as noted above. Her symptoms have been static and not getting worse really or better. No headache. Discharge Providers Provider Date of admission: 02/19/24 14:53 Discharge Date: 02/20/24 Primary care physician: Jelena Odell DO Consults: 02/19/24 16:11 Consult to Discharge Planning Routine Comment: Consult to Occupational Therapy Evaluate & Treat Comment: Physician Instructions: Evaluate and treat Consult to Physical Therapy Evaluate & Treat Comment: Physician Instructions: Evaluate and Treat Consult to Speech Therapy Evaluate & Treat Comment: Physician Instructions: Evaluate and treat Discharge provider: Bobby Betancur MD Summary Hospital Course Discharge Diagnosis: 1. Acute right frontal lobe ischemic stroke, with residual left hand weakness and paresthesia 2. Cerebrovascular disease 3. Diabetes mellitus, type 2 4. Hypertension 5. Hyperlipidemia 6. History of lung cancer 7. Asthma Hospital Course: 78-year-old woman under the primary care of Dr. Juliane Odell presented with 2 days of left hand weakness and was found on imaging studies to have in acute right frontal ischemic stroke. There was nonobstructive cerebrovascular disease and blood pressure was controlled on admission. She had no arrhythmias during her hospitalization though echocardiogram noted severe atrial enlargement. Consideration of outpatient 2 week ZIO patch monitoring is advised to rule out occult atrial fibrillation. She was treated with dual antiplatelet therapy, to continue on aspirin indefinitely, clopidogrel for 3 weeks, and switched from simvastatin to high-dose atorvastatin 80 mg daily, and continue her usual metformin and antihypertensive regimen as an outpatient. She was feeling well and interested in discharge home. She is referred for outpatient occupational therapy. Close outpatient follow-up was advised. The patient acknowledged understanding, agreement and appreciation of this plan of care without further questions or concerns. Status at Discharge Cognitive/behavioral status at discharge: oriented Functional status at discharge: independent ambulation Overall status at discharge: patient is progressing back to baseline Time Spent with Patient Time spent: Less than 30 minutes Exam Vital Signs (past 8 hours): - 02/20/24 04:00 Temperature 98.6 F Pulse Rate 72 Respiratory Rate 18 Blood Pressure 149/70 H Pulse Oximetry 97 Oxygen Flow Rate 0 Oxygen Delivery Method Room Air Oxygen Flow Rate 0 Narrative Exam Narrative: NAD, alert and oriented, fluent speech, calm. Normocephalic skull, EOMI, anicteric sclera, symmetric pupils. Oropharynx unremarkable, no droop. Neck supple, midline trachea, no adenopathy. Lungs clear, normal rate and effort. Heart regular, no murmur gallop or rub. Abdomen is soft, non distended and non tender. Extremities are free of edema. Skin is free of rash or lesions. Joints are not swollen or deformed. Judgment appears to be normal. Neuro: CN 2 through 12 are normal. Speech is normal. Judgment is normal. Motor strength in both legs is unremarkable including dorsiflexion, plantar flexion, great toe extension, as well as straight leg raising. Arm strength in both arms is normal with the exception of her left hand which has curled 3rd 4th and 5th fingers which she extends weakly but is able, unlike on admission. Wrist extension and flexion, elbow extension and flexion are normal. She was able to abduct without difficulty the shoulder. Objective ECG Impression: Sinus bradycardia at 57bpm, no ischemic changes. Imaging *: Radiologist's impression: 1. Chest x-ray 02/19/2024: No acute cardiopulmonary abnormality is seen. Chronic mild interstitial prominence. 2. Head CT 02/19/2024: Prominent microvascular atherosclerotic change in the deep white matter of each hemisphere, but no definite acute or subacute ischemic injury. Brain MR imaging may detect ischemic injury without mass effect that is not visible by this study. 3. Head/neck CT angiogram 02/19/2024: 1. Nonvisualization of most distal intracranial portion of right vertebral artery which may represent congenital absence versus occlusion. 2. No hemodynamically significant stenosis or aneurysm is seen in rest of the intracranial circulation. 3. 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 No hemodynamically significant stenosis is seen in bilateral neck arteries. 4. Brain MRI 02/19/2024: 1 cm focus of subacute infarction within the deep white matter of the right frontal lobe. 5. Echocardiogram 02/19/2024: Darvin sinus rhythm. EF is 60-65%. Severe LA enlargement and moderate RA enlargement. No significant valvular abnormalities. No source of embolism found. Compared to prior echo 10/13/2015 no changes have occurred. Labs 02/20/24 04:40 02/20/24 04:40 Labs: Laboratory Results - last 24 hr 02/19/24 02/19/24 02/20/24 10:15 12:00 04:40 WBC 6.6 5.3 RBC 4.07 3.69 L Hgb 12.7 11.6 L Hct 37.9 34.2 L MCV 93.1 92.6 MCH 31.2 31.3 MCHC 33.5 33.8 RDW 13.8 14.3 Plt Count 250 206 Neut % (Auto) 72.6 58.5 Lymph % (Auto) 13.6 L 25.2 [place] % (Auto) 8.4 8.2 Eos % (Auto) 4.7 H 5.3 H Baso % (Auto) 0.7 2.8 H Neut # (Auto) 4800 3100 Lymph # (Auto) 900 L 1300 [place] # (Auto) 600 400 Eos # (Auto) 300 300 Baso # (Auto) 0 200 H PT 11.0 INR 1.0 APTT 30 Sodium 139 138 Potassium 3.9 3.6 Chloride 108 H 107 Carbon Dioxide 24 28 BUN 15 14 Creatinine 0.72 0.85 Estimated GFR > 60 > 60 BUN/Creatinine Ratio 20.8 16.5 Glucose 168 H 112 H Hemoglobin A1c 5.8 Calcium 8.7 8.7 Magnesium 1.7 Total Bilirubin 0.6 AST 42 H ALT 30 Alkaline Phosphatase 62 Total Creatine Kinase 99 Troponin I < 0.012 Total Protein 7.6 Albumin 4.4 Globulin 3.2 Albumin/Globulin Ratio 1.4 TSH 2.76 Urine RBC 1-5/hpf Urine WBC None seen Ur Squamous Epith Cells None seen Urine Bacteria None seen Ur Culture Indicated? Cult not indicated Vol Urine Centrifuged 10ml (spun) U Opiates 300ng/mL cut Negative Ur Oxycodone Screen Negative Urine Methadone Screen Negative Ur Barbiturates Screen Negative U Tricyclic Antidepress Negative Ur Phencyclidine Scrn Negative Ur Amphetamines Screen Negative U Methamphetamines Scrn Negative Ur MDMA Scrn (Ecstasy) Negative U Benzodiazepines Scrn Negative Urine Cocaine Screen Negative U Marijuana (THC) Screen Negative Urine pH Normal Urine Specific [place] Normal Ur Creatinine Normal PFSH Medical History Right shoulder pain Osteoarthritis Asthma Adenocarcinoma of left lung (~11/2016) DJD (degenerative joint disease) of knee Gout Hyperlipemia Hypertension Impaired fasting glucose (07/09/10) Surgical History Cataract extraction status of right eye History of lobectomy of lung (~12/2016) Hx of tubal ligation Social History household members: spouse and significant other Smoking Status: Never smoker second hand exposure: No alcohol intake: current substance use type: does not use Discharge Plan Discharge Plan Patient Disposition: Home Provider Discharge Comment: Outpatient OT referral, followup with Dr. Odell in 1 week Discharge orders & Medications Prescriptions: New atorvastatin 20 mg Tablet 80 mg PO BEDTIME Qty: 30 0RF aspirin 81 mg Tablet,Delayed Release (Dr/Ec) 81 mg PO DAILY Qty: 30 0RF clopidogrel 75 mg Tablet 75 mg PO DAILY Qty: 21 0RF Continued calcium carbonate [Tums Ultra] 1,000 MG tablet,chewable 1,000 mg PO QDAY Qty: 0 magnesium oxide 250 mg magnesium tablet 250 mg PO DAILY cholecalciferol (vitamin D3) 25 mcg (1,000 unit) capsule 25 mcg PO DAILY omega-3 fatty acids [Fish Oil] 1 cap PO DAILY Patient Comments: 1200mg alpha lipoic acid 600 mg tablet 600 mg PO DAILY naphazo HCl-hpm-ps 80-Zn sulf [Clear Eyes Complete] 1 drp EYE-BOTH DAILY cinnamon bark extract 500 mg tablet 500 mg PO DAILY melatonin 5 mg capsule 5 mg PO BEDTIME PRN (Reason: Insomnia) Fiber Gummies 2 gram tablet,chewable 2 g PO DAILY psyllium husk [Daily Fiber] 0.4 gram capsule 0.4 g PO DAILY ramipril 10 mg capsule 10 mg PO BID Qty: 180 3RF metoprolol tartrate 100 mg tablet 50 mg PO BID Qty: 90 3RF Alvesco 80 mcg/actuation HFA aerosol inhaler 1 puff INHALATION DAILY Qty: 6.1 3RF metformin 500 mg tablet 500 mg PO BIDWMEAL Qty: 180 3RF diphenhydramine-acetaminophen [Tylenol PM Extra Strength] 25-500 mg tablet 1 tab PO BEDTIME PRN (Reason: Insomnia) amlodipine 2.5 mg tablet 2.5 mg PO DAILY albuterol sulfate 90 mcg/actuation HFA aerosol inhaler 2 puff inhalation Q6H PRN (Reason: wheezing) Discontinued simvastatin 40 mg tablet 40 mg PO ONCE PM Qty: 90 3RF Follow up/Referrals: Jelena Odell, [Primary Care Provider] - Visit Report/Discharge Packet Stand Alone Forms: Patient Portal/API, Stroke Signs & Symptoms Discharge Data Primary Care Provider: Jelena Odell Quality Stroke Contraindication Not Initiating IV-Tpa: Not indicated Onset of Symptoms Date: 02/18/24 Symptom Onset Unknown: Yes VTE Deep Vein Thrombosis/Pulmonary Embolism Present on Admission: No MIPS - Admit I confirm the patient?s Advance Care Plan is present, Code status is documented, Surrogate decision maker is in patient?s record [If Yes, STOP here]: Yes MIPS - Meds 'Current medications' to include all prescriptions, upoq-rzy-ftxyoyt products, herbals, cannabis/cannabidiol products, and vitamin/mineral/dietary (nutritional) supplements. I have utilized all available resources to obtain, update, or review the patient?s current medications. [If Yes, STOP here]: Yes MIPS - DC The patient has a history of heart transplant or Left Ventricular Assist Device (LVAD). If yes, STOP here.: No The patient has current or prior documentation of left ventricular ejection fraction (LVEF) less than or equal to 40%, or moderate or severely depressed left ventricular systolic function.: No A. The patient was prescribed or already taking an Angiotensin-Converting Enzyme (LORENZO) Inhibitor, or Angiotensin Receptor Samantha (ARB).: Yes B. The patient was prescribed or already taking a beta-samantha. [If Yes to Both A & B, STOP here]: Yes Patient not prescribed/taking LORENZO or ARB, no reason given.: No Patient not prescribed/taking beta-samantha, no reason given.: No PROFEE Charge Codes Discharge inpatient/observation: [id number]
[2024-02-20] MEDS: ASPIRIN EC 81 MG TABLET PO (09:08)
[2024-02-20] MEDS: HEPARIN 5,000 UNIT/ML VIAL 5000 UNIT SUBCUT (09:08)
[2024-02-20] MEDS: CLOPIDOGREL 75 MG TABLET PO (09:08)
--- NOTE | 2024-02-20 09:24 | ST.IPIE ---
Visit Care Team Role Provider Type Jelena Odell DO Primary Care Provider Physician Specialty: Medical Address: [address] [place] [address], [address], [place], [address] Email: [email or web address] Duran MD Emergency Provider Physician Referring Provider Specialty: Emergency Medicine Address: [address] [place] [address], [id number] Email: Daniel Peralta MD Admit Provider Physician Attending Provider Specialty: Internal Medicine Address: [address] [place] [address], [id number] Email: [email or web address] Cerebral infarction, unspecified (02/19/24) Past Medical History (Last Reviewed 02/19/24 @ 15:40 by Daniel Peralta MD) Adenocarcinoma of left lung (Medical ~11/2016) Mediastinoscopy negative, RACHEL Lobectomy 12/2016 Asthma (Medical) DJD (degenerative joint disease) of knee (Medical) Gout (Medical) Hyperlipemia (Medical) Hypertension (Medical) Impaired fasting glucose (Medical 07/09/10) Osteoarthritis (Medical) Right shoulder pain (Medical) likely arthritis, intermittent flares ST IP 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 Peralta Reason for Referral CVA Setting Assessment Location Acute Care Visit Type Note Type Initial evaluation Patient Information History Per H&P: The patient was a 78- year-old female with history of diabetes 2, hypertension, hyperlipidemia, asthma, lung cancer, and chronic kidney disease. She presents today to the ED with a complaint of weakness in the left arm which has been ongoing for about 2 days. She was no weakness in her leg and denies any headache, or recent head trauma. She was no history of TIA or stroke. In the emergency department, she was found to have arm weakness. She does not take chronic antiplatelet therapy or anticoagulation. She scored a 1 on NIH for a left arm drift . She notes these symptoms have been ongoing for 2 days and really only affected her hand. She had no face or mouth symptoms. And really even her elbow forearm and upper arm were not affected. 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 She can extend and flex at the wrist. She was a chronically unstable gait owing to knee issues and knee replacements but feels that her strength is normal. She was in [place] , does not smoke and never has . Her father did have a stroke at age 50. She has a multitude of other risk factors as noted above. Her symptoms have been static and not getting worse really or better. No headache. [facility] Medical History (Reviewed @ 15:40 by Daniel Peralta MD) Right shoulder pain Osteoarthritis Asthma Adenocarcinoma of left lung (~ 11/2016) DJD (degenerative joint disease) of knee Gout Hyperlipemia Hypertension Impaired fasting glucose (09/01) Pt referred for ST evaluation to rule out swallow/speech/ cognitive issues s/p CVA. Subjective Observations Pt sitting upright in chair with breakfast meal upon ST entering room. Pt Ox3 and denies any speech/swallow/ cognitive deficits compared to baseline since her CVA. Reported by Patient/Caregiver Pain/Discomfort No Current Diet Regular (IDDSI 7) Baseline Feeding Method Independent in self-feeding The IDDSI Framework Protocol: IDDSI.1 Objective Assessment Mental Status Alert,Responsive,Cooperative Comment Facial symmetry is symmetrical . Oral musculature appear WFL in regards to strength and ROM . Natural dentition, good condition. Food and Liquid Trials Position During Assessment Upright (90 degrees) Liquids Trialed Thin (IDDSI 0) Solid Trials Regular (IDDSI 7) Administration Type Self-feeding Oral Impairment Within functional limits Oral Phase Comments Pt consumed sausage link, scrambled eggs and about 4 oz of milk via cup. Pt exhibited adequate bite size and rate for all trials and good oral acceptance and containment. Prolonged mastication with sausage, however adequate bolus formation and control. Pharyngeal Impairment Within functional limits Pharyngeal Phase Comments No overt s/s of aspiration observed, such as coughing or choking. Pt did not report any occurrences of food stuck in throat. Clear vocal quality post swallows. Fatigue/Endurance Endurance WNL The IDDSI Framework Protocol: IDDSI.1 Findings Swallowing Function Within functional limits Severity of Swallow Impairment Within functional limits Impact on Safety and Functioning No limitations Recommendations Instrumental Assessment No Swallowing Treatment No Recommended Solids Regular (IDDSI 7) Recommended Liquids Thin (IDDSI 0) Other Recommendations ST recommends regular solids and thin liquids with the below safe swallowing strategies in place. Safety Precautions/Swallowing Remain upright (90 degrees) Recommendations during all oral intake,Upright position at least 30 minutes after meals,Small bites and sips when eating,Slow rate; swallow between bites, Alternate liquids and solids Medication Recommendations As Tolerated Discharge Recommendations Home Education Patient/Caregiver Education Described results of evaluation,Patient expressed understanding of evaluation
--- NOTE | 2024-02-20 09:46 | OT.IP.EVAL ---
Current Diagnoses Cerebral infarction, unspecified (02/19/24) Past Medical History (Last Reviewed 02/19/24 @ 15:40 by Daniel Peralta MD) Adenocarcinoma of left lung (~11/2016) Asthma DJD (degenerative joint disease) of knee Gout Hyperlipemia Hypertension Impaired fasting glucose (07/09/10) Osteoarthritis Right shoulder pain Surgical History (Last Reviewed 02/19/24 @ 15:40 by Daniel Peralta MD) Cataract extraction status of right eye History of lobectomy of lung (~12/2016) Hx of tubal ligation Occupational Therapy Inpatient Evaluation/Re-Eval M1 PT/OT-IP Prior Functional Status Start: 02/20/24 09:46 Freq: NEEDED Status: Active Protocol: Document 02/20/24 09:47 CGR (Rec: 02/20/24 09:59 CGR [id number]) Medical Review Prior Functional Status Medical History Reviewed Yes Communication Pt is an effective verbal communicator. Mobility and Gait Pt was IND in all mobility at baseline. She has a hx of L TKA in 2018 but has chosen not to have her R knee done since . Activities of Daily Living and IADL's Pt is IND in her ADLs and IADLs. 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 Social History Household Members spouse,significant other Living Arrangements House Number of Floors (Floors) One Floor Number of Stairs To Enter/Railing? no steps Home Environment High Toilet,Walk in Shower,Tub /Shower Home Equipment Four Wheel Walker,Shower Seat with Backrest,Grab Bars In Shower Employment Status Retired Additional Social History Comment Educated pt and family on placement of grab bars for safety. M2 OT-IP Current Condition Start: 02/20/24 09:46 Freq: Status: Active Protocol: Document 02/20/24 09:47 CGR (Rec: 02/20/24 09:59 CGR [id number]) Occupational Therapy Current Condition Current Condition Evaluation Date 02/20/24 Treatment Diagnosis L hand weakness, specifically finger extension of the 4th and 5th fingers. Diagnosis Onset Date 02/19/24 M3 OT- IP Subjective and Pain Start: 02/20/24 09:46 Freq: Status: Active Protocol: Document 02/20/24 09:47 CGR (Rec: 02/20/24 09:59 CGR [id number]) OT- Subjective Occupational Therapy Visit Type Type Initial Evaluation Visit Start Time 09:22 Visit Stop Time 09:46 Notes Pts and son present throughout session. OT Pain Assessment Pain When Pain Assessed At Rest Pain Present Pain Present Denied Pain M4 OT- IP ADL's Start: 02/20/24 09:46 Freq: Status: Active Protocol: Document 02/20/24 09:47 CGR (Rec: 02/20/24 09:59 CGR [id number]) OT [id number] Comments OT Self-Feeding Comments not meal time OT ADL-Grooming General Evaluation Grooming Ability Independent Areas Needing Assistance Retrieving/Set-up of Grooming Items,Face Washing Comments OT Grooming Comments standing at sink with set up OT ADL-Oral Care General Eval Oral Care Ability Independent Areas of Assistance Brushing Teeth,Retrieving/Set- Up of Items Comments Oral Care Comments standing at sink OT ADL-Dressing General Eval Lower Body Dressing Ability Independent Areas Needing Assistance Socks Comments OT Dressing Comments seated EOB OT ADL-Toileting General Evaluation Toileting Ability Independent Comments OT Toileting Comments simulated seated on toielt. Pt states she just performed prior to OT entering the room. OT ADL-Bathing Comments OT Bathing Comments not performed M5 OT- IP IADL's Start: 02/20/24 09:46 Freq: Status: Active Protocol: Document 02/20/24 09:47 CGR (Rec: 02/20/24 09:59 CGR [id number]) OT-Instrumental Activities of Daily Living Deficits IADL Deficits Identified No Deficits Home Safety Awareness Awareness of Need for Assistance at Home Good Awareness Ability to Problem Solve Emergency Able to Problem Solve Situations Medication Management Medication Management No Deficits Identified Money Management Money Management No Deficits Identified Meal Preparation Meal Preparation No Deficits Identified, Caregiver Provides Assist Remote Sensing Specialist Remote Sensing Specialist No Deficits Identified, Caregiver Provides Assist Driving Driving Comments 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 M6 OT- IP Functional Cognition Start: 02/20/24 09:46 Freq: Status: Active Protocol: Document 02/20/24 09:47 CGR (Rec: 02/20/24 09:59 R [id number]) Cognitive Factors Limiting Selfcare Function Cognitive Ability Level of Alertness Alert Patient Orientation Name,Age,Birthday,Month,Date, Year,Day of Week,Place, Situation Attention Span Ability Capable of Focused Attention, Capable of Sustained Attention OT- Vision and Hearing OT- Hearing Assessment OT- Hearing Assessment WFL OT- Vision Assessment Vision History Cataracts Visual Acuity Glasses For Reading Visual Attentiveness WFL Occular Pursuits WFL Visual Convergence WFL Visual Kramer WFL M7 OT- IP Mobility and Balance Start: 02/20/24 09:46 Freq: Status: Active Protocol: Document 02/20/24 09:47 CGR (Rec: 02/20/24 09:59 CGR [id number]) OT- Bed Mobility Assessment Supine to Sit Supine to Sit Assist Independent Sit to Supine Sit to Supine Assist Independent Scooting Scooting to Edge of Bed Independent Scooting Up and Down in Bed Independent OT-Transfer Assessment Sit to and From Stand Sit to and from Stand Independent Transfers Transfer Ability Independent Technique Transfer Destination Bed,Toilet Transfer Technique Stand Step Pivot Devices Transfer Assistive Devices Gait Belt Comments Mobility Comments Pt ambulated from bed to bathroom, then to sink and returned to bed at end of session. OT- Gait Assessment Gait Gait Assistance Required: Independent Assistive Devices Assistive Device Gait Belt Comments Gait Ability Comments Mobility around the room. OT- Balance Assessment Sitting Balance and Reactions Static Sitting Balance Ability Normal Dynamic Sitting Balance Ability Normal M8 OT- IP Objective Assessments Start: 02/20/24 09:46 Freq: Status: Active Protocol: Document 02/20/24 09:47 CGR (Rec: 02/20/24 09:59 CGR [id number]) OT Gross Range of Motion Upper Extremity Range of Motion Assessment Within Functional Limits OT Strength Upper Extremity Strength Assessment Left Impaired Shoulder 4- Elbow 4- Forearm 4- Wrist 3+ Hand 3+ to 2+ Hand Vice President Planning Strength Hand Dominance Right Comments Strength Comments Pt is grossly weak at 4-/5 but noted L drift and weakness to the L 4th and 5th fingers in extension 2+/5. OT- Coordination Assessment Upper Extremity Finger to Nose Test Within Functional Limits Finger Tapping Test Left UE Impaired OT-Muscle Tone Assessment Muscle Tone WNL Yes OT Sensation Assessment Comments Summary Comments Pt states that sensation is back to normal without tingling or numbness. Edema Edema Absent M9 OT- IP Assessment and Plan Start: 02/20/24 09:46 Freq: Status: Active Protocol: Document 02/20/24 09:47 CGR (Rec: 02/20/24 09:59 CGR [id number]) OT Summary Assessment and Plan Potential Rehabilitation Potential Excellent Analytic Complexity at Evaluation Low Summary OT Impairments Strength,Coordination Progress Towards Goals Progressing Toward Goals,Safe For Discharge Assessment Summary Pt presents as a low complexity evaluation s/p admit for new onset CVA with L hand weakness. Pt educated on UE therex for increasing her L hand function and recommended outpatient occupational therapy to improve hand movement usp. Pt states understanding. Pt also educated on placement of grab bars for increased safety in the home. Recommend d/c home with family. Frequency of Treatment Frequency Of Treatment Discharge Discharge Recommendations OT Discharge Recommendations Home Other Discharge Recommendations outpatient OT Transportation Needs at Discharge Private Vehicle
--- NOTE | 2024-02-20 11:38 | PC.NURSE ---
Patient is A&OX4, VSS, afebrile on RA. NIH is 1. She is evaluated at the bedside by hospitalist and cleared for discharge home today with outpatient OT. She verbalizes understanding of new medications, s/sx of stroke and follow up plan with PCP within the week. She is escorted via w/ch with all of her belongings at 11:15 this a.m. to private vehicle for discharge home with her .
--- NOTE | 2024-02-20 11:44 | CM.DANOTE ---
DCP Assessment Note: Pt is a 78yo female, resident [facility], is admitted for CVA. Pt lives in a house with her . Pt's Primary Care Provider is Dr. Jelena Odell and insurance is [facility]. Reviewed chart and team rounds for pt's medical status and initial discharge needs. Per hospitalist, hoping for pt to follow up with PCP and OP OT. Pt discharged before DCP was able to complete bedside assessment. DCP sent handoff to Transitional Care Management team for PCP follow up and OP OT. Plan: Pt discharged home with spouse to transport, TCM team to follow with PC/OP OT follow up. CM team will follow closely for coordination of discharge plans. Karlee Hernandez [facility] Discharge Planning/Care Management CM Discharge Assessment Start: 02/20/24 11:42 Freq: Status: Discharge Protocol: Document 02/20/24 11:42 MW (Rec: 02/20/24 11:44 MW [id number]) Discharge Planning Assessment Assigned [employer] Platemaker YEN Desir DPOA/Assigned Designee Name [employer] Contact Information [phone] Advance Directives? Yes Advance Directives on File No History Provided By Patient,Family Member,Medical Record Prior Living Arrangements House Household Members spouse,significant other Independent with ADL's Yes Is patient alert and oriented? Yes Discharge Plan Home Transportation Arrangement Spouse can provide transport home at d/c. Referrals Initiated None needed Please Provide Date Initial DC 02/20/24 Assessment Was Performed
== END 2024-02-20 11:15 | disposition home or self-care (01) ==
LOC: ED 13:02 → AC 15:12
PROVIDERS: Admitting Provider Hospitalist; Emergency Provider Emergency Medicine; PCP Family Medicine; Referring Provider Emergency Medicine; Visit Provider Hospitalist
DX: I63.89 Other cerebral infarction (principal); G83.24 Monoplegia of upper limb affecting left nondominant side; I10 Essential (primary) hypertension; I12.9 Hypertensive chronic kidney disease with stage 1 through stage 4 chronic kidney disease, or unspecified chronic kidney disease; E11.22 Type 2 diabetes mellitus with diabetic chronic kidney disease; N18.9 Chronic kidney disease, unspecified; Z79.4 Long term (current) use of insulin; R29.701 NIHSS score 1
CPT/HCPCS: 36415; 70450; 70496; 70498; 70551; 71045; 80048; 80053; 80305; 81003; 81015; 82550; 82962; 83036; 83735; 84443; 84484; 85025; 85610; 85730; 92610; 93005; 93306; 96372; 97165; 97535; 99285; G0378; J1644; Q9967

== ENCOUNTER 2024-03-22 10:45 | Outpatient (RCR) | payer OTHER, SELFPAY ==
[2024-02-19 15:35] VITALS: BMI 38.2
--- NOTE | 2024-03-08 13:09 | OT.OP.EVAL ---
Visit Care Team Role Provider Type Jelena Odell DO Attending Provider Physician Family Provider Primary Care Provider Referring Provider Specialty: Medical Address: [address] [place] [address], [address], [place], [address] Email: [email or web address] Occupational Therapy Initial Evaluation OT Outpatient Adult Evaluation Start: 03/08/24 12:32 Freq: Status: Active Protocol: Document 03/08/24 12:32 AMS (Rec: 03/08/24 13:08 [facility] [id number]) General Information - Adult Plan of Care Dates 03/08/24 - 05/03/24 Insurance Information Medicare Advantage; *Pre-auth all visits Visit Start Time 10:45 Visit Stop Time 11:25 Treatment Setting Outpatient Care Note Type Initial Evaluation Identification Confirmed Yes Identification Confirmed By Self Goals [employer] Developer Goals 1. Candie will be modified independent with home exercise program utilizing provided written and visual instructions as needed. 2. Candie will demonstrate improvements with L, non- dominant hand dexterity; this will be evidenced by completing the 9-HPT in 36.0 seconds or less. Assessment/Plan Treatment Assessment Candie is R hand dominant and is 78 y.o.; she was referred to outpatient secondary to stroke; non- dominant side affected ( primarily distal L L UE). Reported onset of stroke symptoms 02/17/24; she did not go to the [facility], [facility]'s ER, until 02/19/24. Medical history is significant for L TKR, lung CA, essential HTN, pre-diabetes, hyperlipidema, OA of bilateral knees, gout, chronic renal insufficiency (stage II), and receiving regular chiropractor treatments. She resides in [facility] with her ; there are no stairs in the home and/or to enter or exit. The home is equipped w/ higher toilets and 1 grab bar for bathing w/ handle attached to the bathtub to support transfer. She reports that since stroke she has returned to her normal routine ; she denies any difficulties w/ basic ADLS or instrumental ADLS. She is driving. She is retired; the couple has been residing in [place] since 1968. (+) wearing of glasses. Bruising to dorsum of L hand; unable to recall events that led to bruising. Denies any sensation changes in distal L UE. (+) L handed opposition to each digit pad w/ EO; slightly decreased accuracy w/ opposition to pads of digits w/ EC. Decreased active abduction 4th digit; reports tendency of 3rd and 4th digits to want to move together. QuickDASH UE Outcome Measure Score = 29.55. No pain/ discomfort of bilateral hands/ fingers/wrists; no pain/ discomfort reported w/ pinch/ wood heel flap inserter strength testing. Slight hyperextension of bilateral thumbs L > R at rest at MPJ. Dynamometer II Carbonizer Tester Strength Testing Results: 35.0# of force R wood heel flap inserter vs 23.0# of force L wood heel flap inserter. Pinchometer Strength Results: 5.0# of force L lateral briceño pinch (compared to 75+ female peers 11.4 +/- 2.6 # of force) vs 7.5# of force R lateral briceño pinch (compared to 75+ female peers 12.6 +/- 2 .3# of force); 4.0# of force L tip pinch (compared to 75+ female peers 9.3 +/- 2.4# of force) vs 6.0# of force R tip pinch (compared to 75+ female peers 9.6 +/- 2.8# of force); 5.0# of force L 3-jaw pinch ( compared to 75+ female peers 11.5 +/- 2.6# of force) vs 6.0 # of force R 3-jaw pinch ( compared to 75+ female peers 12.0 +/- 2.6# of force). The 9-Hole Peg Test is a timed test in which 9 pegs are inserted and removed from 9 holes in the pegboard with each hand. It is an assessment that can be used to assess hand dexterity. Candie completed the test with her L non-dominant hand in 40.9 seconds (compared to 75+ female peers norm of 24.6 +/- 4.3 seconds) and with her R dominant hand in 27.6 seconds (compared to 75+ female peers norm of 21.5 +/- 2.9 seconds). Performance with the R hand was [standard deviations from the mean] compared to same- aged peers. Performance with the L hand was [standard deviations from the mean] compared to same-aged peers. Main concern re: L hand coordination, 3rd and 4th digit dissociation and coordination. Outpatient OT rec to address L hand coordination and to develop appropriate HEP. Length of treatment (weeks) 8 Plan of Care Start Date 03/08/24 Plan of Care End Date 05/03/24 Treatment Frequency Once a Week Therapeutic Contents Active Range of Motion, Functional Activities,Home Exercise Program,Joint Protection,Education, Neurodevelopment Treatment, Neuromuscular Re-Education, Self-Care,Stretching/ Flexibility Activities, Therapeutic Activities, Therapeutic Exercises Occupational Therapy Assessment OT Outpatient Standardized Assessments Start: 03/08/24 12:32 Freq: Status: Active Protocol: Document 03/08/24 12:32 AMS (Rec: 03/08/24 13:08 AMS [id number]) Jebsen-Myra Hand Function Test Lifting Small, Common Objects Non-Dominant Hand 14.5 seconds vs 7.07 +/- 1.44 (70-79 y.o. females) Dominant Hand 8.0 seconds vs 6.91 +/- 1.29 ( 70-79 y.o. females) Stacking Checkers Non-Dominant Hand 7.1 seconds vs 5.41 +/- 1.24 ( 70-79 y.o. females) Dominant Hand 4.0 seconds vs 4.64 +/- 1.01 ( 70-79 y.o. females) Clinical Observations Clinical Observations Card Turning Results: Non-dominant hand = 14.7 seconds vs 6.05 +/- 1.07 (70- 79 y.o. females) Dominant hand = 6.8 seconds vs 5.33 +/- 1.06 (70-79 y.o. females) 9-Hole Peg Hand Test Hand Right Date of Test 03/08/24 Comments Scoring Time = 27.6 seconds vs 21.5 +/- 2.9 (75+ y.o. female norm) Left Date of Test 03/08/24 Comments Scoring Time = 40.9 seconds vs 24.6 +/- 4.3 (75+ y.o. female norm)
--- NOTE | 2024-03-15 12:38 | OT.OP.TRT ---
Visit Care Team Role Provider Type Jelena Odell DO Attending Provider Physician Family Provider Primary Care Provider Referring Provider Specialty: Medical Address: [address] [place] [address], [address], [place], [address] Email: [email or web address] Occupational Therapy Treatment Note OT Outpatient Treatment Note - Adult Start: 03/08/24 12:32 Freq: Status: Active Protocol: Document 03/15/24 12:27 AMS (Rec: 03/15/24 12:38 AMS [id number]) OT Outpatient Adult Treatment Note Session Time Visit Start Time 10:50 Visit Stop Time 11:30 Visit Information Plan of Care Dates 03/08/24 - 05/03/24 Insurance Information Medicare Advantage; *Pre-auth all visits Setting Treatment Setting Outpatient Care Visit Type Note Type Treatment Note General Information General Information Candie is R hand dominant and is 78 y.o.; she was referred to outpatient secondary to stroke; non- dominant side affected ( primarily distal L L UE). Reported onset of stroke symptoms 02/17/24; she did not go to the [facility] ER, until 02/19/24. Medical history is significant for L TKR, lung CA, essential HTN, pre-diabetes, hyperlipidema, OA of bilateral knees, gout, chronic renal insufficiency (stage II), and receiving regular chiropractor treatments. She resides in [facility] with her ; there are no stairs in the home and/or to enter or exit. The home is equipped w/ higher toilets and 1 grab bar for bathing w/ handle attached to the bathtub to support transfer. She reports that since stroke she has returned to her normal routine ; she denies any difficulties w/ basic ADLS or instrumental ADLS. She is driving. She is retired; the couple has been residing in [place] since 1968. (+) wearing of glasses. - Subjective Identification Type Name Observations Candie cont to report use of deck of cards in the home. Main concern is lack of ability to dissociate L 3rd and 4th digits with motor coordination. - Objective Objective Measurements Please refer to below for progress towards meeting established OT goals: Fpc Goals 1. Candie will be modified independent with home exercise program utilizing provided written and visual instructions as needed. 2. Candie will demonstrate improvements with L, non- dominant hand dexterity; this will be evidenced by completing the 9-HPT in 36.0 seconds or less. - Treatment 1 Descriptor Fine motor coordination/Object manipulation Purdue pegboard Golf tees, dowels and dominoes - Assessment Assessment of Improvement Candie did quite well with manipulation of components of Purdue Pegboard w/ the L hand; she also did a good job w/ vertical orientation of golf tees, dominoes on TT. However, Candie's main concern cont to be lack of ability to dissociate L 3rd and 4th digits with motor coordination . Home Exercise Program 03/15/24 = Instructed in AAROM finger abduction/adduction w/ focus on 4th digit w/ hands together at midline. Discussed options in addition to deck of cards to support L hand function (e.g., cribbage, golf tees, dominoes). - Plan Therapy Recommendations Advance per Rehabilitation Protocol
--- NOTE | 2024-03-22 12:31 | OT.OP.DC ---
Visit Care Team Role Provider Type Jelena Odell DO Attending Provider Physician Family Provider Primary Care Provider Referring Provider Address: [address] [place] [address], [address], [place], [address] Email: [email or web address] Outpatient OT Outpatient Adult Evaluation Start: 03/08/24 12:32 Freq: Status: Active Protocol: Document 03/08/24 12:32 AMS (Rec: 03/08/24 13:08 AMS [id number]) General Information - Adult Visit Information Plan of Care Dates 03/08/24 - 05/03/24 Insurance Information Medicare Advantage; *Pre-auth all visits Session Time Visit Start Time 10:45 Visit Stop Time 11:25 Setting Treatment Setting Outpatient Care Visit Type Note Type Initial Evaluation Identification Identification Confirmed Yes Identification Confirmed By Self Goals Longterm Goals Longterm Goals 1. Candie will be modified independent with home exercise program utilizing provided written and visual instructions as needed. 2. Candie will demonstrate improvements with L, non- dominant hand dexterity; this will be evidenced by completing the 9-HPT in 36.0 seconds or less. Assessment/Plan Assessment Treatment Assessment Candie is R hand dominant and is 78 y.o.; she was referred to outpatient secondary to stroke; non- dominant side affected ( primarily distal L L UE). Reported onset of stroke symptoms 02/17/24; she did not go to [facility] ER, until 02/19/24. Medical history is significant for L TKR, lung CA, essential HTN, pre-diabetes, hyperlipidema, OA of bilateral knees, gout, chronic renal insufficiency (stage II), and receiving regular chiropractor treatments. She resides [facility] ; there are no stairs in the home and/or to enter or exit. The home is equipped w/ higher toilets and 1 grab bar for bathing w/ handle attached to the bathtub to support transfer. She reports that since stroke she has returned to her normal routine ; she denies any difficulties w/ basic ADLS or instrumental ADLS. She is driving. She is retired; the couple has been residing in [place] since 1968. (+) wearing of glasses. Bruising to dorsum of L hand; unable to recall events that led to bruising. Denies any sensation changes in distal L UE. (+) L handed opposition to each digit pad w/ EO; slightly decreased accuracy w/ opposition to pads of digits w/ EC. Decreased active abduction 4th digit; reports tendency of 3rd and 4th digits to want to move together. QuickDASH UE Outcome Measure Score = 29.55. No pain/ discomfort of bilateral hands/ fingers/wrists; no pain/ discomfort reported w/ pinch/ web ui developer strength testing. Slight hyperextension of bilateral thumbs L > R at rest at MPJ. Dynamometer II Reinforcing Iron Worker Helper Strength Testing Results: 35.0# of force R web ui developer vs 23.0# of force L web ui developer. Pinchometer Strength Results: 5.0# of force L lateral briceño pinch (compared to 75+ female peers 11.4 +/- 2.6 # of force) vs 7.5# of force R lateral briceño pinch (compared to 75+ female peers 12.6 +/- 2 .3# of force); 4.0# of force L tip pinch (compared to 75+ female peers 9.3 +/- 2.4# of force) vs 6.0# of force R tip pinch (compared to 75+ female peers 9.6 +/- 2.8# of force); 5.0# of force L 3-jaw pinch ( compared to 75+ female peers 11.5 +/- 2.6# of force) vs 6.0 # of force R 3-jaw pinch ( compared to 75+ female peers 12.0 +/- 2.6# of force). The 9-Hole Peg Test is a timed test in which 9 pegs are inserted and removed from 9 holes in the pegboard with each hand. It is an assessment that can be used to assess hand dexterity. Candie completed the test with her L non-dominant hand in 40.9 seconds (compared to 75+ female peers norm of 24.6 +/- 4.3 seconds) and with her R dominant hand in 27.6 seconds (compared to 75+ female peers norm of 21.5 +/- 2.9 seconds). Performance with the R hand was [standard deviations from the mean] compared to same- aged peers. Performance with the L hand was [standard deviations from the mean] compared to same-aged peers. Main concern re: L hand coordination, 3rd and 4th digit dissociation and coordination. Outpatient OT rec to address L hand coordination and to develop appropriate HEP. Plan Length of treatment (weeks) 8 Plan of Care Start Date 03/08/24 Plan of Care End Date 05/03/24 Treatment Frequency Once a Week Therapeutic Contents Active Range of Motion, Functional Activities,Home Exercise Program,Joint Protection,Education, Neurodevelopment Treatment, Neuromuscular Re-Education, Self-Care,Stretching/ Flexibility Activities, Therapeutic Activities, Therapeutic Exercises Functional Wrist/Hand Scan Hand Side Sensory Assessment Sensory Profile2 OT Outpatient Treatment Note - Adult Start: 03/08/24 12:32 Freq: Status: Active Protocol: Document 03/22/24 12:31 AMS (Rec: 03/22/24 12:31 AMS [id number]) OT Outpatient Adult Treatment Note Session Time Visit Start Time 10:50 Visit Stop Time 11:30 Visit Information Plan of Care Dates 03/08/24 - 05/03/24 Insurance Information Medicare Advantage; *Pre-auth all visits Setting Treatment Setting Outpatient Care Visit Type Note Type Discharge Summary General Information General Information Candie is R hand dominant and is 78 y.o.; she was referred to outpatient secondary to stroke; non- dominant side affected ( primarily distal L L UE). Reported onset of stroke symptoms 02/17/24; she did not go to the [facility] ER, until 02/19/24. Medical history is significant for L TKR, lung CA, essential HTN, pre-diabetes, hyperlipidema, OA of bilateral knees, gout, chronic renal insufficiency (stage II), and receiving regular chiropractor treatments. She resides [facility] ; there are no stairs in the home and/or to enter or exit. The home is equipped w/ higher toilets and 1 grab bar for bathing w/ handle attached to the bathtub to support transfer. She reports that since stroke she has returned to her normal routine ; she denies any difficulties w/ basic ADLS or instrumental ADLS. She is driving. She is retired; the couple has been residing in [place] since 1968. (+) wearing of glasses. - Subjective Identification Type Name Observations Candie cont to report use of deck of cards in the home. Main concern is lack of ability to dissociate L 3rd and 4th digits with motor coordination. - Objective Objective Measurements Please refer to below for progress towards meeting established OT goals: Longterm Goals 1. Candie will be modified independent with home exercise program utilizing provided written and visual instructions as needed. *GOAL MET 03/22/24 2. Candie will demonstrate improvements with L, non- dominant hand dexterity; this will be evidenced by completing the 9-HPT in 36.0 seconds or less. - Treatment 1 Descriptor Fine motor coordination/Object manipulation Small clothespins. Washers. Resistant clothespins 1# to 6# of force. Marbles - Assessment Assessment of Improvement Candie denied questions re: HEP; instructed in light resistive strengthening of 4th digit abd w/ small rubberband positioned initially proximally --> moving to distal placement when able to do so (forearm pronation). Rec discharge from outpatient OT at this time. Home Exercise Program 03/15/24 = Instructed in AAROM finger abduction/adduction w/ focus on 4th digit w/ hands together at midline. Discussed options in addition to deck of cards to support L hand function (e.g., cribbage, golf tees, dominoes). - Plan Therapy Recommendations Discharge from Occupational Therapy
== END 2024-03-23 13:30 | disposition home or self-care (01) ==
LOC: OT 10:45
PROVIDERS: Family Provider Family Medicine; PCP Family Medicine; Referring Provider Family Medicine; Visit Provider Family Medicine
DX: I63.9 Cerebral infarction, unspecified (principal)
CPT/HCPCS: 97165; 97530

== ENCOUNTER → 2024-03-25 10:27 | Outpatient (CLI) | payer OTHER, SELFPAY ==
[2024-02-19 15:35] VITALS: BMI 38.2
== END ==
PROVIDERS: Family Provider Family Medicine; PCP Family Medicine; Referring Provider Physician Assistant; Visit Provider Physician Assistant
DX: I63.9 Cerebral infarction, unspecified (principal)
CPT/HCPCS: 93246; 93248

== ENCOUNTER → 2024-06-01 08:02 | Outpatient (CLI) | payer OTHER, SELFPAY ==
[2024-02-19 15:35] VITALS: BMI 38.2
--- NOTE | 2024-06-01 08:03 | DI.ECHO.S_ITS ---
[facility] : : [id number] : [place] : : [id number] : : Phone: [phone] Echocardiogram Report + + :Name: MARCIA MAYS Study Date: 06/01/2024 Height: 58 in : :Hospital ReadingLocation: Weight: 174 lb : : Gender: Female BSA: 1.7 m2 : :: 1945 Age: 78 yrs BP: 122/75 mmHg: :Reason For Study: HYPERTENSION : :Ordering Physician: Gwen LOVEformed By: Milly Sanchez : :Referring: LORAINE LOVE : + + Interpretation Summary The ejection fraction is estimated to be 60-65%. There is mild tricuspid regurgitation. The right ventricular systolic pressure is estimated to be at least 34 mmHg based on an estimated right atrial pressure of 3 mm Hg. Procedure: A two-dimensional transthoracic echocardiogram with color flow and Doppler was performed. The study quality was technically adequate. Comparison is made with the echocardiogram of 02/19/2024. The patient was in sinus rhythm with heart rates between 57-62 bpm during the exam. Left Ventricle: The left ventricle is normal in size. Left ventricular wall thickness is borderline increased. The ejection fraction is estimated to be 60-65%. Left ventricular wall motion is normal. Right Ventricle: The right ventricle is normal in size and function. Atria: The left atrium is moderately dilated. Right atrial size is normal. There is no Doppler evidence for an interatrial shunt. Mitral Valve: The mitral valve chordae are thickened and/or calcified. The mitral valve leaflets appear mildly thickened, but open well. There is trace mitral regurgitation. Aortic Valve: The aortic valve is trileaflet. The aortic valve opens well. There is no aortic valve stenosis. No aortic regurgitation is present. Tricuspid Valve: The tricuspid valve leaflets are thin and pliable. There is mild tricuspid regurgitation. The right ventricular systolic pressure is estimated to be at least 34 mmHg based on an estimated right atrial pressure of 3 mm Hg. Pulmonic Valve: The pulmonic valve leaflets are thin and pliable; valve motion is normal. There is trace pulmonic regurgitation. Great Vessels: The aortic root is normal size. The dimensions of the ascending aorta are normal. The IVC is of normal diameter and collapses greater than 50% with a sniff. This suggests a low right atrial pressure of 3 mm Hg. Pericardium/ Pleura There is no pericardial effusion. There is no pleural effusion. MMode/2D Measurements & Calculations LVIDd: 4.0 cm LVOT diam: 2.0 cm LVIDs: 2.4 cm Ao root diam: 3.5 cm FS: 38.9 % asc Aorta Diam: 3.1 cm EPSS: 0.49 cm Ao Arch Diam (Prox Trans): 2.6 cm IVSd: 0.88 cm LVPWd: 1.1 cm LV cochran. diameter/BSA (cm/m^2): 2.3 LV sys. diameter/BSA (cm/m^2): 1.4 LA A2 area: 21.6 cm2 RA long axis: 5.3 cm LA A4 area: 21.2 cm2 RA area: 18.3 cm2 LA length (vol): 5.2 cm RA vol: 53.5 ml LA vol: 75.0 ml RA : 31.1 ml/m2 LA vol index: 43.7 ml/m2 IVC diam: 1.2 cm RVD1 (basal): 3.6 cm RVD2 (mid): 2.7 cm TAPSE: 1.9 cm Doppler Measurements & Calculations Ao V2 max: 135.9 cm/sec LVOT Max Maximiliano: 85.3 cm/sec Ao V2 mean: 99.4 cm/sec LV V1 max P.9 mmHg Ao max P.4 mmHg LV V1 VTI: 19.4 cm Ao mean P.3 mmHg JANIS(I,D): 2.0 cm2 Ao V2 VTI: 30.1 cm JANIS(V,D): 1.9 cm2 sev ratio: 0.65 JANIS indexed to BSA (cm^2/m^2): 1.1 MV E max maximiliano: 94.9 cm/sec TR max maximiliano: 277.1 cm/sec MV A max maximiliano: 61.2 cm/sec TR max P.7 mmHg MV E/A: 1.5 PA V2 max: 82.0 cm/sec Med Peak E' Maximiliano: 6.7 cm/sec PA V2 mean: 58.2 cm/sec E/E' med: 14.1 PA mean P.5 mmHg Lat Peak E' Maximiliano: 8.2 cm/sec PA pr(Accel): 22.5 mmHg E/E' lat: 11.6 E/e' average: 12.9 MV dec time: 0.16 sec SV(LVOT): 58.7 ml Reading Physician:12:43 PM
== END ==
PROVIDERS: Family Provider Family Medicine; PCP Family Medicine; Referring Provider Family Medicine; Visit Provider Family Medicine
DX: I63.9 Cerebral infarction, unspecified (principal); N18.2 Chronic kidney disease, stage 2 (mild); I12.9 Hypertensive chronic kidney disease with stage 1 through stage 4 chronic kidney disease, or unspecified chronic kidney disease; I07.1 Rheumatic tricuspid insufficiency
CPT/HCPCS: 93306

== ENCOUNTER 2024-07-06 09:34 | Emergency (ER) | payer OTHER, SELFPAY ==
[2024-02-19 15:35] VITALS: BMI 38.2
[2024-07-06] VITALS (15 sets, daily range): BP systolic 150–206; BP diastolic 63–84; PULSE 57–78; RESP 13–27; TEMP 36.6; O2SAT 97–100; BMI 36.3
--- NOTE | 2024-07-06 09:41 | DI.CT.S_ITS ---
PROCEDURE: CT ANGIO HEAD AND NECK INDICATIONS: Left arm weakness TECHNIQUE: After the administration of intravenous contrast, 1 mm thick sections acquired from the aortic arch through the [place]. 3-dimensional xaxehow-njhnuynok-qexlocapkf (MIP) and/or volume rendering reformats were acquired of the central intracranial vasculature and neck separately. For radiation dose reduction, the following was used: automated exposure control, adjustment of mA and/or kV according to patient size. COMPARISON: [facility], CT, CT STROKE, 07/06/2024, 9:51. [facility], MR, MR HEAD/BRAIN WO CON, 02/19/2024, 18:03. [facility], CT, CT ANGIO HEAD AND NECK, 02/19/2024, 13:08. FINDINGS: Image quality: Diagnostic. BRAIN: See separately dictated CT head report of 07/06/2024. HEAD CT ANGIOGRAPHY: Anterior circulation: Intracranial internal carotid arteries are normal in size and flow. The flow within the paired anterior cerebral arteries is normal and symmetric. The flow within the middle cerebral arteries is normal and symmetric. The anterior communicating artery is seen. No aneurysms are seen. Posterior circulation: Left vertebral artery dominance. V4 segment of the right vertebral artery is markedly atretic, unchanged. Visualized portions of the vertebral arteries demonstrate normal caliber, and join to form a normal appearing basilar artery. Flow within the posterior cerebral arteries is normal and symmetric. No aneurysms are seen. NECK CT ANGIOGRAPHY: Carotid system: The great vessels demonstrate a conventional anatomy as they arise from the aortic arch. The origins of the common carotid arteries appear patent. The common carotid arteries demonstrate normal caliber and courses. The bifurcation regions are both widely patent. The internal carotid arteries demonstrate normal calibers and courses. Posterior circulation: The origins of the vertebral arteries both appear widely patent. The more superior extracranial portions of both vertebral arteries also demonstrate normal courses and calibers. They join to form a normal appearing basilar artery. Soft tissues: Visualized neck soft tissues demonstrate no suspicious abnormalities. Bones: No suspicious bony lesions. Visualized cervical spine appears normally aligned. IMPRESSION: Stable interval exam. No significant intracranial arterial abnormality is seen. No significant abnormality is seen within the arteries of the neck. Any quantitative measurements of stenosis were performed using NASCET criteria. Dictated by: Wendy Moran M.D. on 07/06/2024 at 10:11 Approved by: Wendy Moran M.D. on 07/06/2024 at 10:16
--- NOTE | 2024-07-06 09:41 | DI.CT.S_ITS ---
PROCEDURE: CT STROKE INDICATIONS: Left arm weakness TECHNIQUE: Noncontrast 4.5 mm thick angled axial sections acquired from the foramen magnum to the vertex, with coronal reformats. For radiation dose reduction, the following was used: automated exposure control, adjustment of mA and/or kV according to patient size. COMPARISON: [facility], MR, MR HEAD/BRAIN WO CON, 02/19/2024, 18:03. [facility], CT, CT HEAD/BRAIN WO CON, 02/19/2024, 10:10. FINDINGS: Image quality: Diagnostic. CSF spaces: Basal cisterns are patent. No extra-axial fluid collections. The ventricles are symmetric in size and shape. Brain: No intracranial bleeds or mass effect. There is cerebral volume loss, with resultant ventricular and sulcal prominence. There are periventricular and deep white matter chronic small vessel ischemic changes. There is intracranial internal carotid artery atherosclerosis. Skull and face: Calvarium and visualized facial bones appear intact, without suspicious lesions. Sinuses: Visualized sinuses demonstrate scattered areas of mucosal thickening could IMPRESSION: 1. No acute intracranial process. 2. Moderate atrophy and chronic microvascular ischemic changes. The above findings were discussed with Dr. Sloan Sanots on 07/06/2024 at 9:59 a.m. This study fulfills neurological imaging criteria for inclusion or exclusion of acute stroke therapies based on available published neurological guidelines. Dictated by: Wendy Moran M.D. on 07/06/2024 at 9:59 Approved by: Wendy Moran M.D. on 07/06/2024 at 10:00
--- NOTE | 2024-07-06 09:43 | ED.NEUROSD ---
HPI - Neuro Symptoms/Deficit General Chief Complaint: Neuro Symptoms/Deficit Stated Complaint: Left arm weakness. stroke in Jan Time Seen by Provider: 07/06/24 09:41 History of Present Illness HPI Narrative: Patient here with . Complaints sudden onset 845 this morning, 59 minutes ago, for sudden onset left arm numbness weakness. It has improved. No slurred speech facial droop. No chest pain no back pain. Patient had similar event January 2024 and was admitted for a stroke. MRI did show infarct at that time. Patient states symptoms are the same today. At this time NIH score of 0. She is on aspirin and Plavix. Related Data Home Medications Medication Instructions Recorded Confirmed magnesium oxide 250 mg PO DAILY 03/22/21 04/21/24 diphenhydramine 25 1 tab PO BEDTIME PRN Insomnia 12/09/22 04/21/24 mg-acetaminophen 500 mg tablet (Tylenol PM Extra Strength) alpha lipoic acid 600 mg tablet 600 mg PO DAILY 06/10/23 04/21/24 cholecalciferol (vitamin D3) 25 25 mcg PO DAILY 06/10/23 04/21/24 mcg (1,000 unit) capsule cinnamon bark extract 500 mg tablet 500 mg PO DAILY 06/10/23 04/21/24 inulin 2 gram chewable tablet 2 g PO DAILY 06/10/23 04/21/24 (Fiber Gummies) melatonin 5 mg capsule 5 mg PO BEDTIME PRN Insomnia 06/10/23 04/21/24 naphazo HCl-hpm-ps 80-Zn sulf 1 drp EYE-BOTH DAILY 06/10/23 04/21/24 [Clear Eyes Complete] omega-3 fatty acids [Fish Oil] 1 cap PO DAILY 06/10/23 04/21/24 albuterol sulfate 90 mcg/actuation 2 puff inhalation Q6H PRN wheezing 02/19/24 04/21/24 aerosol inhaler amlodipine 2.5 mg tablet 2.5 mg PO DAILY 02/19/24 04/21/24 psyllium husk 0.4 gram capsule 0.4 g PO DAILY PRN 03/02/24 04/21/24 (Daily Fiber) calcium carbonate (Tums Ultra) 1,000 mg PO QDAY PRN dyspepsia ##0 04/21/24 04/21/24 Previous Rx's Medication Instructions Recorded metoprolol tartrate 100 mg tablet 50 mg (1/2 x 100 mg) PO BID #90 06/16/23 tabs ramipril 10 mg capsule 10 mg PO BID #180 caps 06/16/23 metformin 500 mg tablet 500 mg PO BIDWMEAL #180 tabs 11/11/23 aspirin 81 mg tablet,delayed 81 mg PO DAILY #30 tabs 02/20/24 release atorvastatin 80 mg tablet 80 mg PO BEDTIME #90 tabs 03/23/24 clopidogrel 75 mg tablet 75 mg PO DAILY #90 tabs 03/23/24 Alvesco 80 mcg/actuation aerosol 1 puff inhalation DAILY PRN 05/26/24 inhaler (ciclesonide) shortness of breath #12.2 grams Allergies Allergy/AdvReac Type Severity Reaction Status Date / Time oxycodone AdvReac Severe Hallucinati Verified 03/02/24 13:21 ng hydrochlorothiazide AdvReac Intermediate causes gout Verified 03/02/24 13:21 [HYDROCHLOROTHIAZIDE] adhesive tape [ADHESIVE TAPE] AdvReac Mild (AFTER Verified 03/02/24 13:21 NEEDLE BIOPSY 10/2016) REDNESS AND SMALL BLISTERS Review of Systems Review of Systems Narrative: GENERAL: Negative chills, fatigue, malaise, fever, sweats. HEENT: Negative sinus pain, ear pain, sore throat RESPIRATORY: Negative dyspnea, cough CARDIOVASCULAR: Negative chest pain, palpitations GASTROINTESTINAL: Negative vomiting, nausea, abdominal pain : Negative dysuria, frequency, hematuria MUSCULOSKELETAL: Negative muscle or bony pain SKIN: Negative rash, skin lesions NEUROLOGIC: Negative slurred speech negative headache negative confusion, positive weakness, numbness ROS Unobtainable: All systems reviewed & are unremarkable except as noted in HPI and below Patient History Medical History (Updated 07/06/24 @ 12:17 by Sloan Santos MD) Acute sinusitis, unspecified (03/01/04) Unspecified chronic bronchitis (04/09/04) Abnormal lithium level in blood (10/10/04) Right shoulder pain Osteoarthritis Asthma Adenocarcinoma of left lung (~11/2016) DJD (degenerative joint disease) of knee Gout Hyperlipemia Hypertension Impaired fasting glucose (07/09/10) Surgical History Cataract extraction status of right eye History of lobectomy of lung (~12/2016) Hx of tubal ligation Social History household members: spouse and significant other Smoking Status: Unknown if ever smoked second hand exposure: No alcohol intake: current substance use type: does not use alcohol intake frequency: holidays/special occasions only Exam Narrative Exam Narrative: GENERAL: in no distress, not toxic not dyspneic HEAD: Normocephalic. EYES: Pupils equal round ENT: Mucous membranes moist. NECK: Trachea midline. CARDIOVASCULAR: Regular rate and rhythm RESPIRATORY: Clear to auscultation. Breath sounds equal bilaterally. No wheezes, rales, or rhonchi. GASTROINTESTINAL: Abdomen soft, non-tender EXTREMITIES: No gross deformities. BACK: No flank tenderness. NEURO: AOx4. Clear speech, fast exam is negative, negative pronator drift. Negative leg drift. Elevate each leg off the bed without drift. Light touch intact bilateral face arms hands. Symmetric light touch to bilateral upper extremities hands and fingers. Light touch intact to bilateral legs. SKIN: Warm and dry PSYCH: Not anxious, is cooperative Initial Vital Signs Initial Vital Signs: Vital Signs Temperature 97.8 F 07/06/24 09:35 Pulse Rate 74 07/06/24 09:35 Respiratory Rate 13 07/06/24 09:35 Blood Pressure 206/84 H 07/06/24 09:35 Pulse Oximetry 98 07/06/24 09:35 Oxygen Delivery Method Room Air 07/06/24 09:35 Scores NIH Stroke Scale Level of Conciousness: Alert, keenly responsive Ask month/age: Answers both questions correctly. Open/close eyes, close hand: Performs both tasks correctly Best gaze horizontal: Normal Visual mireles: No visual loss Facial palsy: Normal symetrical movement Left arm drift: No drift for full 10 sec Right arm drift: No drift for full 10 sec Left leg drift: No drift for full 5 sec Right leg drift: No drift for full 5 sec Limb ataxia: Absent Sensory on face/arms/legs: Normal, no sensory loss Best language: No aphasia, normal Dysarthria: Normal Extinction or inattention: No abnormality Total NIH Stroke scale score: 0 Course Orders Ordered: ED Orders 07/06/24 09:[address] angio head and neck Stat 07/06/24 09:42 Complete Blood Count AUTO DIFF Stat Comprehensive Metabolic Panel Stat PTT Partial Thromboplastin Travis Stat Prothrombin Time INR Stat Troponin & CK Cardiac Panel Stat 07/06/24 09:58 EKG-12 Lead Routine 07/06/24 10:15 MR head/brain wo con Stat Vital Signs Vital signs: Vital Signs - 8 hr 07/06/24 09:35 07/06/24 09:40 07/06/24 09:41 Temperature 97.8 F Pulse Rate 74 78 Respiratory Rate 13 Blood Pressure 206/84 H 206/84 H Pulse Oximetry 98 98 Oxygen Delivery Method Room Air 07/06/24 09:41 07/06/24 09:55 07/06/24 09:55 Temperature Pulse Rate 78 65 Respiratory Rate Blood Pressure 182/74 H Pulse Oximetry 98 99 Oxygen Delivery Method 07/06/24 10:00 07/06/24 10:03 07/06/24 10:03 Temperature Pulse Rate 66 63 Respiratory Rate 17 Blood Pressure 158/70 H Pulse Oximetry 99 99 Oxygen Delivery Method 07/06/24 10:30 07/06/24 10:31 07/06/24 10:31 Temperature Pulse Rate 58 L 58 L Respiratory Rate 15 20 Blood Pressure 161/69 H Pulse Oximetry 98 97 Oxygen Delivery Method 07/06/24 11:00 07/06/24 11:01 07/06/24 11:01 Temperature Pulse Rate 59 L 59 L Respiratory Rate 19 27 H Blood Pressure 150/63 H Pulse Oximetry 99 99 Oxygen Delivery Method 07/06/24 11:44 07/06/24 11:44 07/06/24 11:56 Temperature Pulse Rate 62 Respiratory Rate 20 Blood Pressure 166/74 H 167/78 H Pulse Oximetry 97 Oxygen Delivery Method 07/06/24 11:56 07/06/24 12:00 07/06/24 12:01 Temperature Pulse Rate 57 L 61 Respiratory Rate 18 Blood Pressure 152/81 H Pulse Oximetry 100 99 Oxygen Delivery Method 07/06/24 12:01 07/06/24 13:04 Temperature Pulse Rate 62 60 Respiratory Rate 20 20 Blood Pressure 152/81 H Pulse Oximetry 99 99 Oxygen Delivery Method Room Air MDM - Neuro Symptoms/Deficit Lab Data 07/06/24 09:42 07/06/24 09:42 Labs: Lab Results 07/06/24 Range/Units 09:42 WBC 7.1 (4.5-11.0) X10^3/uL RBC 3.70 L (4.0-5.2) X10^6/uL Hgb 11.3 L (12.0-16.0) g/dL Hct 34.0 L (36-46) % MCV 91.9 (80-100) fL MCH 30.5 (26-34) PG MCHC 33.1 (30-36) % RDW 14.3 (11.6-14.8) % Plt Count 306 (150-400) X10^3/uL Neut % (Auto) 56.5 (50-75) % Lymph % (Auto) 24.6 L (25-40) % [place] % (Auto) 13.2 (3-14) % Eos % (Auto) 4.9 H (2-4) % Baso % (Auto) 0.8 (0-2) % Neut # (Auto) 4000 (4410-8550) /uL Lymph # (Auto) 1700 (2573-5494) /uL [place] # (Auto) 900 (0-900) /uL Eos # (Auto) 400 (0-450) /uL Baso # (Auto) 100 (0-100) /uL PT 11.1 (9.4-12.5) SECONDS INR 1.0 (0.9-1.3) APTT 31 (25.1-36.5) SECONDS Sodium 142 (137-145) mmol/L Potassium 4.0 (3.4-5.1) mmol/L Chloride 105 (98-107) mmol/L Carbon Dioxide 24 (22-32) mmol/L BUN 19 H (7-17) mg/dL Creatinine 0.85 (0.52-1.04) mg/dL Estimated GFR > 60 (>60) mL/min BUN/Creatinine Ratio 22.4 H (6-22) Glucose 129 H (70-99) mg/dL Calcium 9.2 (8.4-10.2) mg/dL Total Bilirubin 0.6 (0.2-1.3) mg/dL AST 63 H (14-36) IU/L ALT 62 H (<35) IU/L Alkaline Phosphatase 111 (38-126) U/L Total Creatine Kinase 79 (30-135) U/L Troponin I < 0.012 (0.01-0.034) ng/mL Total Protein 8.0 (6.3-8.2) g/dL Albumin 4.7 (3.5-5.0) g/dL Globulin 3.3 (1.7-4.1) g/dL Albumin/Globulin Ratio 1.4 (1.0-2.8) Point of Care Testing Glucose POC [address] scan - head: Radiologist's Impression: [address] [address] [address] Scan Report Signed Patient: Candie Liu MR#: [id number] : 1945 Acct:[id number] Age/Sex: 78 / F Date of Service: 07/06/24 Loc: ED Accession Number: [id number] Procedure: CT Stroke Ordering Provider: Sloan Santos MD PROCEDURE: CT STROKE INDICATIONS: Left arm weakness TECHNIQUE: Noncontrast 4.5 mm thick angled axial sections acquired from the foramen magnum to the vertex, with coronal reformats. For radiation dose reduction, the following was used: automated exposure control, adjustment of mA and/or kV according to patient size. COMPARISON: [facility], MR, MR HEAD/BRAIN WO CON, 02/19/2024, 18:03. [facility], CT, CT HEAD/BRAIN WO CON, 02/19/2024, 10:10. FINDINGS: Image quality: Diagnostic. CSF spaces: Basal cisterns are patent. No extra-axial fluid collections. The ventricles are symmetric in size and shape. Brain: No intracranial bleeds or mass effect. There is cerebral volume loss, with resultant ventricular and sulcal prominence. There are periventricular and deep white matter chronic small vessel ischemic changes. There is intracranial internal carotid artery atherosclerosis. Skull and face: Calvarium and visualized facial bones appear intact, without suspicious lesions. Sinuses: Visualized sinuses demonstrate scattered areas of mucosal thickening could IMPRESSION: 1. No acute intracranial process. 2. Moderate atrophy and chronic microvascular ischemic changes. The above findings were discussed with Dr. Sloan Santos on 07/06/2024 at 9:59 a.m. This study fulfills neurological imaging criteria for inclusion or exclusion of acute stroke therapies based on available published neurological guidelines. Dictated by: Wendy Moran M.D. on 07/06/2024 at 9:59 Approved by: Wendy Moran M.D. on 07/06/2024 at 10:00 MRI brain: Radiologist's Impression: [address] [address] Magnetic Resonance Report Signed Patient: Candie Liu MR#: [id number] : 1945 Acct:[id number] Age/Sex: 78 / F Date of Service: 07/06/24 Loc: ED Accession Number: [id number] Procedure: MR head/brain wo con Ordering Provider: Sloan Santos MD PROCEDURE: MR HEAD/BRAIN WO CON INDICATIONS: Stroke/left arm numbness weakness TECHNIQUE: Non-contrast axial T1 spin echo, axial T2 fast spin echo, sagittal and axial FLAIR, coronal T2 fast spin echo, axial gradient echo, axial diffusion and ADC through the brain. COMPARISON: [facility], CT, CT STROKE, 07/06/2024, 9:51. [facility], CT, CT ANGIO HEAD AND NECK, 07/06/2024, 9:51. [facility], MR, MR HEAD/BRAIN WO CON, 02/19/2024, 18:03. FINDINGS: Image quality: Excellent. CSF spaces: Ventricles appear symmetric in size and shape. Basal cisterns are patent. No extra-axial fluid collections. Brain: No intracranial bleeds or mass effects. There is cerebral volume loss for age. There are periventricular and deep white matter chronic small vessel ischemic changes. Brainstem appears normal. Diffusion-weighted images show no acute infarct. No chronic ischemic insults. Normal intravascular flow voids are present. Skull and face: Calvarial bone marrow is normal in signal. Orbits are normal. Sinuses: Sinuses and mastoids are clear. IMPRESSION: 1. No acute intracranial process. 2. Moderate atrophy and chronic microvascular ischemic changes. Dictated by: Wendy Moran M.D. on 07/06/2024 at 11:50 Approved by: Wendy Moran M.D. on 07/06/2024 at 11:[address] [facility] Narrative Medical decision making narrative: Patient here with . Complaints sudden onset 845 this morning, 59 minutes ago, for sudden onset left arm numbness weakness. It has improved. No slurred speech facial droop. No chest pain no back pain. Patient had similar event January 2024 and was admitted for a stroke. MRI did show infarct at that time. Patient states symptoms are the same today. At this time NIH score of 0. She is on aspirin and Plavix Code stroke was activated After history and exam, CT head CT angiogram head and neck EKG CBC CMP troponin normal saline, likely admit, at this time patient has very low NIH score of 0 with subjective weakness numbness to the left upper extremity. [facility] Medical records reviewed: February 19, 2024 ER notes discharge summary and MRI for stroke Differential considered: Includes but not limited to stroke TIA cervical radiculopathy Lab Test results independently reviewed as above. Pertinent findings: Independently reviewed EKG normal sinus rhythm rate [address] elevation or depression Imaging studies independently reviewed: CT head, CT angiogram head and neck no acute finding, MRI brain no acute finding Consultations: 9:[address] Segura radiologist CT head without contrast no acute finding 10:14 a.m.. Spoke with [facility] tele stroke dr bae,, recommend skin MRI now. Disposition pending results of the MRI. Does not recommend any TNK or tPA given NIH score of 0 at this time. No debilitating symptoms. 12:13 p.m.. I spoke with Dr. bae again, MRIs reassuring. No acute finding. No changes to medications. Patient can be discharged home and follow up with primary care. Symptoms like hers can recrudesce from previous strokes Re-evaluations: 12:20 p.m.. Updated patient and family results. They are reassuring as well as MRI. Reviewed with them my discussion with Neurology as well. Her symptoms lasted 1.5 hours from onset. She was symptom free while in MRI. Return precautions reviewed with him. They desire discharge home. Blood pressure 152/81. It has improved without intervention. Reviewed with him that these symptoms can reoccur after a stroke with same symptoms. There is no active stroke today. Discussion: Appropriate for discharge home. Exam is reassuring. Neurology was consulted. Symptom free at time of discharge. She desires discharge home. Return precautions reviewed. Diagnosis: Left arm paresthesia Discharge Plan Departure Patient Disposition: Home Clinical Impression: Left arm numbness Instructions: DI for Transient Ischemic Attack, DI for Numbness/Tingling Activity Restrictions/Additional Instructions: Your exam and laboratory studies and imaging studies are reassuring. Your blood pressure has improved. Neurology was contacted and reviewed your results. Please do continue your home medications. Please see your family doctor this week for re-evaluation. Return if worse if any questions or concerns. Prescriptions: No Action atorvastatin 80 mg tablet 80 mg PO BEDTIME Qty: 90 3RF clopidogrel 75 mg tablet 75 mg PO DAILY Qty: 90 3RF Alvesco 80 mcg/actuation HFA aerosol inhaler 1 puff INHALATION DAILY PRN (Reason: shortness of breath) Qty: 12.2 2RF magnesium oxide 250 mg magnesium tablet 250 mg PO DAILY cholecalciferol (vitamin D3) 25 mcg (1,000 unit) capsule 25 mcg PO DAILY omega-3 fatty acids [Fish Oil] 1 cap PO DAILY Patient Comments: 1200mg alpha lipoic acid 600 mg tablet 600 mg PO DAILY naphazo HCl-hpm-ps 80-Zn sulf [Clear Eyes Complete] 1 drp EYE-BOTH DAILY cinnamon bark extract 500 mg tablet 500 mg PO DAILY melatonin 5 mg capsule 5 mg PO BEDTIME PRN (Reason: Insomnia) Fiber Gummies 2 gram tablet,chewable 2 g PO DAILY psyllium husk [Daily Fiber] 0.4 gram capsule 0.4 g PO DAILY PRN ramipril 10 mg capsule 10 mg PO BID Qty: 180 3RF metoprolol tartrate 100 mg tablet 50 mg PO BID Qty: 90 3RF metformin 500 mg tablet 500 mg PO BIDWMEAL Qty: 180 3RF diphenhydramine-acetaminophen [Tylenol PM Extra Strength] 25-500 mg tablet 1 tab PO BEDTIME PRN (Reason: Insomnia) calcium carbonate [Tums Ultra] 400 mg calcium (1,000 mg) tablet,chewable 1,000 mg PO QDAY PRN (Reason: dyspepsia) Qty: 0 amlodipine 2.5 mg tablet 2.5 mg PO DAILY albuterol sulfate 90 mcg/actuation HFA aerosol inhaler 2 puff inhalation Q6H PRN (Reason: wheezing) aspirin 81 mg Tablet,Delayed Release (Dr/Ec) 81 mg PO DAILY Qty: 30 0RF Referrals: Jelena Odell DO [Primary Care Provider] - Stand Alone Forms: Patient Portal/API/Survey
[2024-07-06 09:52] LABS: Add Manual Diff / Slide Review NO; Basophils Absolute Auto 100 /uL (0-100); Basophils Percent Auto 0.8 % (0-2); Eosinophils Absolute Auto 400 /uL (0-450); Eosinophils Percent Auto 4.9 % (2-4); Hemoglobin 11.3 g/dL (12.0-16.0); Lymphocytes Absolute Auto 1700 /uL (1100-4500); Lymphocytes Percent Auto 24.6 % (25-40); Mean Corpuscular HGB Conc 33.1 % (30-36); Mean Corpuscular Hemoglobin 30.5 PG (26-34); Mean Corpuscular Volume 91.9 fL (80-100); Monocytes Absolute Auto 900 /uL (0-900); Monocytes Percent Auto 13.2 % (3-14); Neutrophils Absolute Auto 4000 /uL (1500-7000); Neutrophils Percent Auto 56.5 % (50-75); Platelet Count 306 X10^3/uL (150-400); Red Cell Distribution Width 14.3 % (11.6-14.8); White Blood Cell Count 7.1 X10^3/uL (4.5-11.0)
--- NOTE | 2024-07-06 09:58 | EKG_ITS ---
[address] [address] Test Date: 2024-07-06 Pat Name: Candie Liu Department: Room: Gender: Female Pipeliner: eric : 1945 Requested By: Order Number: [id number] Reading MD: Arya Johnson MD Measurements Intervals [place] Rate: 62 P: 68 VT: 142 QRS: 20 QRSD: 92 T: 3 QT: 416 QTc: 422 Interpretive Statements Normal sinus rhythm Incomplete right bundle branch block Electronically Signed On 07-06-2024 15:11:56 PDT by Arya Johnson MD
[2024-07-06 09:59] LABS: Prothrombin Time 11.1 SECONDS (9.4-12.5)
[2024-07-06 10:01] LABS: PTT Partial Thromboplastin Tim 31 SECONDS (25.1-36.5)
[2024-07-06 10:04] LABS: Alanine Aminotransferase 62 IU/L (<35); Albumin 4.7 g/dL (3.5-5.0); Albumin Globulin Ratio 1.4 (1.0-2.8); Alkaline Phosphatase 111 U/L (38-126); Aspartate Aminotransferase 63 IU/L (14-36); BUN Creatinine Ratio 22.4 (6-22); Bilirubin Total 0.6 mg/dL (0.2-1.3); Blood Urea Nitrogen 19 mg/dL (7-17); Calcium 9.2 mg/dL (8.4-10.2); Carbon Dioxide 24 mmol/L (22-32); Chloride 105 mmol/L (98-107); Creatine Kinase 79 U/L (30-135); Estimated Glomerular Filt Rate > 60 mL/min (>60); Globulin 3.3 g/dL (1.7-4.1); Glucose 129 mg/dL (70-99); HEMOLYSIS 37 (0-50); Sodium 142 mmol/L (137-145)
--- NOTE | 2024-07-06 10:15 | DI.MRI.S_ITS ---
PROCEDURE: MR HEAD/BRAIN WO CON INDICATIONS: Stroke/left arm numbness weakness TECHNIQUE: Non-contrast axial T1 spin echo, axial T2 fast spin echo, sagittal and axial FLAIR, coronal T2 fast spin echo, axial gradient echo, axial diffusion and ADC through the brain. COMPARISON: [facility], CT, CT STROKE, 07/06/2024, 9:51. [facility], CT, CT ANGIO HEAD AND NECK, 07/06/2024, 9:51. [facility], MR, MR HEAD/BRAIN WO CON, 02/19/2024, 18:03. FINDINGS: Image quality: Excellent. CSF spaces: Ventricles appear symmetric in size and shape. Basal cisterns are patent. No extra-axial fluid collections. Brain: No intracranial bleeds or mass effects. There is cerebral volume loss for age. There are periventricular and deep white matter chronic small vessel ischemic changes. Brainstem appears normal. Diffusion-weighted images show no acute infarct. No chronic ischemic insults. Normal intravascular flow voids are present. Skull and face: Calvarial bone marrow is normal in signal. Orbits are normal. Sinuses: Sinuses and mastoids are clear. IMPRESSION: 1. No acute intracranial process. 2. Moderate atrophy and chronic microvascular ischemic changes. Dictated by: Wendy Moran M.D. on 07/06/2024 at 11:50 Approved by: Wendy Moran M.D. on 07/06/2024 at 11:50
[2024-07-06 10:16] LABS: Troponin I < 0.012 ng/mL (0.01-0.034)
--- NOTE | 2024-07-06 10:27 | PC.NURSE ---
Pt arrived to ED after having numbness and tingling in left arm and stated that her left thigh felt different. Ambulated with steady gait into dept. A&Ox4. PEERL. Denies changes in speech. Pt states that she has hx of stroke january 2024.
--- NOTE | 2024-07-06 12:02 | PC.NURSE ---
Pt states numbness in arm has resolved. A&Ox4. Dr monte notified of pt status.
--- NOTE | 2024-07-06 12:30 | PC.NURSE ---
Pt discharged home at 1232, ambulated off floor accompanied by spouse. No c/o pain, symptoms have resolved at this time. Discharge instructions reviewed with patient, IV removed. Patient left the room with all belongings.
== END 2024-07-06 12:35 | disposition home or self-care (01) ==
PROVIDERS: Emergency Provider Emergency Medicine; Family Provider Family Medicine; PCP Family Medicine
DX: R20.0 Anesthesia of skin (principal); R29.700 NIHSS score 0; Z79.01 Long term (current) use of anticoagulants
CPT/HCPCS: 36415; 70450; 70496; 70498; 70551; 80053; 82550; 82962; 84484; 85025; 85610; 85730; 93005; 93010; 99284; Q9967

== ENCOUNTER → 2024-08-24 08:24 | Outpatient (CLI) | payer OTHER, SELFPAY ==
[2024-02-19 15:35] VITALS: BMI 38.2
[2024-08-24 08:45] LABS: Hematocrit 32.0 % (36-46); Hemoglobin 10.4 g/dL (12.0-16.0)
[2024-08-24 09:03] LABS: Protein (Total) Urine Random 24 mg/dL (0-12); Protein Creatinine Ratio Urine 0.31 GRAM/24H
[2024-08-24 09:06] LABS: Blood Urea Nitrogen 19 mg/dL (7-17); Calcium 9.0 mg/dL (8.4-10.2); Carbon Dioxide 23 mmol/L (22-32); Chloride 104 mmol/L (98-107); Estimated Glomerular Filt Rate > 60 mL/min (>60); Glucose 165 mg/dL (70-99); HEMOLYSIS < 15 (0-50); Potassium 4.3 mmol/L (3.4-5.1); Sodium 138 mmol/L (137-145)
== END ==
PROVIDERS: Family Provider Family Medicine; PCP Family Medicine; Referring Provider Student in an Organized Health Care Education/Training Program; Visit Provider Student in an Organized Health Care Education/Training Program
DX: D70.9 Neutropenia, unspecified (principal); N05.9 Unspecified nephritic syndrome with unspecified morphologic changes; R80.9 Proteinuria, unspecified; D63.1 Anemia in chronic kidney disease; N25.81 Secondary hyperparathyroidism of renal origin
CPT/HCPCS: 36415; 80048; 82570; 83970; 84156; 85014; 85018

== ENCOUNTER → 2024-11-16 09:15 | Outpatient (CLI) | payer OTHER, SELFPAY ==
[2024-02-19 15:35] VITALS: BMI 38.2
[2024-11-16 10:00] LABS: Add Manual Diff / Slide Review NO; Hematocrit 31.1 % (36-46); Hemoglobin 10.5 g/dL (12.0-16.0); Lymphocytes Absolute Auto 1100 /uL (1100-4500); Mean Corpuscular HGB Conc 33.6 % (30-36); Mean Corpuscular Hemoglobin 28.1 PG (26-34); Mean Corpuscular Volume 83.7 fL (80-100); Platelet Count 268 X10^3/uL (150-400)
[2024-11-16 10:35] LABS: Alanine Aminotransferase 35 IU/L (<35); Albumin 4.1 g/dL (3.5-5.0); Albumin Globulin Ratio 1.4 (1.0-2.8); Alkaline Phosphatase 109 U/L (38-126); Blood Urea Nitrogen 19 mg/dL (7-17); Calcium 9.1 mg/dL (8.4-10.2); Carbon Dioxide 25 mmol/L (22-32); Chloride 103 mmol/L (98-107); Cholesterol 109 mg/dL (140-199); Estimated Glomerular Filt Rate > 60 mL/min (>60); Globulin 2.9 g/dL (1.7-4.1); Glucose 118 mg/dL (70-99); HDL Cholesterol 52 mg/dL (40-60); HEMOLYSIS < 15 (0-50); Potassium 4.6 mmol/L (3.4-5.1); Sodium 138 mmol/L (137-145); Total Protein 7.0 g/dL (6.3-8.2); Triglycerides 120 mg/dL (35-150)
[2024-11-16 11:14] LABS: Ferritin 10 ng/mL (11-264)
[2024-11-17 04:08] LABS: CRP, High Sensitivity 1.64 mg/L (0.00-3.00)
== END ==
PROVIDERS: Family Provider Family Medicine; PCP Family Medicine; Referring Provider Family Medicine; Visit Provider Family Medicine
DX: I10 Essential (primary) hypertension (principal); E78.5 Hyperlipidemia, unspecified; I63.9 Cerebral infarction, unspecified
CPT/HCPCS: 36415; 80053; 80061; 82728; 85025; 86140